=== PATIENT | male | born 1980 | race Caucasian/White ===

== ENCOUNTER 2016-09-02 11:53 | Inpatient (IN) | payer SELFPAY ==
[~2016-09-02] VITALS: Ht 175.3 cm; Wt 111.7 kg
[2016-09-02] MEDS ORDERED: IV NORMAL SALINE 1000ML BAG 1,000 ML IV SCH (13:00)
[2016-09-02] MEDS ORDERED: ONDANSETRON PF 4 MG/2 ML VIAL. IV ONE (13:00)
[2016-09-02] MEDS: FENTANYL PF 100 MCG/2 ML VIAL. IV PRN ×4 (13:13→14:52)
--- NOTE | 2016-09-02 13:13 | PHYS DOC ---
Past Medical History Past Medical History: Cancer, Other Additional Past Medical Histor: gastric ulcers; C-diff Past Surgical History: Tonsillectomy, Other Additional Past Surgical Histo: partial colectomy; ulcer sx Alcohol Use: Rarely Drug Use: None Adult General Chief Complaint Chief Complaint: NAUSEA/VOMITING/DIARRHA HPI HPI Patient is a 35 year old male with a history of colon resection in 2010 due to colon cancer presents with a several day to 2 week history of vomiting and diarrhea and stomach cramps. He was seen last night at [facility] and given a liter of IV fluids, reports that CT scan didn't show anything. He was discharged from the ED, states that he has vomited twice this morning and had diarrhea about 3 times an hour. He's had blood in his emesis and stool. He continues to have stomach cramps. He does have an ongoing problem with stomach cramps, he was referred to a GI doctor at . He has seen Dr. Gallegos at [facility]. He had an endoscopy in April 2016 that showed "a lot of inflammation" but he doesn't believe they gave him a specific diagnosis. Review of Systems Review of Systems Constitutional: Denies fever or chills [] Eyes: Denies change in visual acuity, redness, or eye pain [] HENT: Denies nasal congestion or sore throat [] Respiratory: Denies cough or shortness of breath [] Cardiovascular: Denies chest pain GI: As in history of present illness : Denies dysuria or hematuria [] Musculoskeletal: Denies back pain or joint pain [] Integument: Denies rash or skin lesions [] Neurologic: Denies headache, focal weakness or sensory changes [] Current Medications Current Medications Current Medications Medications (Trade) Dose Ordered Sig/Roel Start Time Stop Time Status Last Admin Dose Admin Fentanyl Citrate (Fentanyl 2ml Vial) 25 mcg PRN Q15MIN PRN 09/02/16 13:00 09/02/16 16:50 DC 09/02/16 14:52 25 MCG Ondansetron HCl 4 mg 4 mg 1X ONCE 09/02/16 13:00 09/02/16 13:05 DC 09/02/16 13:12 4 MG Sodium Chloride (Iv Sodium Chloride 0.9% 1000ml Bag) 1,000 ml @ 1,000 mls/hr 1X ONCE 09/02/16 16:00 09/02/16 16:59 DC 09/02/16 16:06 1,000 MLS/HR Allergies Allergies Allergies Coded Allergies Type Severity Reaction Last Updated Verified No Known Drug Allergies 09/02/16 No Physical Exam Physical Exam Constitutional: Well developed, well nourished, no acute distress, non-toxic appearance. Tachycardic in the 130s, alert, mentating normally. HENT: Normocephalic, atraumatic, bilateral external ears normal, nose normal. [ ] Eyes: conjunctiva normal, no discharge. [] Neck: Normal range of motion, no stridor. [] Cardiovascular:Heart rate regular tachycardia, no murmur [] Lungs & Thorax: Bilateral breath sounds clear to auscultation [] Abdomen: Bowel sounds quiet, not obstructive sounding,, soft, nondistended, no masses, no pulsatile masses. Mild tenderness to palpation on the right side of the abdomen nonspecifically. No rebound or guarding. Skin: Warm, dry, no erythema, no rash. [] Back: No tenderness, no CVA tenderness. [] Extremities: No tenderness, no cyanosis, no clubbing, ROM intact, no edema. [] Neurologic: Alert and oriented X 3, normal motor function, normal sensory function, no focal deficits noted. [] Current Patient Data Vital Signs Vital Signs Date Time Temp Pulse Resp B/P Pulse Ox O2 Delivery O2 Flow Rate FiO2 09/02/16 16:01 114 18 156/97 94 09/02/16 15:31 Room Air 09/02/16 12:40 98.4 98.4 Lab Values Laboratory Tests Test 09/02/16 12:46 09/02/16 13:10 09/02/16 16:00 White Blood Count 46.8x10^3/uL (4.0-11.0) *H Red Blood Count 6.10x10^6/uL (4.30-5.70) H Hemoglobin 18.1g/dL (13.0-17.5) H Hematocrit 52.6% (39.0-53.0) Mean Corpuscular Volume 86fL (79-100) Mean Corpuscular Hemoglobin 30pg (25-35) Mean Corpuscular Hemoglobin Concent 35g/dL (31-37) Red Cell Distribution Width 12.9% (11.5-14.5) Platelet Count 596x10^3/uL (140-400) H Neutrophils (%) (Auto) 87% (31-73) H Lymphocytes (%) (Auto) 10% (24-48) L Monocytes (%) (Auto) 4% (0-9) Eosinophils (%) (Auto) 0% (0-3) Basophils (%) (Auto) 0% (0-3) Neutrophils # (Auto) 40.6x10^3uL (1.8-7.7) H Lymphocytes # (Auto) 4.5x10^3/uL (1.0-4.8) Monocytes # (Auto) 1.7x10^3/uL (0.0-1.1) H Eosinophils # (Auto) 0.0x10^3/uL (0.0-0.7) Basophils # (Auto) 0.1x10^3/uL (0.0-0.2) Segmented Neutrophils % 75% (35-66) H Band Neutrophils % 6% (0-9) Lymphocytes % 16% (24-48) L Monocytes % 3% (0-10) Toxic Granulation Slight Platelet Estimate Adequate (ADEQUATE) Sodium Level 139mmol/L (136-145) Potassium Level 3.5mmol/L (3.5-5.1) Chloride Level 101mmol/L (98-107) Carbon Dioxide Level 17mmol/L (21-32) L Anion Gap 21 (6-14) H Blood Urea Nitrogen 16mg/dL (8-26) Creatinine 1.3mg/dL (0.7-1.3) Estimated GFR (Cockcroft-Gault) 62.5 BUN/Creatinine Ratio 12 (6-20) Glucose Level 239mg/dL (70-99) H Calcium Level 9.8mg/dL (8.5-10.1) Total Bilirubin 0.7mg/dL (0.2-1.0) Aspartate Amino Transferase (AST) 38U/L (15-37) H Alanine Aminotransferase (ALT) 88U/L (16-63) H Alkaline Phosphatase 113U/L (46-116) Total Protein 9.0g/dL (6.4-8.2) H Albumin 4.2g/dL (3.4-5.0) Albumin/Globulin Ratio 0.9 (1.0-1.7) L Lipase 124U/L (73-393) Urine Collection Type Unknown Urine Color [place] Urine Clarity Clear Urine pH 6.0 Urine Specific [place] >=1.030 Urine Protein 100mg/dL (NEG-TRACE) Urine Glucose (UA) 100mg/dL (NEG) Urine Ketones (Stick) 15mg/dL (NEG) Urine Blood Negative (NEG) Urine Nitrite Negative (NEG) Urine Bilirubin Negative (NEG) Urine Urobilinogen Dipstick 0.2mg/dL (0.2 mg/dL) Urine Leukocyte Esterase Negative (NEG) Urine RBC 0/HPF (0-2) Urine WBC 0/HPF (0-4) Urine Bacteria 0/HPF (0-FEW) Urine Hyaline Casts Many/HPF Urine Mucus Marked/LPF Urine Opiates Screen Pos (NEG) Urine Methadone Screen Neg (NEG) Urine Barbiturates Neg (NEG) Urine Phencyclidine Screen Neg (NEG) Urine Amphetamine/Methamphetamine Neg (NEG) Urine Benzodiazepines Screen Neg (NEG) Urine Cocaine Screen Neg (NEG) Urine Cannabinoids Screen Neg (NEG) Urine Ethyl Alcohol Neg (NEG) Lactic Acid Level 2.6mmol/L (0.4-2.0) H Laboratory Tests 09/02/16 12:46 Laboratory Tests 09/02/16 12:46 EKG EKG 12-lead EKG read by me. Sinus tachycardia. Heart rate 135. There are no acute ST or T wave changes indicative of ischemia or infarction. No STEMI. 1238 [] Radiology/Procedures Radiology/Procedures I reviewed the patient's CT scan of the abdomen and pelvis results from last night at [facility]. Radiologist reading is no acute findings. One view portable chest x-ray today read by the radiologist. No acute abnormality. [] Course & Med Decision Making Course & Med Decision Making Pertinent Labs and Imaging studies reviewed. (See chart for details) I talked to the patient and his . Since he just had a CT scan last night at [facility], we will not repeat that. His abdomen exam is quite benign today. He is quite tachycardic, likely from dehydration. We will give him a liter of IV fluids and check some labs. They're agreeable to that plan. After 2 L the patient remained tachycardic although improved from 130s to 1 teens. I ordered a third liter of IV fluids. Last night in the [facility] ED his white count was elevated at over 29,000, today it is even much higher at 46, 000. We do not have an explanation for this. The patient's abdomen exam is really quite benign. CT scan last night was unrevealing. I don't believe that his leukocytosis is from an intra-abdominal etiology. Although he complained of diarrhea 3 times an hour, he was in the ED for several hours and didn't have any diarrhea at all here. He didn't have any vomiting but was given an antiemetic. We will admit the patient for his marked leukocytosis. I discussed the case with Dr. leger, [facility]. He will admit the patient. I wrote bridge orders. [] Dragon Disclaimer Dragon Disclaimer This electronic medical record was generated, in whole or in part, using a voice recognition dictation system. Departure Departure Impression: Primary Impression: Leukocytosis Additional Impression: Dehydration Disposition: ADMITTED INPATIENT Admitting Physician: Bing Leger Condition: IMPROVED Referrals: ILIANA GALLEGOS (PCP) Problem Qualifiers NALDO DAVENPORT MD Sep 02, 2016 13:13
[2016-09-02 13:19] LABS: CALCIUM 9.8 mg/dL (8.5-10.1); CREATININE 1.3 mg/dL (0.7-1.3); GFR 62.5; POTASSIUM 3.5 mmol/L (3.5-5.1)
[2016-09-02 13:24] LABS: ALBUMIN 4.2 g/dL (3.4-5.0); ALBUMIN/GLOBULIN RATIO 0.9 (1.0-1.7); TOTAL BILIRUBIN 0.7 mg/dL (0.2-1.0)
[2016-09-02 13:25] LABS: BILIRUBIN,URINE NEGATIVE (NEG); GLUCOSE,URINE 100 mg/dL (NEG); NITRITE,URINE NEGATIVE (NEG); PROTEIN,URINE 100 mg/dL (NEG-TRACE); UROBILINOGEN,URINE 0.2 mg/dL (0.2 mg/dL)
[2016-09-02 13:26] LABS: BASO # 0.1 x10^3/uL (0.0-0.2); BASO % 0 % (0-3); EOS % 0 % (0-3); HEMATOCRIT 52.6 % (39.0-53.0); HEMOGLOBIN 18.1 g/dL (13.0-17.5); LYMPH # 4.5 x10^3/uL (1.0-4.8); LYMPH % 10 % (24-48); MEAN CORPUSCULAR HEMOGLOBIN 30 pg (25-35); MEAN CORPUSCULAR HGB CONC 35 g/dL (31-37); MEAN CORPUSCULAR VOLUME 86 fL (79-100); MONO % 4 % (0-9); NEUT % 87 % (31-73); PLATELET COUNT 596 x10^3/uL (140-400); RED CELL DISTRIBUTION WIDTH 12.9 % (11.5-14.5)
[2016-09-02 13:33] LABS: BARBITURATES NEG (NEG); BENZODIAZEPINES NEG (NEG); CANNABINOIDS NEG (NEG); COCAINE NEG (NEG); ETHANOL, URINE NEG (NEG); METHADONE NEG (NEG); OPIATES POS (NEG); PHENCYCLIDINE NEG (NEG)
[2016-09-02 13:36] LABS: BACTERIA,URINE 0 /HPF (0-FEW); RBC,URINE 0 /HPF (0-2); WBC,URINE 0 /HPF (0-4)
[2016-09-02 13:39] LABS: WHITE BLOOD COUNT 46.8 x10^3/uL (4.0-11.0)
[2016-09-02] MEDS ORDERED: IV NORMAL SALINE 1000ML BAG 1,000 ML IV ONE ×3 (13:45→23:00)
--- NOTE | 2016-09-02 14:01 | EKG ---
[facility] [address] [place] [address] Test Date: 2016-09-02 Test Time: 12:38:57 Pat Name: DEB HOWELL Department: Room: Gender: M Grab Hooker: : 1980 Requested By: NALDO DAVENPORT Order Number: [id number] Reading MD: Carolyne Burnette Measurements Intervals [place] Rate: 135 P: -86 NV: 124 QRS: 12 QRSD: 90 T: 62 QT: 294 QTc: 445 Interpretive Statements SINUS TACHYCARDIA OTHERWISE NORMAL ECG RI6.01 No previous ECG available for comparison Electronically Signed On 09-06-2016 15:29:00 X RAY SERVICE TECHNICIAN by Carolyne Burnette
[2016-09-02 14:51] LABS: PLT ESTIMATE ADEQUATE (ADEQUATE); TOXIC GRANULATION SLIGHT
--- NOTE | 2016-09-02 16:11 | RAD ---
Portable AP upright view CXR: Clinical indications: Epigastric pain with nausea and vomiting. Leukocytosis.. Comparison: None available. Findings: No acute lung infiltrate or pleural effusion or pulmonary edema or lung mass or pneumothorax is seen. The heart size, pulmonary vasculature, mediastinum and both miguel angel are unremarkable. Impression: No acute radiographic abnormality is seen.
[2016-09-02] MEDS ORDERED: FENTANYL PF 100 MCG/2 ML VIAL. IV PRN (16:15)
[2016-09-02] MEDS ORDERED: ONDANSETRON PF 4 MG/2 ML VIAL. IV PRN (16:15)
--- NOTE | 2016-09-02 16:57 | PDOC1 ---
History and Physical Date of Admission Date of Admission DATE: 09/02/16 TIME: 16:52 Identification/Chief Complaint Chief Complaint abd pain, diarrhea Source Source: Caregiver, Chart review, Patient History of Present Illness History of Present Illness Mr Bower, is a 35 year old male with a history of colon resection in 2010 due to colon cancer. He has a 2 day history of abd pain and diarrhea. He was seen in ER at [facility] yesterday, marked leukocytosis, appeared dehydrated, given 2 liters IV fluid and DC from ER Pt has mult freq stools, he feels unlike prior c. diff due to smell./ He has history of multiple c.diff infections, reports 8 prior infection evenet his PCP had recently given him Toradol for abd pain, and patient reports vomiting "blood clots" last night, and abd pain is worse, 02/[address] Gallegos at [facility] Past Medical History Cardiovascular: No pertinent hx Pulmonary: No pertinent hx GI: Gastritis, Other (c.diff) Heme/Onc: Cancer Psych: No pertinent hx Rheumatologic: No pertinent hx Infectious disease: Other ENT: No pertinent hx Renal/: No pertinent hx Endocrine: No pertinent hx Dermatology: No pertinent hx Social History Smoke: No ALCOHOL: none Drugs: None Current Problem List Problem List Problems Medical Problems: (1) Dehydration Status: Acute (2) Leukocytosis Status: Acute Problems: Current Medications Current Medications Current Medications Fentanyl Citrate 25 mcg 25 mcg PRN Q15MIN PRN IV PAIN GREATER THAN 3/10 Last administered on 09/02/16 14:52; Start 09/02/16 at 13:00; Stop 09/02/16 at 16:50; Status DC Sodium Chloride (Iv Sodium Chloride 0.9% 1000ml Bag) 1,000 ml @ 1,000 mls/hr Q1H IV Last administered on 09/02/16 13:12; Start 09/02/16 at 13:00; Stop at 13:59; Status DC Ondansetron HCl 4 mg 4 mg 1X ONCE IV Last administered on 09/02/16 13:12; Start 09/02/16 at 13:00; Stop 09/02/16 at 13:05; Status DC Sodium Chloride 1,000 ml @ 1,000 mls/hr 1X ONCE IV Last administered on 14:08; Start 09/02/16 at 13:45; Stop 09/02/16 at 14:44; Status DC Sodium Chloride (Iv Sodium Chloride 0.9% 1000ml Bag) 1,000 ml @ 1,000 mls/hr 1X ONCE IV Last administered on 09/02/16t 16:06; Start 09/02/16 at 16:00; Stop 09/02/16 at 16:59 Ondansetron HCl (Zofran) 4 mg PRN Q8HRS PRN IV NAUSEA/VOMITING; Start 09/02/16 at 16:15; Stop 09/03/16 at 16:14 Fentanyl Citrate 50 mcg 50 mcg PRN Q1HR PRN IV PAIN; Start 09/02/16 at 16:15; Stop 09/04/16 at 23:59 Sodium Chloride (Iv Sodium Chloride 0.9% 1000ml Bag) 1,000 ml @ 100 mls/hr Q10H IV ; Start 09/02/16 at 16:06; Stop 09/03/16 at 16:05 Metronidazole (Flagyl) 500 mg Q8HRS PO ; Start 09/02/16 at 17:00 Morphine Sulfate 4 mg PRN Q2HR PRN IV pain; Start 09/02/16 at 17:00 Oxycodone/ Acetaminophen (Percocet 7.5/ 325) 1 tab PRN Q4HRS PRN PO pain; Start 09/02/16 at 17:00 Multi-Ingredient Mouthwash/Gargle (Gi Cocktail Single Dose) 15 ml 1X ONCE SWSW ; Start 09/02/16 at 17:00; Stop 09/02/16 at 17:01 Sucralfate (Carafate) 1 gm BID PO ; Start 09/02/16 at 21:00 Pantoprazole Sodium (Protonix Vial) 40 mg 1X ONCE IVP ; Start 09/02/16 at 17:00 ; Stop 09/02/16 at 17:01 Pantoprazole Sodium (Protonix) 40 mg BIDAC PO ; Start 09/03/16 at 07:30 Insulin Aspart (Novolog) 0-7 UNITS TIDWMEALS SQ ; Start 09/02/16 at 17:00; Status UNV Dextrose 12.5 gm 12.5 gm PRN Q15MIN PRN IV SEE COMMENTS; Start 09/02/16 at 17:00 ; Status UNV Potassium Chloride (KCl Premix 10meq) 100 ml @ 100 mls/hr Q1H IV ; Start at 17:00; Stop 09/02/16 at 18:59; Status UNV Allergies Allergies: Coded Allergies: No Known Drug Allergies (Unverified , 09/02/16) ROS General: YES: Appetite, Fatigue, Malaise, No: Chills, Night Sweats, Other PSYCHOLOGICAL ROS: No: Anxiety, Behavioral Disorder, Concentration difficultie , Decreased libido, Depression, Disorientation, Hallucinations, Hostility, Irritablity, Memory difficulties, Mood Swings, Obsessive thoughts, Other, Physical abuse, Sexual abuse, Sleep disturbances, Suicidal ideation Eyes: No Blurry vision, No Decreased vision, No Double vision, No Dry eyes, No Excessive tearing, No Eye Pain, No Itchy Eyes, No Loss of vision, No Other, No Photophobia, No Scotomata, No Uses contacts, No Uses glasses HEENT: No: Epistaxis, Heacaches, Hearing change, Nasal congestion, Nasal discharge, Oral lesions, Other, Sinus pain, Sneezing, Snoring, Sore Throat, Tinnitus, Vertigo, Visual Changes, Vocal changes Respiratory: No: Cough, Hemoptysis, Orthopnea, Other, Pleuritic Pain, SOB with excertion, Shortness of breath, Sputum Changes, Stridor, Tachypnea, Wheezing Cardiovascular: No Chest Pain, No Edema, No Lt Headedness, No Orthopnea, No Other, No Palpitations, No Paroxysmal Noc. Dyspnea Gastrointestinal: Yes Abdominal Pain, Yes Diarrhea, Yes Nausea, Yes Other ( hematemesis), Yes Vomiting, No Constipation, No Hematochezia, No Melena Genitourinary: No , No , No , No , No , No , No , No Discharge, No Dysuria, No Flank Pain, No Frequency, No Hematuria, No Incontinence, No Other, No Pain, No Retention, No Urgency Musculoskeletal: No Gait Disturbance, No Joint Pain, No Joint Stiffness, No Joint Swelling, No Muscle Pain, No Muscular Weakness, No Other, No Pain In:, No Swelling In: Neurological: No Behavorial Changes, No Bowel/Bladder ControlChng, No Confusion , No Dizziness, No Gait Disturbance, No Headaches, No Impaired Coord/balance, No Memory Loss, No Numbness/Tingling, No Other, No Seizures, No Speech Problems , No Tremors, No Visual Changes, No Weakness Skin: Yes Dry Skin, No Acne, No Eczema, No Hair Changes, No Lumps, No Mole Changes, No Mottling, No Nail Changes, No Other, No Pruritus, No Rash, No Skin Lesion Changes Physical Exam General: Alert, Oriented X3, Cooperative, mild distress HEENT: Atraumatic, PERRLA, EOMI, Mucous membr. moist/pink Lungs: Clear to auscultation, Normal air movement Heart: S1S2 Abdomen: Normal bowel sounds, Soft (tender diffusely) Rectal Exam: not examined Extremities: No clubbing Skin: No rashes, Other (dry, poor turgor) Neuro: Normal speech, Normal tone, Sensation intact Psych/Mental Status: Mood NL Vitals Vitals Vital Signs Date Time Temp Pulse Resp B/P Pulse Ox O2 Delivery O2 Flow Rate FiO2 09/02/16 15:31 108 18 150/87 94 Room Air 09/02/16 12:40 98.4 98.4 Labs Labs Laboratory Tests Test 09/02/16 12:46 09/02/16 13:10 09/02/16 16:00 White Blood Count 46.8x10^3/uL (4.0-11.0) Red Blood Count 6.10x10^6/uL (4.30-5.70) Hemoglobin 18.1g/dL (13.0-17.5) Hematocrit 52.6% (39.0-53.0) Mean Corpuscular Volume 86fL (79-100) Mean Corpuscular Hemoglobin 30pg (25-35) Mean Corpuscular Hemoglobin Concent 35g/dL (31-37) Red Cell Distribution Width 12.9% (11.5-14.5) Platelet Count 596x10^3/uL (140-400) Neutrophils (%) (Auto) 87% (31-73) Lymphocytes (%) (Auto) 10% (24-48) Monocytes (%) (Auto) 4% (0-9) Eosinophils (%) (Auto) 0% (0-3) Basophils (%) (Auto) 0% (0-3) Neutrophils # (Auto) 40.6x10^3uL (1.8-7.7) Lymphocytes # (Auto) 4.5x10^3/uL (1.0-4.8) Monocytes # (Auto) 1.7x10^3/uL (0.0-1.1) Eosinophils # (Auto) 0.0x10^3/uL (0.0-0.7) Basophils # (Auto) 0.1x10^3/uL (0.0-0.2) Segmented Neutrophils % 75% (35-66) Band Neutrophils % 6% (0-9) Lymphocytes % 16% (24-48) Monocytes % 3% (0-10) Toxic Granulation Slight Platelet Estimate Adequate (ADEQUATE) Sodium Level 139mmol/L (136-145) Potassium Level 3.5mmol/L (3.5-5.1) Chloride Level 101mmol/L (98-107) Carbon Dioxide Level 17mmol/L (21-32) Anion Gap 21 (6-14) Blood Urea Nitrogen 16mg/dL (8-26) Creatinine 1.3mg/dL (0.7-1.3) Estimated GFR (Cockcroft-Gault) 62.5 BUN/Creatinine Ratio 12 (6-20) Glucose Level 239mg/dL (70-99) Calcium Level 9.8mg/dL (8.5-10.1) Total Bilirubin 0.7mg/dL (0.2-1.0) Aspartate Amino Transf (AST/SGOT) 38U/L (15-37) Alanine Aminotransferase (ALT/SGPT) 88U/L (16-63) Alkaline Phosphatase 113U/L (46-116) Total Protein 9.0g/dL (6.4-8.2) Albumin 4.2g/dL (3.4-5.0) Albumin/Globulin Ratio 0.9 (1.0-1.7) Lipase 124U/L (73-393) Urine Collection Type Unknown Urine Color [place] Urine Clarity Clear Urine pH 6.0 Urine Specific [place] >=1.030 Urine Protein 100mg/dL (NEG-TRACE) Urine Glucose (UA) 100mg/dL (NEG) Urine Ketones (Stick) 15mg/dL (NEG) Urine Blood Negative (NEG) Urine Nitrite Negative (NEG) Urine Bilirubin Negative (NEG) Urine Urobilinogen Dipstick 0.2mg/dL (0.2 mg/dL) Urine Leukocyte Esterase Negative (NEG) Urine RBC 0/HPF (0-2) Urine WBC 0/HPF (0-4) Urine Bacteria 0/HPF (0-FEW) Urine Hyaline Casts Many/HPF Urine Mucus Marked/LPF Urine Opiates Screen Pos (NEG) Urine Methadone Screen Neg (NEG) Urine Barbiturates Neg (NEG) Urine Phencyclidine Screen Neg (NEG) Urine Amphetamine/Methamphetamine Neg (NEG) Urine Benzodiazepines Screen Neg (NEG) Urine Cocaine Screen Neg (NEG) Urine Cannabinoids Screen Neg (NEG) Urine Ethyl Alcohol Neg (NEG) Lactic Acid Level 2.6mmol/L (0.4-2.0) Laboratory Tests Test 09/02/16 12:46 09/02/16 13:10 09/02/16 16:00 White Blood Count 46.8x10^3/uL (4.0-11.0) Red Blood Count 6.10x10^6/uL (4.30-5.70) Hemoglobin 18.1g/dL (13.0-17.5) Hematocrit 52.6% (39.0-53.0) Mean Corpuscular Volume 86fL (79-100) Mean Corpuscular Hemoglobin 30pg (25-35) Mean Corpuscular Hemoglobin Concent 35g/dL (31-37) Red Cell Distribution Width 12.9% (11.5-14.5) Platelet Count 596x10^3/uL (140-400) Neutrophils (%) (Auto) 87% (31-73) Lymphocytes (%) (Auto) 10% (24-48) Monocytes (%) (Auto) 4% (0-9) Eosinophils (%) (Auto) 0% (0-3) Basophils (%) (Auto) 0% (0-3) Neutrophils # (Auto) 40.6x10^3uL (1.8-7.7) Lymphocytes # (Auto) 4.5x10^3/uL (1.0-4.8) Monocytes # (Auto) 1.7x10^3/uL (0.0-1.1) Eosinophils # (Auto) 0.0x10^3/uL (0.0-0.7) Basophils # (Auto) 0.1x10^3/uL (0.0-0.2) Segmented Neutrophils % 75% (35-66) Band Neutrophils % 6% (0-9) Lymphocytes % 16% (24-48) Monocytes % 3% (0-10) Toxic Granulation Slight Platelet Estimate Adequate (ADEQUATE) Sodium Level 139mmol/L (136-145) Potassium Level 3.5mmol/L (3.5-5.1) Chloride Level 101mmol/L (98-107) Carbon Dioxide Level 17mmol/L (21-32) Anion Gap 21 (6-14) Blood Urea Nitrogen 16mg/dL (8-26) Creatinine 1.3mg/dL (0.7-1.3) Estimated GFR (Cockcroft-Gault) 62.5 BUN/Creatinine Ratio 12 (6-20) Glucose Level 239mg/dL (70-99) Calcium Level 9.8mg/dL (8.5-10.1) Total Bilirubin 0.7mg/dL (0.2-1.0) Aspartate Amino Transf (AST/SGOT) 38U/L (15-37) Alanine Aminotransferase (ALT/SGPT) 88U/L (16-63) Alkaline Phosphatase 113U/L (46-116) Total Protein 9.0g/dL (6.4-8.2) Albumin 4.2g/dL (3.4-5.0) Albumin/Globulin Ratio 0.9 (1.0-1.7) Lipase 124U/L (73-393) Urine Collection Type Unknown Urine Color [place] Urine Clarity Clear Urine pH 6.0 Urine Specific [place] >=1.030 Urine Protein 100mg/dL (NEG-TRACE) Urine Glucose (UA) 100mg/dL (NEG) Urine Ketones (Stick) 15mg/dL (NEG) Urine Blood Negative (NEG) Urine Nitrite Negative (NEG) Urine Bilirubin Negative (NEG) Urine Urobilinogen Dipstick 0.2mg/dL (0.2 mg/dL) Urine Leukocyte Esterase Negative (NEG) Urine RBC 0/HPF (0-2) Urine WBC 0/HPF (0-4) Urine Bacteria 0/HPF (0-FEW) Urine Hyaline Casts Many/HPF Urine Mucus Marked/LPF Urine Opiates Screen Pos (NEG) Urine Methadone Screen Neg (NEG) Urine Barbiturates Neg (NEG) Urine Phencyclidine Screen Neg (NEG) Urine Amphetamine/Methamphetamine Neg (NEG) Urine Benzodiazepines Screen Neg (NEG) Urine Cocaine Screen Neg (NEG) Urine Cannabinoids Screen Neg (NEG) Urine Ethyl Alcohol Neg (NEG) Lactic Acid Level 2.6mmol/L (0.4-2.0) VTE Prophylaxis Ordered VTE Prophylaxis Devices: No VTE Pharmacological Prophylaxi: Yes Assessment/Plan Assessment/Plan acute abd pain, w/. diarrhea isolate, send c.diff due to prior hx, start flagyl, consult ID Acute abd pain, hematemesis, given NSAID for pain recently, PPI IV x1, then PO BID, carafate GI consult, for GERD, maybe active ulcer Metabolic gap acidosis, tachycardia, tachpnea, leukocytosis, sepsis, lactate pending 3 liters IV Fluid given in ER, HR still 110, will cont iv fluid unsure if CKD2 or vasomotor, aggressive IV fluid potassium X2 due to aggressive fluid admit from ER LUPE LIVE MD Sep 02, 2016 16:57
[2016-09-02] MEDS ORDERED: POTASSIUM CHLORIDE 20 MEQ TABLET.ER. PO ONE (17:00)
[2016-09-02] MEDS ORDERED: DEXTROSE 50% 25 GM / 50ML DISP.SYRIN. IV PRN (17:00)
[2016-09-02] MEDS ORDERED: LIDO:MAALOX:DONNATAL 1:1:1 15 ML SINGLE DOSE SWSW ONE (17:00)
[2016-09-02] MEDS ORDERED: PANTOPRAZOLE IV PUSH 40 MG VIAL. IVP ONE (17:00)
[2016-09-02] MEDS: IV NORMAL SALINE 1000ML BAG 1,000 ML IV SCH (17:20)
[2016-09-02] MEDS: METRONIDAZOLE 500 MG TABLET. PO SCH ×2 (17:21→20:54)
[2016-09-02] MEDS: INSULIN ASPART 300 UNITS/3 ML INSULN.PEN SQ SCH (17:30)
[2016-09-02] MEDS: POTASSIUM CHLORIDE 10MEQ 100 ML IV SCH ×2 (18:21→19:56)
[2016-09-02] MEDS: ENOXAPARIN 40 MG/0.4 ML DISP.SYRIN. SQ SCH (18:31)
[2016-09-02 19:00] VITALS: BP 113/90
[2016-09-02] MEDS: SUCRALFATE 1 GM TABLET. PO SCH (20:54)
[2016-09-02] MEDS: MORPHINE SULFATE 4 MG/ML DISP.SYRIN. IV PRN ×2 (20:55→23:15)
[2016-09-02] MEDS ORDERED: ZOLP10TA4 PO (21:02)
[2016-09-02 22:34] VITALS: BP 123/66
[2016-09-02] MEDS: CIPROFLOXACIN HCL 250 MG TABLET PO SCH (23:58)
[2016-09-03 00:08] LABS: CALCIUM 8.2 mg/dL (8.5-10.1); CREATININE 0.8 mg/dL (0.7-1.3); GFR 109.4; POTASSIUM 3.4 mmol/L (3.5-5.1)
[2016-09-03] MEDS: OXYCODONE/APAP 7.5/325 TABLET. PO PRN ×4 (00:23→21:25)
[2016-09-03] MEDS: IV NORMAL SALINE 1000ML BAG 1,000 ML IV SCH ×2 (00:24→11:47)
[2016-09-03] MEDS: MORPHINE SULFATE 4 MG/ML DISP.SYRIN. IV PRN ×8 (01:43→20:04)
[2016-09-03 03:00] VITALS: BP 151/67
[2016-09-03] MEDS: METRONIDAZOLE 500 MG TABLET. PO SCH (05:30)
[2016-09-03 07:15] LABS: BASO # 0.1 x10^3/uL (0.0-0.2); BASO % 0 % (0-3); EOS % 0 % (0-3); HEMOGLOBIN 13.7 g/dL (13.0-17.5); LYMPH # 5.9 x10^3/uL (1.0-4.8); LYMPH % 21 % (24-48); MEAN CORPUSCULAR HEMOGLOBIN 29 pg (25-35); MEAN CORPUSCULAR HGB CONC 33 g/dL (31-37); MEAN CORPUSCULAR VOLUME 88 fL (79-100); MONO % 5 % (0-9); NEUT % 74 % (31-73); PLATELET COUNT 328 x10^3/uL (140-400); RED BLOOD COUNT 4.66 x10^6/uL (4.30-5.70); RED CELL DISTRIBUTION WIDTH 12.7 % (11.5-14.5); WHITE BLOOD COUNT 28.6 x10^3/uL (4.0-11.0)
[2016-09-03 07:27] VITALS: BP 124/70
[2016-09-03] MEDS: INSULIN ASPART 300 UNITS/3 ML INSULN.PEN SQ SCH ×3 (08:00→16:56)
[2016-09-03] MEDS: PANTOPRAZOLE 40 MG TABLET. PO SCH ×2 (08:39→17:10)
[2016-09-03] MEDS: SUCRALFATE 1 GM TABLET. PO SCH ×2 (08:39→20:04)
[2016-09-03] MEDS: VANCOMYCIN 125 MG/2.5 ML ORAL SOLUTION. PO SCH ×4 (08:39→21:25)
[2016-09-03] MEDS: CIPROFLOXACIN HCL 250 MG TABLET PO SCH (08:39)
[2016-09-03 09:14] LABS: ALBUMIN/GLOBULIN RATIO 0.9 (1.0-1.7); CREATININE 0.8 mg/dL (0.7-1.3); GFR 109.4; POTASSIUM 3.2 mmol/L (3.5-5.1); TOTAL BILIRUBIN 0.6 mg/dL (0.2-1.0); TOTAL PROTEIN 6.2 g/dL (6.4-8.2)
--- NOTE | 2016-09-03 09:57 | PDOC2 ---
GI CONSULT Reason For Consult: Diarrhea, h/o colon cancer HPI: HPI: 35 y/o male w/ h/o colon cancer s/p resection in 2010, C Diff (x8 treated w/ Flagyl and oral vanco), and chronic abdominal pain and irregular bowel habits admitted through the ER w/ n/v, diarrhea, and abdominal cramping. He tells me he's been feeling badly since 2013 but symptoms have been worse x 2 weeks. He denies precipitating events including sick contacts, new medication/antibiotic use, and travel. Symptoms began w/ worsening periumbilical "squeezing and twisting" pain that is occasionally aggravated w/ activity. Vicodin has helped similar pain in the past; he saw a doctor and tried Tramadol this time which unhelpful. Since surgery, his bowel habits have been more diarrhea; usually he has 1-3 stools daily, often after eating. Within the past 2 weeks, this has been significantly worse (says >30 stools one day this week). Diarrhea does not seem like previous C Diff. He has had some nausea, mostly w/ cramping, and 2 episodes of vomiting. On 09/01, emesis might have had "dark blood clots" in it. Denies weight loss. Has occasional heartburn that is untreated. Has "sweats" fairly frequently. Feels all previous evaluations (GI and otherwise) have been "useless." Unemployed due to GI issues. Last EGD and colonoscopy by Dr. Dang on 01/17/16 for nausea, abdominal pain, and diarrhea showed esophagitis, H. pylori negative gastritis, and hyperplastic polyp. Pathology from 04/12/15 indicates another previous colonoscopy by Dr. Cyn Daugherty for chronic diarrhea which showed hyperplastic polyp and normal random colon and terminal ileum biopsies. He has also been to for similar symptoms. In fact, he was supposed to have an MRI (?abdomen) yesterday. Additionally, through [facility], he had abnormal celiac serology in 10/2015. He reports follow-up small bowel biopsy (?at ) was negative for celiac sprue. He has recently been to [facility] ER for these symptoms. CT A/P w/ oral and IV contrast on 09/01/16 showed fatty liver and was unrevealing for acute issue. Leukocytosis and dehydration were noted on labs. Here, labs show WBC 46.8 (now 28.6), Hgb 13.7, AST 38, ALT 88, lactic acid 2.6 ( now 1.5). He has been placed on Carafate, PPI, vanco, Cipro, and metronidazole. Stool tests, cortisol level, and celiac serology have been ordered. ID consulted. PMH: PMH: colon cancer s/p resection 2010, GERD, C Diff, tonsillectomy, fatty liver Social History: Smoke: No ALCOHOL: none Drugs: None ROS: GEN: +sweats HEENT: Denies blurred vision, sore throat CV: Denies chest pain RESP: Denies shortness of air, cough GI: Per HPI : Denies hematuria, dysuria ENDO: Denies weight changes NEURO: Denies confusion, dizziness MSK: Denies weakness, joint pain/swelling SKIN: Denies jaundice, pruritus VItals: Vitals: Vital Signs Date Time Temp Pulse Resp B/P Pulse Ox O2 Delivery O2 Flow Rate FiO2 09/03/16 09:24 Room Air 09/03/16 07:27 97.5 93 20 124/70 96 97.5 Labs: Labs: Laboratory Tests Test 09/02/16 12:46 09/02/16 13:10 09/02/16 16:00 09/02/16 20:45 White Blood Count 46.8x10^3/uL (4.0-11.0) Red Blood Count 6.10x10^6/uL (4.30-5.70) Hemoglobin 18.1g/dL (13.0-17.5) Hematocrit 52.6% (39.0-53.0) Mean Corpuscular Volume 86fL (79-100) Mean Corpuscular Hemoglobin 30pg (25-35) Mean Corpuscular Hemoglobin Concent 35g/dL (31-37) Red Cell Distribution Width 12.9% (11.5-14.5) Platelet Count 596x10^3/uL (140-400) Neutrophils (%) (Auto) 87% (31-73) Lymphocytes (%) (Auto) 10% (24-48) Monocytes (%) (Auto) 4% (0-9) Eosinophils (%) (Auto) 0% (0-3) Basophils (%) (Auto) 0% (0-3) Neutrophils # (Auto) 40.6x10^3uL (1.8-7.7) Lymphocytes # (Auto) 4.5x10^3/uL (1.0-4.8) Monocytes # (Auto) 1.7x10^3/uL (0.0-1.1) Eosinophils # (Auto) 0.0x10^3/uL (0.0-0.7) Basophils # (Auto) 0.1x10^3/uL (0.0-0.2) Segmented Neutrophils % 75% (35-66) Band Neutrophils % 6% (0-9) Lymphocytes % 16% (24-48) Monocytes % 3% (0-10) Toxic Granulation Slight Platelet Estimate Adequate (ADEQUATE) Sodium Level 139mmol/L (136-145) Potassium Level 3.5mmol/L (3.5-5.1) Chloride Level 101mmol/L (98-107) Carbon Dioxide Level 17mmol/L (21-32) Anion Gap 21 (6-14) Blood Urea Nitrogen 16mg/dL (8-26) Creatinine 1.3mg/dL (0.7-1.3) Estimated GFR (Cockcroft-Gault) 62.5 BUN/Creatinine Ratio 12 (6-20) Glucose Level 239mg/dL (70-99) Calcium Level 9.8mg/dL (8.5-10.1) Total Bilirubin 0.7mg/dL (0.2-1.0) Aspartate Amino Transf (AST/SGOT) 38U/L (15-37) Alanine Aminotransferase (ALT/SGPT) 88U/L (16-63) Alkaline Phosphatase 113U/L (46-116) Total Protein 9.0g/dL (6.4-8.2) Albumin 4.2g/dL (3.4-5.0) Albumin/Globulin Ratio 0.9 (1.0-1.7) Lipase 124U/L (73-393) Urine Collection Type Unknown Urine Color [place] Urine Clarity Clear Urine pH 6.0 Urine Specific [place] >=1.030 Urine Protein 100mg/dL (NEG-TRACE) Urine Glucose (UA) 100mg/dL (NEG) Urine Ketones (Stick) 15mg/dL (NEG) Urine Blood Negative (NEG) Urine Nitrite Negative (NEG) Urine Bilirubin Negative (NEG) Urine Urobilinogen Dipstick 0.2mg/dL (0.2 mg/dL) Urine Leukocyte Esterase Negative (NEG) Urine RBC 0/HPF (0-2) Urine WBC 0/HPF (0-4) Urine Bacteria 0/HPF (0-FEW) Urine Hyaline Casts Many/HPF Urine Mucus Marked/LPF Urine Opiates Screen Pos (NEG) Urine Methadone Screen Neg (NEG) Urine Barbiturates Neg (NEG) Urine Phencyclidine Screen Neg (NEG) Urine Amphetamine/Methamphetamine Neg (NEG) Urine Benzodiazepines Screen Neg (NEG) Urine Cocaine Screen Neg (NEG) Urine Cannabinoids Screen Neg (NEG) Urine Ethyl Alcohol Neg (NEG) Lactic Acid Level 2.6mmol/L (0.4-2.0) Glucose (Fingerstick) 124mg/dL (70-99) Test 09/02/16 20:55 09/02/16 23:50 09/03/16 06:45 09/03/16 07:55 Lactic Acid Level 3.0mmol/L (0.4-2.0) 1.5mmol/L (0.4-2.0) Sodium Level 141mmol/L (136-145) Potassium Level 3.4mmol/L (3.5-5.1) Chloride Level 109mmol/L (98-107) Carbon Dioxide Level 24mmol/L (21-32) Anion Gap 8 (6-14) Blood Urea Nitrogen 11mg/dL (8-26) Creatinine 0.8mg/dL (0.7-1.3) Estimated GFR (Cockcroft-Gault) 109.4 Glucose Level 100mg/dL (70-99) Calcium Level 8.2mg/dL (8.5-10.1) White Blood Count 28.6x10^3/uL (4.0-11.0) Red Blood Count 4.66x10^6/uL (4.30-5.70) Hemoglobin 13.7g/dL (13.0-17.5) Hematocrit 41.0% (39.0-53.0) Mean Corpuscular Volume 88fL (79-100) Mean Corpuscular Hemoglobin 29pg (25-35) Mean Corpuscular Hemoglobin Concent 33g/dL (31-37) Red Cell Distribution Width 12.7% (11.5-14.5) Platelet Count 328x10^3/uL (140-400) Neutrophils (%) (Auto) 74% (31-73) Lymphocytes (%) (Auto) 21% (24-48) Monocytes (%) (Auto) 5% (0-9) Eosinophils (%) (Auto) 0% (0-3) Basophils (%) (Auto) 0% (0-3) Neutrophils # (Auto) 21.1x10^3uL (1.8-7.7) Lymphocytes # (Auto) 5.9x10^3/uL (1.0-4.8) Monocytes # (Auto) 1.5x10^3/uL (0.0-1.1) Eosinophils # (Auto) 0.0x10^3/uL (0.0-0.7) Basophils # (Auto) 0.1x10^3/uL (0.0-0.2) Glucose (Fingerstick) 82mg/dL (70-99) Test 09/03/16 08:20 Sodium Level 142mmol/L (136-145) Potassium Level 3.2mmol/L (3.5-5.1) Chloride Level 110mmol/L (98-107) Carbon Dioxide Level 24mmol/L (21-32) Anion Gap 8 (6-14) Blood Urea Nitrogen 12mg/dL (8-26) Creatinine 0.8mg/dL (0.7-1.3) Estimated GFR (Cockcroft-Gault) 109.4 BUN/Creatinine Ratio 15 (6-20) Glucose Level 86mg/dL (70-99) Calcium Level 8.0mg/dL (8.5-10.1) Total Bilirubin 0.6mg/dL (0.2-1.0) Aspartate Amino Transf (AST/SGOT) 48U/L (15-37) Alanine Aminotransferase (ALT/SGPT) 66U/L (16-63) Alkaline Phosphatase 76U/L (46-116) Total Protein 6.2g/dL (6.4-8.2) Albumin 3.0g/dL (3.4-5.0) Albumin/Globulin Ratio 0.9 (1.0-1.7) Allergies: Coded Allergies: No Known Drug Allergies (Unverified , 09/02/16) Medications: Current Medications Medications (Trade) Dose Ordered Sig/Roel Route PRN Reason Start Time Stop Time Status Last Admin Dose Admin Fentanyl Citrate 25 mcg 25 mcg PRN Q15MIN PRN IV PAIN GREATER THAN 3/10 09/02/16 13:00 09/02/16 16:50 DC 09/02/16 14:52 Sodium Chloride (Iv Sodium Chloride 0.9% 1000ml Bag) 1,000 ml @ 1,000 mls/hr Q1H IV 09/02/16 13:00 09/02/16 13:59 DC 09/02/16 13:12 Ondansetron HCl 4 mg 4 mg 1X ONCE IV 09/02/16 13:00 09/02/16 13:05 DC 09/02/16 13:12 Sodium Chloride 1,000 ml @ 1,000 mls/hr 1X ONCE IV 09/02/16 13:45 09/02/16 14:44 DC 09/02/16 14:08 Sodium Chloride (Iv Sodium Chloride 0.9% 1000ml Bag) 1,000 ml @ 1,000 mls/hr 1X ONCE IV 09/02/16 16:00 09/02/16 16:59 DC 09/02/16 16:06 Fentanyl Citrate 50 mcg 50 mcg PRN Q1HR PRN IV PAIN 09/02/16 16:15 09/04/16 23:59 09/02/16 17:21 Sodium Chloride (Iv Sodium Chloride 0.9% 1000ml Bag) 1,000 ml @ 100 mls/hr Q10H IV 09/02/16 16:06 09/03/16 16:05 09/03/16 00:24 Metronidazole (Flagyl) 500 mg Q8HRS PO 09/02/16 17:00 09/03/16 05:30 Morphine Sulfate 4 mg PRN Q2HR PRN IV pain 09/02/16 17:00 09/03/16 08:40 Oxycodone/ Acetaminophen (Percocet 7.5/ 325) 1 tab PRN Q4HRS PRN PO pain 09/02/16 17:00 09/03/16 00:23 Multi-Ingredient Mouthwash/Gargle (Gi Cocktail Single Dose) 15 ml 1X ONCE SWSW 09/02/16 17:00 09/02/16 17:01 DC 09/02/16 17:21 Sucralfate (Carafate) 1 gm BID PO 2/8/17 21:00 09/03/16 08:39 Pantoprazole Sodium (Protonix Vial) 40 mg 1X ONCE IVP 09/02/16 17:00 09/02/16 17:01 DC 09/02/16 17:21 Pantoprazole Sodium 40 mg 40 mg BIDAC PO 09/03/16 07:30 09/03/16 08:39 Potassium Chloride (KCl Premix 10meq) 100 ml @ 100 mls/hr Q1H IV 09/02/16 17:00 09/02/16 18:59 DC 09/02/16 19:56 Potassium Chloride (Klor-Con) 20 meq 1X ONCE PO 09/02/16 17:00 09/02/16 17:01 DC 09/02/16 18:20 Enoxaparin Sodium 40 mg 40 mg Q24H SQ 09/02/16 18:00 09/02/16 18:31 Sodium Chloride (Iv Sodium Chloride 0.9% 1000ml Bag) 1,000 ml @ 1,000 mls/hr 1X ONCE IV 09/02/16 23:00 09/02/16 23:59 DC 09/02/16 23:03 Ciprofloxacin (Cipro) 500 mg BID PO 09/02/16 23:30 09/03/16 08:39 Vancomycin HCl 125 mg [id number] PO 09/03/16 09:00 09/03/16 08:39 Imaging: Imaging: CXR 09/02/16 Impression: No acute radiographic abnormality is seen. PE: GEN: NAD, overweight HEENT: Atraumatic, PERRL LUNGS: CTAB anteriorly HEART: RRR ABD BS+, diffusely tender - more sore from LLQ to periumbilical region EXTREMITY: No edema SKIN: No rashes, no jaundice NEURO/PSYCH: A & O 3 A/P: A/P: Abdominal pain w/ diarrhea -unemployed w/ chronic GI issues -chronic pain (since 2013), worse x 2 weeks w/ activity -associated w/ severe diarrhea -h/o abnormal celiac serology, reports normal SB bx N/v (mostly nausea w/ abd cramping) -one episode ?hematemesis 2 days ago H/o colon cancer s/p resection -last 'scopes in 12/2015 as above H/o C Diff -says previously treated w/ Flagyl and vanc Leukocytosis -improving, ID consulted Dehydration -- Await additional labs. Other per Dr. Caba. MINERVA CHEEK Sep 03, 2016 09:56
[2016-09-03 10:37] LABS: PLT ESTIMATE ADEQUATE (ADEQUATE)
[2016-09-03 11:41] VITALS: BP 112/71
--- NOTE | 2016-09-03 12:13 | PDOC ---
PROGRESS NOTES Chief Complaint Chief Complaint 1. Acute Abdominal Pain w/ diarrhea 2. Metabolic gap acidosis 3. Leukocytosis 4. Sepsis 5. Vasomotor Nephropathy 6. Hematemesis 7. Dehydration 8. Vomiting 9. Hx of Colon Resection History of Present Illness History of Present Illness The pt was awaking sitting comfortably in bed on arrival to his room this AM. He denies any episodes of diarrhea this AM, but states that the crampy diffuse abdominal pain is still present. The pt did state today that he has had luck with Dilaudid in the past to help relieve the abdominal pain. At this time he stated that the morphine is not helping with the pain. The pt also admitted to some nausea in association with the pain but no new episodes of vomiting. DW RN- VSS; pt doing well at this time Vitals Vitals Vital Signs Date Time Temp Pulse Resp B/P Pulse Ox O2 Delivery O2 Flow Rate FiO2 09/03/16 11:45 Room Air 09/03/16 11:41 97.7 89 19 112/71 97 97.7 Physical Exam General: Alert, Oriented X3, Cooperative, No acute distress Heart: Regular rate, No murmurs Lungs: Clear, Other (no wheezes present) Abdomen: Soft (tender diffusely), Other (Tenderness to palpation in all 4 quadrants, Hyperactive Bowel Sounds) Extremities: No clubbing Skin: No rashes, Other (dry, poor turgor) Labs LABS Laboratory Tests Test 09/02/16 12:46 09/02/16 13:10 09/02/16 16:00 09/02/16 20:45 White Blood Count 46.8x10^3/uL (4.0-11.0) Red Blood Count 6.10x10^6/uL (4.30-5.70) Hemoglobin 18.1g/dL (13.0-17.5) Hematocrit 52.6% (39.0-53.0) Mean Corpuscular Volume 86fL (79-100) Mean Corpuscular Hemoglobin 30pg (25-35) Mean Corpuscular Hemoglobin Concent 35g/dL (31-37) Red Cell Distribution Width 12.9% (11.5-14.5) Platelet Count 596x10^3/uL (140-400) Neutrophils (%) (Auto) 87% (31-73) Lymphocytes (%) (Auto) 10% (24-48) Monocytes (%) (Auto) 4% (0-9) Eosinophils (%) (Auto) 0% (0-3) Basophils (%) (Auto) 0% (0-3) Neutrophils # (Auto) 40.6x10^3uL (1.8-7.7) Lymphocytes # (Auto) 4.5x10^3/uL (1.0-4.8) Monocytes # (Auto) 1.7x10^3/uL (0.0-1.1) Eosinophils # (Auto) 0.0x10^3/uL (0.0-0.7) Basophils # (Auto) 0.1x10^3/uL (0.0-0.2) Segmented Neutrophils % 75% (35-66) Band Neutrophils % 6% (0-9) Lymphocytes % 16% (24-48) Monocytes % 3% (0-10) Toxic Granulation Slight Platelet Estimate Adequate (ADEQUATE) Sodium Level 139mmol/L (136-145) Potassium Level 3.5mmol/L (3.5-5.1) Chloride Level 101mmol/L (98-107) Carbon Dioxide Level 17mmol/L (21-32) Anion Gap 21 (6-14) Blood Urea Nitrogen 16mg/dL (8-26) Creatinine 1.3mg/dL (0.7-1.3) Estimated GFR (Cockcroft-Gault) 62.5 BUN/Creatinine Ratio 12 (6-20) Glucose Level 239mg/dL (70-99) Calcium Level 9.8mg/dL (8.5-10.1) Total Bilirubin 0.7mg/dL (0.2-1.0) Aspartate Amino Transf (AST/SGOT) 38U/L (15-37) Alanine Aminotransferase (ALT/SGPT) 88U/L (16-63) Alkaline Phosphatase 113U/L (46-116) Total Protein 9.0g/dL (6.4-8.2) Albumin 4.2g/dL (3.4-5.0) Albumin/Globulin Ratio 0.9 (1.0-1.7) Lipase 124U/L (73-393) Urine Collection Type Unknown Urine Color [place] Urine Clarity Clear Urine pH 6.0 Urine Specific [place] >=1.030 Urine Protein 100mg/dL (NEG-TRACE) Urine Glucose (UA) 100mg/dL (NEG) Urine Ketones (Stick) 15mg/dL (NEG) Urine Blood Negative (NEG) Urine Nitrite Negative (NEG) Urine Bilirubin Negative (NEG) Urine Urobilinogen Dipstick 0.2mg/dL (0.2 mg/dL) Urine Leukocyte Esterase Negative (NEG) Urine RBC 0/HPF (0-2) Urine WBC 0/HPF (0-4) Urine Bacteria 0/HPF (0-FEW) Urine Hyaline Casts Many/HPF Urine Mucus Marked/LPF Urine Opiates Screen Pos (NEG) Urine Methadone Screen Neg (NEG) Urine Barbiturates Neg (NEG) Urine Phencyclidine Screen Neg (NEG) Urine Amphetamine/Methamphetamine Neg (NEG) Urine Benzodiazepines Screen Neg (NEG) Urine Cocaine Screen Neg (NEG) Urine Cannabinoids Screen Neg (NEG) Urine Ethyl Alcohol Neg (NEG) Lactic Acid Level 2.6mmol/L (0.4-2.0) Glucose (Fingerstick) 124mg/dL (70-99) Test 09/02/16 20:55 09/02/16 23:50 09/03/16 06:45 09/03/16 07:55 Lactic Acid Level 3.0mmol/L (0.4-2.0) 1.5mmol/L (0.4-2.0) Sodium Level 141mmol/L (136-145) Potassium Level 3.4mmol/L (3.5-5.1) Chloride Level 109mmol/L (98-107) Carbon Dioxide Level 24mmol/L (21-32) Anion Gap 8 (6-14) Blood Urea Nitrogen 11mg/dL (8-26) Creatinine 0.8mg/dL (0.7-1.3) Estimated GFR (Cockcroft-Gault) 109.4 Glucose Level 100mg/dL (70-99) Calcium Level 8.2mg/dL (8.5-10.1) White Blood Count 28.6x10^3/uL (4.0-11.0) Red Blood Count 4.66x10^6/uL (4.30-5.70) Hemoglobin 13.7g/dL (13.0-17.5) Hematocrit 41.0% (39.0-53.0) Mean Corpuscular Volume 88fL (79-100) Mean Corpuscular Hemoglobin 29pg (25-35) Mean Corpuscular Hemoglobin Concent 33g/dL (31-37) Red Cell Distribution Width 12.7% (11.5-14.5) Platelet Count 328x10^3/uL (140-400) Neutrophils (%) (Auto) 74% (31-73) Lymphocytes (%) (Auto) 21% (24-48) Monocytes (%) (Auto) 5% (0-9) Eosinophils (%) (Auto) 0% (0-3) Basophils (%) (Auto) 0% (0-3) Neutrophils # (Auto) 21.1x10^3uL (1.8-7.7) Lymphocytes # (Auto) 5.9x10^3/uL (1.0-4.8) Monocytes # (Auto) 1.5x10^3/uL (0.0-1.1) Eosinophils # (Auto) 0.0x10^3/uL (0.0-0.7) Basophils # (Auto) 0.1x10^3/uL (0.0-0.2) Segmented Neutrophils % 75% (35-66) Band Neutrophils % 1% (0-9) Lymphocytes % 20% (24-48) Monocytes % 4% (0-10) Platelet Estimate Adequate (ADEQUATE) Glucose (Fingerstick) 82mg/dL (70-99) Test 09/03/16 08:20 09/03/16 10:58 Sodium Level 142mmol/L (136-145) Potassium Level 3.2mmol/L (3.5-5.1) Chloride Level 110mmol/L (98-107) Carbon Dioxide Level 24mmol/L (21-32) Anion Gap 8 (6-14) Blood Urea Nitrogen 12mg/dL (8-26) Creatinine 0.8mg/dL (0.7-1.3) Estimated GFR (Cockcroft-Gault) 109.4 BUN/Creatinine Ratio 15 (6-20) Glucose Level 86mg/dL (70-99) Calcium Level 8.0mg/dL (8.5-10.1) Total Bilirubin 0.6mg/dL (0.2-1.0) Aspartate Amino Transf (AST/SGOT) 48U/L (15-37) Alanine Aminotransferase (ALT/SGPT) 66U/L (16-63) Alkaline Phosphatase 76U/L (46-116) Total Protein 6.2g/dL (6.4-8.2) Albumin 3.0g/dL (3.4-5.0) Albumin/Globulin Ratio 0.9 (1.0-1.7) Glucose (Fingerstick) 80mg/dL (70-99) Review of Systems Review of Systems Complaining of Abdominal Pain Complaining of Nausea All other ROS negative Assessment and Plan Assessmemt and Plan Problems Medical Problems: (1) Dehydration Status: Acute (2) Leukocytosis Status: Acute 1. Acute Abdominal Pain w/ diarrhea 2. Metabolic gap acidosis 3. Leukocytosis 4. Sepsis 5. Vasomotor Nephropathy 6. Hematemesis 7. Dehydration 8. Vomiting 9. Hx of Colon Resection 10. Hx of C. Difficile infection Plan: - Will Continue the Vancomycin, Flagyl, and PO Cipro at this time for possible C. Diff - Leukocytosis improving - Awaiting Stool Sample Results to confirm C. Diff - ID Consulted: await recommendations - GI Consulted- appreciate recommendations - Will continue the Carafate and PPI regimen started on admission - Zofran in place for Nausea prn - PT/OT to evaluated and treat - Will obtain new labs in AM - Labs today show Lactic Acid returned to normal - Continue Home Medications - Will continue Morphine Regimen for pain at this time; discussed effect of opiods on the gut and pt agreeable with plan at this time Problems: Comment Review of Relevant I have reviewed the following items zena (where applicable) has been applied. Labs Laboratory Tests Test 09/02/16 12:46 09/02/16 13:10 09/02/16 16:00 09/02/16 20:45 White Blood Count 46.8x10^3/uL (4.0-11.0) Red Blood Count 6.10x10^6/uL (4.30-5.70) Hemoglobin 18.1g/dL (13.0-17.5) Hematocrit 52.6% (39.0-53.0) Mean Corpuscular Volume 86fL (79-100) Mean Corpuscular Hemoglobin 30pg (25-35) Mean Corpuscular Hemoglobin Concent 35g/dL (31-37) Red Cell Distribution Width 12.9% (11.5-14.5) Platelet Count 596x10^3/uL (140-400) Neutrophils (%) (Auto) 87% (31-73) Lymphocytes (%) (Auto) 10% (24-48) Monocytes (%) (Auto) 4% (0-9) Eosinophils (%) (Auto) 0% (0-3) Basophils (%) (Auto) 0% (0-3) Neutrophils # (Auto) 40.6x10^3uL (1.8-7.7) Lymphocytes # (Auto) 4.5x10^3/uL (1.0-4.8) Monocytes # (Auto) 1.7x10^3/uL (0.0-1.1) Eosinophils # (Auto) 0.0x10^3/uL (0.0-0.7) Basophils # (Auto) 0.1x10^3/uL (0.0-0.2) Segmented Neutrophils % 75% (35-66) Band Neutrophils % 6% (0-9) Lymphocytes % 16% (24-48) Monocytes % 3% (0-10) Toxic Granulation Slight Platelet Estimate Adequate (ADEQUATE) Sodium Level 139mmol/L (136-145) Potassium Level 3.5mmol/L (3.5-5.1) Chloride Level 101mmol/L (98-107) Carbon Dioxide Level 17mmol/L (21-32) Anion Gap 21 (6-14) Blood Urea Nitrogen 16mg/dL (8-26) Creatinine 1.3mg/dL (0.7-1.3) Estimated GFR (Cockcroft-Gault) 62.5 BUN/Creatinine Ratio 12 (6-20) Glucose Level 239mg/dL (70-99) Calcium Level 9.8mg/dL (8.5-10.1) Total Bilirubin 0.7mg/dL (0.2-1.0) Aspartate Amino Transf (AST/SGOT) 38U/L (15-37) Alanine Aminotransferase (ALT/SGPT) 88U/L (16-63) Alkaline Phosphatase 113U/L (46-116) Total Protein 9.0g/dL (6.4-8.2) Albumin 4.2g/dL (3.4-5.0) Albumin/Globulin Ratio 0.9 (1.0-1.7) Lipase 124U/L (73-393) Urine Collection Type Unknown Urine Color [place] Urine Clarity Clear Urine pH 6.0 Urine Specific [place] >=1.030 Urine Protein 100mg/dL (NEG-TRACE) Urine Glucose (UA) 100mg/dL (NEG) Urine Ketones (Stick) 15mg/dL (NEG) Urine Blood Negative (NEG) Urine Nitrite Negative (NEG) Urine Bilirubin Negative (NEG) Urine Urobilinogen Dipstick 0.2mg/dL (0.2 mg/dL) Urine Leukocyte Esterase Negative (NEG) Urine RBC 0/HPF (0-2) Urine WBC 0/HPF (0-4) Urine Bacteria 0/HPF (0-FEW) Urine Hyaline Casts Many/HPF Urine Mucus Marked/LPF Urine Opiates Screen Pos (NEG) Urine Methadone Screen Neg (NEG) Urine Barbiturates Neg (NEG) Urine Phencyclidine Screen Neg (NEG) Urine Amphetamine/Methamphetamine Neg (NEG) Urine Benzodiazepines Screen Neg (NEG) Urine Cocaine Screen Neg (NEG) Urine Cannabinoids Screen Neg (NEG) Urine Ethyl Alcohol Neg (NEG) Lactic Acid Level 2.6mmol/L (0.4-2.0) Glucose (Fingerstick) 124mg/dL (70-99) Test 09/02/16 20:55 09/02/16 23:50 09/03/16 06:45 09/03/16 07:55 Lactic Acid Level 3.0mmol/L (0.4-2.0) 1.5mmol/L (0.4-2.0) Sodium Level 141mmol/L (136-145) Potassium Level 3.4mmol/L (3.5-5.1) Chloride Level 109mmol/L (98-107) Carbon Dioxide Level 24mmol/L (21-32) Anion Gap 8 (6-14) Blood Urea Nitrogen 11mg/dL (8-26) Creatinine 0.8mg/dL (0.7-1.3) Estimated GFR (Cockcroft-Gault) 109.4 Glucose Level 100mg/dL (70-99) Calcium Level 8.2mg/dL (8.5-10.1) White Blood Count 28.6x10^3/uL (4.0-11.0) Red Blood Count 4.66x10^6/uL (4.30-5.70) Hemoglobin 13.7g/dL (13.0-17.5) Hematocrit 41.0% (39.0-53.0) Mean Corpuscular Volume 88fL (79-100) Mean Corpuscular Hemoglobin 29pg (25-35) Mean Corpuscular Hemoglobin Concent 33g/dL (31-37) Red Cell Distribution Width 12.7% (11.5-14.5) Platelet Count 328x10^3/uL (140-400) Neutrophils (%) (Auto) 74% (31-73) Lymphocytes (%) (Auto) 21% (24-48) Monocytes (%) (Auto) 5% (0-9) Eosinophils (%) (Auto) 0% (0-3) Basophils (%) (Auto) 0% (0-3) Neutrophils # (Auto) 21.1x10^3uL (1.8-7.7) Lymphocytes # (Auto) 5.9x10^3/uL (1.0-4.8) Monocytes # (Auto) 1.5x10^3/uL (0.0-1.1) Eosinophils # (Auto) 0.0x10^3/uL (0.0-0.7) Basophils # (Auto) 0.1x10^3/uL (0.0-0.2) Segmented Neutrophils % 75% (35-66) Band Neutrophils % 1% (0-9) Lymphocytes % 20% (24-48) Monocytes % 4% (0-10) Platelet Estimate Adequate (ADEQUATE) Glucose (Fingerstick) 82mg/dL (70-99) Test 09/03/16 08:20 09/03/16 10:58 Sodium Level 142mmol/L (136-145) Potassium Level 3.2mmol/L (3.5-5.1) Chloride Level 110mmol/L (98-107) Carbon Dioxide Level 24mmol/L (21-32) Anion Gap 8 (6-14) Blood Urea Nitrogen 12mg/dL (8-26) Creatinine 0.8mg/dL (0.7-1.3) Estimated GFR (Cockcroft-Gault) 109.4 BUN/Creatinine Ratio 15 (6-20) Glucose Level 86mg/dL (70-99) Calcium Level 8.0mg/dL (8.5-10.1) Total Bilirubin 0.6mg/dL (0.2-1.0) Aspartate Amino Transf (AST/SGOT) 48U/L (15-37) Alanine Aminotransferase (ALT/SGPT) 66U/L (16-63) Alkaline Phosphatase 76U/L (46-116) Total Protein 6.2g/dL (6.4-8.2) Albumin 3.0g/dL (3.4-5.0) Albumin/Globulin Ratio 0.9 (1.0-1.7) Glucose (Fingerstick) 80mg/dL (70-99) Laboratory Tests Test 09/02/16 12:46 09/02/16 13:10 09/02/16 16:00 09/02/16 20:45 White Blood Count 46.8x10^3/uL (4.0-11.0) Red Blood Count 6.10x10^6/uL (4.30-5.70) Hemoglobin 18.1g/dL (13.0-17.5) Hematocrit 52.6% (39.0-53.0) Mean Corpuscular Volume 86fL (79-100) Mean Corpuscular Hemoglobin 30pg (25-35) Mean Corpuscular Hemoglobin Concent 35g/dL (31-37) Red Cell Distribution Width 12.9% (11.5-14.5) Platelet Count 596x10^3/uL (140-400) Neutrophils (%) (Auto) 87% (31-73) Lymphocytes (%) (Auto) 10% (24-48) Monocytes (%) (Auto) 4% (0-9) Eosinophils (%) (Auto) 0% (0-3) Basophils (%) (Auto) 0% (0-3) Neutrophils # (Auto) 40.6x10^3uL (1.8-7.7) Lymphocytes # (Auto) 4.5x10^3/uL (1.0-4.8) Monocytes # (Auto) 1.7x10^3/uL (0.0-1.1) Eosinophils # (Auto) 0.0x10^3/uL (0.0-0.7) Basophils # (Auto) 0.1x10^3/uL (0.0-0.2) Segmented Neutrophils % 75% (35-66) Band Neutrophils % 6% (0-9) Lymphocytes % 16% (24-48) Monocytes % 3% (0-10) Toxic Granulation Slight Platelet Estimate Adequate (ADEQUATE) Sodium Level 139mmol/L (136-145) Potassium Level 3.5mmol/L (3.5-5.1) Chloride Level 101mmol/L (98-107) Carbon Dioxide Level 17mmol/L (21-32) Anion Gap 21 (6-14) Blood Urea Nitrogen 16mg/dL (8-26) Creatinine 1.3mg/dL (0.7-1.3) Estimated GFR (Cockcroft-Gault) 62.5 BUN/Creatinine Ratio 12 (6-20) Glucose Level 239mg/dL (70-99) Calcium Level 9.8mg/dL (8.5-10.1) Total Bilirubin 0.7mg/dL (0.2-1.0) Aspartate Amino Transf (AST/SGOT) 38U/L (15-37) Alanine Aminotransferase (ALT/SGPT) 88U/L (16-63) Alkaline Phosphatase 113U/L (46-116) Total Protein 9.0g/dL (6.4-8.2) Albumin 4.2g/dL (3.4-5.0) Albumin/Globulin Ratio 0.9 (1.0-1.7) Lipase 124U/L (73-393) Urine Collection Type Unknown Urine Color [place] Urine Clarity Clear Urine pH 6.0 Urine Specific [place] >=1.030 Urine Protein 100mg/dL (NEG-TRACE) Urine Glucose (UA) 100mg/dL (NEG) Urine Ketones (Stick) 15mg/dL (NEG) Urine Blood Negative (NEG) Urine Nitrite Negative (NEG) Urine Bilirubin Negative (NEG) Urine Urobilinogen Dipstick 0.2mg/dL (0.2 mg/dL) Urine Leukocyte Esterase Negative (NEG) Urine RBC 0/HPF (0-2) Urine WBC 0/HPF (0-4) Urine Bacteria 0/HPF (0-FEW) Urine Hyaline Casts Many/HPF Urine Mucus Marked/LPF Urine Opiates Screen Pos (NEG) Urine Methadone Screen Neg (NEG) Urine Barbiturates Neg (NEG) Urine Phencyclidine Screen Neg (NEG) Urine Amphetamine/Methamphetamine Neg (NEG) Urine Benzodiazepines Screen Neg (NEG) Urine Cocaine Screen Neg (NEG) Urine Cannabinoids Screen Neg (NEG) Urine Ethyl Alcohol Neg (NEG) Lactic Acid Level 2.6mmol/L (0.4-2.0) Glucose (Fingerstick) 124mg/dL (70-99) Test 09/02/16 20:55 09/02/16 23:50 09/03/16 06:45 09/03/16 07:55 Lactic Acid Level 3.0mmol/L (0.4-2.0) 1.5mmol/L (0.4-2.0) Sodium Level 141mmol/L (136-145) Potassium Level 3.4mmol/L (3.5-5.1) Chloride Level 109mmol/L (98-107) Carbon Dioxide Level 24mmol/L (21-32) Anion Gap 8 (6-14) Blood Urea Nitrogen 11mg/dL (8-26) Creatinine 0.8mg/dL (0.7-1.3) Estimated GFR (Cockcroft-Gault) 109.4 Glucose Level 100mg/dL (70-99) Calcium Level 8.2mg/dL (8.5-10.1) White Blood Count 28.6x10^3/uL (4.0-11.0) Red Blood Count 4.66x10^6/uL (4.30-5.70) Hemoglobin 13.7g/dL (13.0-17.5) Hematocrit 41.0% (39.0-53.0) Mean Corpuscular Volume 88fL (79-100) Mean Corpuscular Hemoglobin 29pg (25-35) Mean Corpuscular Hemoglobin Concent 33g/dL (31-37) Red Cell Distribution Width 12.7% (11.5-14.5) Platelet Count 328x10^3/uL (140-400) Neutrophils (%) (Auto) 74% (31-73) Lymphocytes (%) (Auto) 21% (24-48) Monocytes (%) (Auto) 5% (0-9) Eosinophils (%) (Auto) 0% (0-3) Basophils (%) (Auto) 0% (0-3) Neutrophils # (Auto) 21.1x10^3uL (1.8-7.7) Lymphocytes # (Auto) 5.9x10^3/uL (1.0-4.8) Monocytes # (Auto) 1.5x10^3/uL (0.0-1.1) Eosinophils # (Auto) 0.0x10^3/uL (0.0-0.7) Basophils # (Auto) 0.1x10^3/uL (0.0-0.2) Segmented Neutrophils % 75% (35-66) Band Neutrophils % 1% (0-9) Lymphocytes % 20% (24-48) Monocytes % 4% (0-10) Platelet Estimate Adequate (ADEQUATE) Glucose (Fingerstick) 82mg/dL (70-99) Test 09/03/16 08:20 09/03/16 10:58 Sodium Level 142mmol/L (136-145) Potassium Level 3.2mmol/L (3.5-5.1) Chloride Level 110mmol/L (98-107) Carbon Dioxide Level 24mmol/L (21-32) Anion Gap 8 (6-14) Blood Urea Nitrogen 12mg/dL (8-26) Creatinine 0.8mg/dL (0.7-1.3) Estimated GFR (Cockcroft-Gault) 109.4 BUN/Creatinine Ratio 15 (6-20) Glucose Level 86mg/dL (70-99) Calcium Level 8.0mg/dL (8.5-10.1) Total Bilirubin 0.6mg/dL (0.2-1.0) Aspartate Amino Transf (AST/SGOT) 48U/L (15-37) Alanine Aminotransferase (ALT/SGPT) 66U/L (16-63) Alkaline Phosphatase 76U/L (46-116) Total Protein 6.2g/dL (6.4-8.2) Albumin 3.0g/dL (3.4-5.0) Albumin/Globulin Ratio 0.9 (1.0-1.7) Glucose (Fingerstick) 80mg/dL (70-99) Microbiology 09/02/16 Fecal Leukocyte Stain - Final, Complete Medications Current Medications Fentanyl Citrate 25 mcg 25 mcg PRN Q15MIN PRN IV PAIN GREATER THAN 3/10 Last administered on 09/02/16t 14:52; Start 09/02/16 at 13:00; Stop 09/02/16 at 16:50; Status DC Sodium Chloride (Iv Sodium Chloride 0.9% 1000ml Bag) 1,000 ml @ 1,000 mls/hr Q1H IV Last administered on 09/02/16 13:12; Start 09/02/16 at 13:00; Stop at 13:59; Status DC Ondansetron HCl 4 mg 4 mg 1X ONCE IV Last administered on 09/02/16 13:12; Start 09/02/16 at 13:00; Stop 09/02/16 at 13:05; Status DC Sodium Chloride 1,000 ml @ 1,000 mls/hr 1X ONCE IV Last administered on 14:08; Start 09/02/16 at 13:45; Stop 09/02/16 at 14:44; Status DC Sodium Chloride (Iv Sodium Chloride 0.9% 1000ml Bag) 1,000 ml @ 1,000 mls/hr 1X ONCE IV Last administered on 09/02/16 16:06; Start 09/02/16 at 16:00; Stop 09/02/16 at 16:59; Status DC Ondansetron HCl (Zofran) 4 mg PRN Q8HRS PRN IV NAUSEA/VOMITING; Start 09/02/16 at 16:15; Stop 09/03/16 at 16:14 Fentanyl Citrate 50 mcg 50 mcg PRN Q1HR PRN IV PAIN Last administered on 17:21; Start 09/02/16 at 16:15; Stop 09/04/16 at 23:59 Sodium Chloride (Iv Sodium Chloride 0.9% 1000ml Bag) 1,000 ml @ 100 mls/hr Q10H IV Last administered on 09/03/16 11:47; Start 09/02/16 at 16:06; Stop at 16:05 Metronidazole (Flagyl) 500 mg Q8HRS PO Last administered on 09/03/16 05:30; Start 09/02/16 at 17:00 Morphine Sulfate 4 mg PRN Q2HR PRN IV pain Last administered on 09/03/16 11:45 ; Start 09/02/16 at 17:00 Oxycodone/ Acetaminophen (Percocet 7.5/ 325) 1 tab PRN Q4HRS PRN PO pain Last administered on 09/03/16 11:45; Start 09/02/16 at 17:00 Multi-Ingredient Mouthwash/Gargle (Gi Cocktail Single Dose) 15 ml 1X ONCE SWSW Last administered on 09/02/16 17:21; Start 09/02/16 at 17:00; Stop 09/02/16 at 17:01; Status DC Sucralfate (Carafate) 1 gm BID PO Last administered on 09/03/16 08:39; Start at 21:00 Pantoprazole Sodium (Protonix Vial) 40 mg 1X ONCE IVP Last administered on 09/02 17:21; Start 09/02/16 at 17:00; Stop 09/02/16 at 17:01; Status DC Pantoprazole Sodium (Protonix) 40 mg BIDAC PO Last administered on 09/03/16 08: 39; Start 09/03/16 at 07:30 Insulin Aspart (Novolog) 0-7 UNITS TIDWMEALS SQ ; Start 09/02/16 at 17:30 Dextrose 12.5 gm 12.5 gm PRN Q15MIN PRN IV SEE COMMENTS; Start 09/02/16 at 17:00 Potassium Chloride (KCl Premix 10meq) 100 ml @ 100 mls/hr Q1H IV Last administered on 09/02/16 19:56; Start 09/02/16 at 17:00; Stop 09/02/16 at 18:59; Status DC Potassium Chloride (Klor-Con) 20 meq 1X ONCE PO Last administered on 09/02/16 18:20; Start 09/02/16 at 17:00; Stop 09/02/16 at 17:01; Status DC Enoxaparin Sodium (Lovenox Per Pharmacy Prophylaxis Dosing) 1 each PRN DAILY PRN MC SEE COMMENTS; Start 09/02/16 at 17:00 Enoxaparin Sodium 40 mg 40 mg Q24H SQ Last administered on 09/02/16 18:31; Start 09/02/16 at 18:00 Sodium Chloride (Iv Sodium Chloride 0.9% 1000ml Bag) 1,000 ml @ 1,000 mls/hr 1X ONCE IV Last administered on 09/02/16 23:03; Start 09/02/16 at 23:00; Stop 09/02/16 at 23:59; Status DC Ciprofloxacin (Cipro) 500 mg BID PO Last administered on 09/03/16 08:39; Start 09/02/16 at 23:30 Vancomycin HCl 125 mg [id number] PO Last administered on 09/03/16 08:39; Start 09/03/16 at 09:00 Active Scripts Active Reported Zolpidem Tartrate 10 Mg Tablet 1 Tab PO QHS Vitals/I & O Vital Sign - Last 24 Hours 09/02/16 09/02/16 09/02/16 09/02/16 12:40 13:01 13:13 13:31 Temp 98.4 98.4 Pulse 134 120 122 Resp 20 18 20 20 B/P 183/93 162/86 154/110 Pulse Ox 97 94 97 96 O2 Delivery Room Air Room Air Room Air Room Air 09/02/16 09/02/16 09/02/16 09/02/16 13:48 14:01 14:10 15:01 Pulse 118 112 Resp 18 18 18 16 B/P 136/90 141/92 Pulse Ox 95 94 95 97 O2 Delivery Room Air 09/02/16 09/02/16 09/02/16 09/02/16 15:31 16:01 16:31 17:01 Pulse 108 114 110 118 Resp 18 18 20 24 B/P 150/87 156/97 133/96 151/91 Pulse Ox 94 94 96 95 O2 Delivery Room Air 09/02/16 09/02/16 09/02/16 09/02/16 17:21 17:31 18:01 19:00 Temp 97.7 97.7 Pulse 114 108 Resp 16 20 17 B/P 117/88 117/74 113/90 Pulse Ox 94 94 94 90 O2 Delivery Room Air Room Air 09/02/16 09/02/16 09/02/16 09/02/16 19:30 20:00 20:55 22:34 Temp 96.2 96.2 Pulse 107 Resp 21 B/P 123/66 Pulse Ox 93 O2 Delivery Room Air Room Air Room Air Room Air 09/02/16 09/03/16 09/03/16 09/03/16 23:15 00:23 01:23 01:43 O2 Delivery Room Air Room Air Room Air Room Air 09/03/16 09/03/16 09/03/16 09/03/16 03:00 03:57 06:02 07:27 Temp 97.4 97.5 97.4 97.5 Pulse 108 93 Resp 20 B/P 151/67 124/70 Pulse Ox 94 96 O2 Delivery Room Air Room Air Room Air Room Air 09/03/16 09/03/16 09/03/16 09/03/16 08:40 09:24 11:41 11:45 Temp 97.7 97.7 Pulse 89 Resp 19 B/P 112/71 Pulse Ox 97 O2 Delivery Room Air Room Air Room Air Room Air 09/03/16 11:45 O2 Delivery Room Air Intake and Output 09/02/16 09/02/16 09/03/16 15:00 23:00 07:00 Intake Total 2000 ml 1000 ml 600 ml Balance 2000 ml 1000 ml 600 ml MARJAN VELASCO III DO Sep 03, 2016 12:13
--- NOTE | 2016-09-03 14:11 | PDOC ---
Infectious Disease Note Vital Sign Vital Signs Vital Signs Date Time Temp Pulse Resp B/P Pulse Ox O2 Delivery O2 Flow Rate FiO2 09/03/16 11:45 Room Air 09/03/16 11:41 97.7 89 19 112/71 97 97.7 Labs Lab Laboratory Tests Test 09/02/16 16:00 09/02/16 20:45 09/02/16 20:55 09/02/16 23:50 Lactic Acid Level 2.6mmol/L (0.4-2.0) 3.0mmol/L (0.4-2.0) Glucose (Fingerstick) 124mg/dL (70-99) Sodium Level 141mmol/L (136-145) Potassium Level 3.4mmol/L (3.5-5.1) Chloride Level 109mmol/L (98-107) Carbon Dioxide Level 24mmol/L (21-32) Anion Gap 8 (6-14) Blood Urea Nitrogen 11mg/dL (8-26) Creatinine 0.8mg/dL (0.7-1.3) Estimated GFR (Cockcroft-Gault) 109.4 Glucose Level 100mg/dL (70-99) Calcium Level 8.2mg/dL (8.5-10.1) Test 09/03/16 06:45 09/03/16 07:55 09/03/16 08:20 09/03/16 10:58 White Blood Count 28.6x10^3/uL (4.0-11.0) Red Blood Count 4.66x10^6/uL (4.30-5.70) Hemoglobin 13.7g/dL (13.0-17.5) Hematocrit 41.0% (39.0-53.0) Mean Corpuscular Volume 88fL (79-100) Mean Corpuscular Hemoglobin 29pg (25-35) Mean Corpuscular Hemoglobin Concent 33g/dL (31-37) Red Cell Distribution Width 12.7% (11.5-14.5) Platelet Count 328x10^3/uL (140-400) Neutrophils (%) (Auto) 74% (31-73) Lymphocytes (%) (Auto) 21% (24-48) Monocytes (%) (Auto) 5% (0-9) Eosinophils (%) (Auto) 0% (0-3) Basophils (%) (Auto) 0% (0-3) Neutrophils # (Auto) 21.1x10^3uL (1.8-7.7) Lymphocytes # (Auto) 5.9x10^3/uL (1.0-4.8) Monocytes # (Auto) 1.5x10^3/uL (0.0-1.1) Eosinophils # (Auto) 0.0x10^3/uL (0.0-0.7) Basophils # (Auto) 0.1x10^3/uL (0.0-0.2) Segmented Neutrophils % 75% (35-66) Band Neutrophils % 1% (0-9) Lymphocytes % 20% (24-48) Monocytes % 4% (0-10) Platelet Estimate Adequate (ADEQUATE) Lactic Acid Level 1.5mmol/L (0.4-2.0) Glucose (Fingerstick) 82mg/dL (70-99) 80mg/dL (70-99) Sodium Level 142mmol/L (136-145) Potassium Level 3.2mmol/L (3.5-5.1) Chloride Level 110mmol/L (98-107) Carbon Dioxide Level 24mmol/L (21-32) Anion Gap 8 (6-14) Blood Urea Nitrogen 12mg/dL (8-26) Creatinine 0.8mg/dL (0.7-1.3) Estimated GFR (Cockcroft-Gault) 109.4 BUN/Creatinine Ratio 15 (6-20) Glucose Level 86mg/dL (70-99) Calcium Level 8.0mg/dL (8.5-10.1) Total Bilirubin 0.6mg/dL (0.2-1.0) Aspartate Amino Transf (AST/SGOT) 48U/L (15-37) Alanine Aminotransferase (ALT/SGPT) 66U/L (16-63) Alkaline Phosphatase 76U/L (46-116) Total Protein 6.2g/dL (6.4-8.2) Albumin 3.0g/dL (3.4-5.0) Albumin/Globulin Ratio 0.9 (1.0-1.7) Micro FECAL WBC,GRAM STAIN Final WBCS FEW Objective Assessment Leukocytosis Diarrhea Elevated LFTs, improved from 09/01 [facility]. Fatty liver on CT abd/pelvis. h/o c. diff h/o colon cancer s/p resection, 2010 Obesity Plan Plan of Care initially on cipro and flagyl, but since discontinued per GI Continue po vanc Await stool cultures & C. diff f/u labs Supportive care Thank you [phone] Attending Co-Sign Attending Co-Sign The patient was seen and interviewed as well as examined at the bedside. The chart was reviewed. The case was discussed. Agree with the plan of care. ODALYS KIRBY APRN Sep 03, 2016 13:46 RUFINO VICTOR MD Sep 03, 2016 14:12
[2016-09-03 15:00] VITALS: BP 102/71
[2016-09-03] MEDS: ENOXAPARIN 40 MG/0.4 ML DISP.SYRIN. SQ SCH (17:11)
[2016-09-03 19:46] VITALS: BP 108/72
[2016-09-03 23:19] VITALS: BP 114/71
[2016-09-03] MEDS: ZOLPIDEM 5 MG TABLET. PO PRN (23:21)
[2016-09-03] MEDS: HYDROMORPHONE 2 MG/ML VIAL. IV PRN (23:22)
[2016-09-04] MEDS: HYDROMORPHONE 2 MG/ML VIAL. IV PRN ×8 (02:39→22:21)
[2016-09-04 03:00] VITALS: BP 121/74
[2016-09-04] MEDS: HYDROCORTISONE SOD SUCC/PF 100 MG/2 ML VIAL. IV SCH ×3 (05:12→20:24)
[2016-09-04 05:36] LABS: BASO # 0.1 x10^3/uL (0.0-0.2); BASO % 1 % (0-3); EOS % 1 % (0-3); HEMATOCRIT 40.6 % (39.0-53.0); HEMOGLOBIN 13.8 g/dL (13.0-17.5); LYMPH # 4.7 x10^3/uL (1.0-4.8); LYMPH % 36 % (24-48); MEAN CORPUSCULAR HEMOGLOBIN 30 pg (25-35); MEAN CORPUSCULAR HGB CONC 34 g/dL (31-37); MEAN CORPUSCULAR VOLUME 87 fL (79-100); MONO % 7 % (0-9); NEUT % 55 % (31-73); PLATELET COUNT 256 x10^3/uL (140-400); RED BLOOD COUNT 4.65 x10^6/uL (4.30-5.70); WHITE BLOOD COUNT 13.1 x10^3/uL (4.0-11.0)
[2016-09-04 05:53] LABS: CALCIUM 8.5 mg/dL (8.5-10.1); CREATININE 0.8 mg/dL (0.7-1.3); GFR 109.4
[2016-09-04 07:00] VITALS: BP 132/87
[2016-09-04] MEDS: INSULIN ASPART 300 UNITS/3 ML INSULN.PEN SQ SCH ×3 (08:00→16:55)
[2016-09-04] MEDS: VANCOMYCIN 125 MG/2.5 ML ORAL SOLUTION. PO SCH (08:27)
[2016-09-04] MEDS: PANTOPRAZOLE 40 MG TABLET. PO SCH ×2 (08:27→16:52)
[2016-09-04] MEDS: SUCRALFATE 1 GM TABLET. PO SCH ×2 (08:27→20:24)
--- NOTE | 2016-09-04 10:59 | PDOC ---
Infectious Disease Note Subjective Subjective Still sweats and abd pain. Less diarrhea ROS ROS GEN: Denies fevers HEENT: Denies blurred vision, sore throat CV: Denies chest pain RESP: Denies shortness of air, cough GI: Denies n/v NEURO: Denies confusion, dizziness MSK: Denies weakness, joint pain/swelling Vital Sign Vital Signs Vital Signs Date Time Temp Pulse Resp B/P Pulse Ox O2 Delivery O2 Flow Rate FiO2 09/04/16 09:32 14 98 Room Air 09/04/16 07:00 97.9 89 132/87 97.9 Physical Exam PHYSICAL EXAM GENERAL: NAD, Alert, coop HEENT: PERRL, OC/OP - clear NECK: Supple, no JVD, no LN LUNGS: Clear HEART: S1S2, no gallop, no murmur ABD: Soft, NT, no organomegaly, no rebound. Obese and mild tender EXT: No edema, no cyanosis EDUCATION PROGRAM ASSOCIATE: Alert, oriented x 3, no focal neurologic deficit SKIN: No rash IV: ok Labs Lab Laboratory Tests Test 09/03/16 10:58 09/03/16 16:13 09/03/16 22:05 09/03/16 22:10 Glucose (Fingerstick) 80mg/dL (70-99) 71mg/dL (70-99) 15mg/dL (70-99) 93mg/dL (70-99) Test 09/04/16 04:25 09/04/16 07:22 White Blood Count 13.1x10^3/uL (4.0-11.0) Red Blood Count 4.65x10^6/uL (4.30-5.70) Hemoglobin 13.8g/dL (13.0-17.5) Hematocrit 40.6% (39.0-53.0) Mean Corpuscular Volume 87fL (79-100) Mean Corpuscular Hemoglobin 30pg (25-35) Mean Corpuscular Hemoglobin Concent 34g/dL (31-37) Red Cell Distribution Width 13.0% (11.5-14.5) Platelet Count 256x10^3/uL (140-400) Neutrophils (%) (Auto) 55% (31-73) Lymphocytes (%) (Auto) 36% (24-48) Monocytes (%) (Auto) 7% (0-9) Eosinophils (%) (Auto) 1% (0-3) Basophils (%) (Auto) 1% (0-3) Neutrophils # (Auto) 7.2x10^3uL (1.8-7.7) Lymphocytes # (Auto) 4.7x10^3/uL (1.0-4.8) Monocytes # (Auto) 0.9x10^3/uL (0.0-1.1) Eosinophils # (Auto) 0.2x10^3/uL (0.0-0.7) Basophils # (Auto) 0.1x10^3/uL (0.0-0.2) Sodium Level 144mmol/L (136-145) Potassium Level 3.0mmol/L (3.5-5.1) Chloride Level 108mmol/L (98-107) Carbon Dioxide Level 27mmol/L (21-32) Anion Gap 9 (6-14) Blood Urea Nitrogen 8mg/dL (8-26) Creatinine 0.8mg/dL (0.7-1.3) Estimated GFR (Cockcroft-Gault) 109.4 Glucose Level 73mg/dL (70-99) Calcium Level 8.5mg/dL (8.5-10.1) Glucose (Fingerstick) 80mg/dL (70-99) Objective Assessment Leukocytosis - improved Diarrhea - C-diff neg. ? viral vs other GI process Elevated LFTs, improved from 09/01 [facility]. Fatty liver on CT abd/pelvis. h/o c. diff h/o colon cancer s/p resection, 2010 Obesity Plan Plan of Care Discontinue po vanc Further care per GI RUFINO VICTOR MD Sep 04, 2016 10:59
[2016-09-04 11:00] VITALS: BP 129/77
--- NOTE | 2016-09-04 11:34 | PDOC ---
PROGRESS NOTES Chief Complaint Chief Complaint 1. Acute Abdominal Pain w/ diarrhea 2. Metabolic gap acidosis 3. Leukocytosis 4. Sepsis 5. Vasomotor Nephropathy 6. Hematemesis 7. Dehydration 8. Vomiting 9. Hx of Colon Resection History of Present Illness History of Present Illness Pt states he is feeling better today upon arrival to room. Dilaudid has improved his abdominal pain but the pt states he still has the crampy diffuse pain across the abdomen at times. Pt was agreeable to possible discharge today. DW RN and - would like a referral to Heme/Onc for her . Vitals Vitals Vital Signs Date Time Temp Pulse Resp B/P Pulse Ox O2 Delivery O2 Flow Rate FiO2 09/04/16 11:00 97.5 85 18 129/77 97 97.5 09/04/16 09:32 Room Air Physical Exam General: Alert, Oriented X3, Cooperative, No acute distress Heart: Regular rate, No murmurs Lungs: Clear, Other (no wheezes present) Abdomen: Soft (tender diffusely), Other (Tenderness to palpation in all 4 quadrants, Normoactive Bowel Sounds) Extremities: No clubbing Skin: No rashes, Other (dry, poor turgor) Labs LABS Laboratory Tests Test 09/03/16 16:13 09/03/16 22:05 09/03/16 22:10 09/04/16 04:25 Glucose (Fingerstick) 71mg/dL (70-99) 15mg/dL (70-99) 93mg/dL (70-99) White Blood Count 13.1x10^3/uL (4.0-11.0) Red Blood Count 4.65x10^6/uL (4.30-5.70) Hemoglobin 13.8g/dL (13.0-17.5) Hematocrit 40.6% (39.0-53.0) Mean Corpuscular Volume 87fL (79-100) Mean Corpuscular Hemoglobin 30pg (25-35) Mean Corpuscular Hemoglobin Concent 34g/dL (31-37) Red Cell Distribution Width 13.0% (11.5-14.5) Platelet Count 256x10^3/uL (140-400) Neutrophils (%) (Auto) 55% (31-73) Lymphocytes (%) (Auto) 36% (24-48) Monocytes (%) (Auto) 7% (0-9) Eosinophils (%) (Auto) 1% (0-3) Basophils (%) (Auto) 1% (0-3) Neutrophils # (Auto) 7.2x10^3uL (1.8-7.7) Lymphocytes # (Auto) 4.7x10^3/uL (1.0-4.8) Monocytes # (Auto) 0.9x10^3/uL (0.0-1.1) Eosinophils # (Auto) 0.2x10^3/uL (0.0-0.7) Basophils # (Auto) 0.1x10^3/uL (0.0-0.2) Sodium Level 144mmol/L (136-145) Potassium Level 3.0mmol/L (3.5-5.1) Chloride Level 108mmol/L (98-107) Carbon Dioxide Level 27mmol/L (21-32) Anion Gap 9 (6-14) Blood Urea Nitrogen 8mg/dL (8-26) Creatinine 0.8mg/dL (0.7-1.3) Estimated GFR (Cockcroft-Gault) 109.4 Glucose Level 73mg/dL (70-99) Calcium Level 8.5mg/dL (8.5-10.1) Test 09/04/16 07:22 Glucose (Fingerstick) 80mg/dL (70-99) Review of Systems Review of Systems Complaining of Abdominal Pain Complaining of Weakness Assessment and Plan Assessmemt and Plan Problems Medical Problems: (1) Dehydration Status: Acute (2) Leukocytosis Status: Acute 1. Acute Abdominal Pain w/ diarrhea 2. Metabolic gap acidosis 3. Leukocytosis 4. Sepsis 5. Vasomotor Nephropathy 6. Hematemesis 7. Dehydration 8. Vomiting 9. Hx of Colon Resection Plan: - Leukocytosis improved to 13.1 today - C. Diff PCR: Negative - ID Consulted: await recommendations - Discontinued PO Vanc at this time - Most likely Viral in nature - GI Consulted- appreciate recommendations - Will continue the Carafate and PPI regimen started on admission - IV abx stopped on 09/03/16 as recommended - Zofran in place for Nausea prn - PT/OT to evaluated and treat - Continue Home Medications on discharge - Pt was started on Dilaudid for pain control yesterday; Will give prescription for Percocet on discharge - Heme Consult placed Disposition: Discharge ok if ok with subspecialists; RN given prescription for Percocet; Heme Consult can be outpatient Follow-up Problems: Comment Review of Relevant I have reviewed the following items zena (where applicable) has been applied. Labs Laboratory Tests Test 09/02/16 12:46 09/02/16 13:10 09/02/16 16:00 09/02/16 20:00 White Blood Count 46.8x10^3/uL (4.0-11.0) Red Blood Count 6.10x10^6/uL (4.30-5.70) Hemoglobin 18.1g/dL (13.0-17.5) Hematocrit 52.6% (39.0-53.0) Mean Corpuscular Volume 86fL (79-100) Mean Corpuscular Hemoglobin 30pg (25-35) Mean Corpuscular Hemoglobin Concent 35g/dL (31-37) Red Cell Distribution Width 12.9% (11.5-14.5) Platelet Count 596x10^3/uL (140-400) Neutrophils (%) (Auto) 87% (31-73) Lymphocytes (%) (Auto) 10% (24-48) Monocytes (%) (Auto) 4% (0-9) Eosinophils (%) (Auto) 0% (0-3) Basophils (%) (Auto) 0% (0-3) Neutrophils # (Auto) 40.6x10^3uL (1.8-7.7) Lymphocytes # (Auto) 4.5x10^3/uL (1.0-4.8) Monocytes # (Auto) 1.7x10^3/uL (0.0-1.1) Eosinophils # (Auto) 0.0x10^3/uL (0.0-0.7) Basophils # (Auto) 0.1x10^3/uL (0.0-0.2) Segmented Neutrophils % 75% (35-66) Band Neutrophils % 6% (0-9) Lymphocytes % 16% (24-48) Monocytes % 3% (0-10) Toxic Granulation Slight Platelet Estimate Adequate (ADEQUATE) Sodium Level 139mmol/L (136-145) Potassium Level 3.5mmol/L (3.5-5.1) Chloride Level 101mmol/L (98-107) Carbon Dioxide Level 17mmol/L (21-32) Anion Gap 21 (6-14) Blood Urea Nitrogen 16mg/dL (8-26) Creatinine 1.3mg/dL (0.7-1.3) Estimated GFR (Cockcroft-Gault) 62.5 BUN/Creatinine Ratio 12 (6-20) Glucose Level 239mg/dL (70-99) Calcium Level 9.8mg/dL (8.5-10.1) Total Bilirubin 0.7mg/dL (0.2-1.0) Aspartate Amino Transf (AST/SGOT) 38U/L (15-37) Alanine Aminotransferase (ALT/SGPT) 88U/L (16-63) Alkaline Phosphatase 113U/L (46-116) Total Protein 9.0g/dL (6.4-8.2) Albumin 4.2g/dL (3.4-5.0) Albumin/Globulin Ratio 0.9 (1.0-1.7) Lipase 124U/L (73-393) Urine Collection Type Unknown Urine Color [place] Urine Clarity Clear Urine pH 6.0 Urine Specific [place] >=1.030 Urine Protein 100mg/dL (NEG-TRACE) Urine Glucose (UA) 100mg/dL (NEG) Urine Ketones (Stick) 15mg/dL (NEG) Urine Blood Negative (NEG) Urine Nitrite Negative (NEG) Urine Bilirubin Negative (NEG) Urine Urobilinogen Dipstick 0.2mg/dL (0.2 mg/dL) Urine Leukocyte Esterase Negative (NEG) Urine RBC 0/HPF (0-2) Urine WBC 0/HPF (0-4) Urine Bacteria 0/HPF (0-FEW) Urine Hyaline Casts Many/HPF Urine Mucus Marked/LPF Urine Opiates Screen Pos (NEG) Urine Methadone Screen Neg (NEG) Urine Barbiturates Neg (NEG) Urine Phencyclidine Screen Neg (NEG) Urine Amphetamine/Methamphetamine Neg (NEG) Urine Benzodiazepines Screen Neg (NEG) Urine Cocaine Screen Neg (NEG) Urine Cannabinoids Screen Neg (NEG) Urine Ethyl Alcohol Neg (NEG) Lactic Acid Level 2.6mmol/L (0.4-2.0) Clostridium difficile Toxin (PCR) Negative (Negative) Test 09/02/16 20:45 09/02/16 20:55 09/02/16 23:50 09/03/16 06:45 Glucose (Fingerstick) 124mg/dL (70-99) Lactic Acid Level 3.0mmol/L (0.4-2.0) 1.5mmol/L (0.4-2.0) Sodium Level 141mmol/L (136-145) Potassium Level 3.4mmol/L (3.5-5.1) Chloride Level 109mmol/L (98-107) Carbon Dioxide Level 24mmol/L (21-32) Anion Gap 8 (6-14) Blood Urea Nitrogen 11mg/dL (8-26) Creatinine 0.8mg/dL (0.7-1.3) Estimated GFR (Cockcroft-Gault) 109.4 Glucose Level 100mg/dL (70-99) Calcium Level 8.2mg/dL (8.5-10.1) White Blood Count 28.6x10^3/uL (4.0-11.0) Red Blood Count 4.66x10^6/uL (4.30-5.70) Hemoglobin 13.7g/dL (13.0-17.5) Hematocrit 41.0% (39.0-53.0) Mean Corpuscular Volume 88fL (79-100) Mean Corpuscular Hemoglobin 29pg (25-35) Mean Corpuscular Hemoglobin Concent 33g/dL (31-37) Red Cell Distribution Width 12.7% (11.5-14.5) Platelet Count 328x10^3/uL (140-400) Neutrophils (%) (Auto) 74% (31-73) Lymphocytes (%) (Auto) 21% (24-48) Monocytes (%) (Auto) 5% (0-9) Eosinophils (%) (Auto) 0% (0-3) Basophils (%) (Auto) 0% (0-3) Neutrophils # (Auto) 21.1x10^3uL (1.8-7.7) Lymphocytes # (Auto) 5.9x10^3/uL (1.0-4.8) Monocytes # (Auto) 1.5x10^3/uL (0.0-1.1) Eosinophils # (Auto) 0.0x10^3/uL (0.0-0.7) Basophils # (Auto) 0.1x10^3/uL (0.0-0.2) Segmented Neutrophils % 75% (35-66) Band Neutrophils % 1% (0-9) Lymphocytes % 20% (24-48) Monocytes % 4% (0-10) Platelet Estimate Adequate (ADEQUATE) Test 09/03/16 07:55 09/03/16 08:20 09/03/16 08:25 09/03/16 10:58 Glucose (Fingerstick) 82mg/dL (70-99) 80mg/dL (70-99) Sodium Level 142mmol/L (136-145) Potassium Level 3.2mmol/L (3.5-5.1) Chloride Level 110mmol/L (98-107) Carbon Dioxide Level 24mmol/L (21-32) Anion Gap 8 (6-14) Blood Urea Nitrogen 12mg/dL (8-26) Creatinine 0.8mg/dL (0.7-1.3) Estimated GFR (Cockcroft-Gault) 109.4 BUN/Creatinine Ratio 15 (6-20) Glucose Level 86mg/dL (70-99) Calcium Level 8.0mg/dL (8.5-10.1) Total Bilirubin 0.6mg/dL (0.2-1.0) Aspartate Amino Transf (AST/SGOT) 48U/L (15-37) Alanine Aminotransferase (ALT/SGPT) 66U/L (16-63) Alkaline Phosphatase 76U/L (46-116) Total Protein 6.2g/dL (6.4-8.2) Albumin 3.0g/dL (3.4-5.0) Albumin/Globulin Ratio 0.9 (1.0-1.7) Cortisol AM Sample 0.7ug/dL (6.2-19.4) Test 09/03/16 16:13 09/03/16 22:05 09/03/16 22:10 09/04/16 04:25 Glucose (Fingerstick) 71mg/dL (70-99) 15mg/dL (70-99) 93mg/dL (70-99) White Blood Count 13.1x10^3/uL (4.0-11.0) Red Blood Count 4.65x10^6/uL (4.30-5.70) Hemoglobin 13.8g/dL (13.0-17.5) Hematocrit 40.6% (39.0-53.0) Mean Corpuscular Volume 87fL (79-100) Mean Corpuscular Hemoglobin 30pg (25-35) Mean Corpuscular Hemoglobin Concent 34g/dL (31-37) Red Cell Distribution Width 13.0% (11.5-14.5) Platelet Count 256x10^3/uL (140-400) Neutrophils (%) (Auto) 55% (31-73) Lymphocytes (%) (Auto) 36% (24-48) Monocytes (%) (Auto) 7% (0-9) Eosinophils (%) (Auto) 1% (0-3) Basophils (%) (Auto) 1% (0-3) Neutrophils # (Auto) 7.2x10^3uL (1.8-7.7) Lymphocytes # (Auto) 4.7x10^3/uL (1.0-4.8) Monocytes # (Auto) 0.9x10^3/uL (0.0-1.1) Eosinophils # (Auto) 0.2x10^3/uL (0.0-0.7) Basophils # (Auto) 0.1x10^3/uL (0.0-0.2) Sodium Level 144mmol/L (136-145) Potassium Level 3.0mmol/L (3.5-5.1) Chloride Level 108mmol/L (98-107) Carbon Dioxide Level 27mmol/L (21-32) Anion Gap 9 (6-14) Blood Urea Nitrogen 8mg/dL (8-26) Creatinine 0.8mg/dL (0.7-1.3) Estimated GFR (Cockcroft-Gault) 109.4 Glucose Level 73mg/dL (70-99) Calcium Level 8.5mg/dL (8.5-10.1) Test 09/04/16 07:22 Glucose (Fingerstick) 80mg/dL (70-99) Laboratory Tests Test 09/03/16 16:13 09/03/16 22:05 09/03/16 22:10 09/04/16 04:25 Glucose (Fingerstick) 71mg/dL (70-99) 15mg/dL (70-99) 93mg/dL (70-99) White Blood Count 13.1x10^3/uL (4.0-11.0) Red Blood Count 4.65x10^6/uL (4.30-5.70) Hemoglobin 13.8g/dL (13.0-17.5) Hematocrit 40.6% (39.0-53.0) Mean Corpuscular Volume 87fL (79-100) Mean Corpuscular Hemoglobin 30pg (25-35) Mean Corpuscular Hemoglobin Concent 34g/dL (31-37) Red Cell Distribution Width 13.0% (11.5-14.5) Platelet Count 256x10^3/uL (140-400) Neutrophils (%) (Auto) 55% (31-73) Lymphocytes (%) (Auto) 36% (24-48) Monocytes (%) (Auto) 7% (0-9) Eosinophils (%) (Auto) 1% (0-3) Basophils (%) (Auto) 1% (0-3) Neutrophils # (Auto) 7.2x10^3uL (1.8-7.7) Lymphocytes # (Auto) 4.7x10^3/uL (1.0-4.8) Monocytes # (Auto) 0.9x10^3/uL (0.0-1.1) Eosinophils # (Auto) 0.2x10^3/uL (0.0-0.7) Basophils # (Auto) 0.1x10^3/uL (0.0-0.2) Sodium Level 144mmol/L (136-145) Potassium Level 3.0mmol/L (3.5-5.1) Chloride Level 108mmol/L (98-107) Carbon Dioxide Level 27mmol/L (21-32) Anion Gap 9 (6-14) Blood Urea Nitrogen 8mg/dL (8-26) Creatinine 0.8mg/dL (0.7-1.3) Estimated GFR (Cockcroft-Gault) 109.4 Glucose Level 73mg/dL (70-99) Calcium Level 8.5mg/dL (8.5-10.1) Test 09/04/16 07:22 Glucose (Fingerstick) 80mg/dL (70-99) Microbiology 09/02/16 Blood Culture - Preliminary, Resulted NO GROWTH AFTER 1 DAY 09/02/16 Fecal Leukocyte Stain - Final, Complete Medications Current Medications Fentanyl Citrate 25 mcg 25 mcg PRN Q15MIN PRN IV PAIN GREATER THAN 3/10 Last administered on 09/02/16 14:52; Start 09/02/16 at 13:00; Stop 09/02/16 at 16:50; Status DC Sodium Chloride (Iv Sodium Chloride 0.9% 1000ml Bag) 1,000 ml @ 1,000 mls/hr Q1H IV Last administered on 09/02/16 13:12; Start 09/02/16 at 13:00; Stop at 13:59; Status DC Ondansetron HCl 4 mg 4 mg 1X ONCE IV Last administered on 09/02/16 13:12; Start 09/02/16 at 13:00; Stop 09/02/16 at 13:05; Status DC Sodium Chloride 1,000 ml @ 1,000 mls/hr 1X ONCE IV Last administered on 14:08; Start 09/02/16 at 13:45; Stop 09/02/16 at 14:44; Status DC Sodium Chloride (Iv Sodium Chloride 0.9% 1000ml Bag) 1,000 ml @ 1,000 mls/hr 1X ONCE IV Last administered on 09/02/16 16:06; Start 09/02/16 at 16:00; Stop 09/02/16 at 16:59; Status DC Ondansetron HCl (Zofran) 4 mg PRN Q8HRS PRN IV NAUSEA/VOMITING; Start 09/02/16 at 16:15; Stop 09/03/16 at 16:14; Status DC Fentanyl Citrate 50 mcg 50 mcg PRN Q1HR PRN IV PAIN Last administered on 17:21; Start 09/02/16 at 16:15; Stop 09/04/16 at 23:59 Sodium Chloride (Iv Sodium Chloride 0.9% 1000ml Bag) 1,000 ml @ 100 mls/hr Q10H IV Last administered on 09/03/16 11:47; Start 09/02/16 at 16:06; Stop at 16:05; Status DC Metronidazole (Flagyl) 500 mg Q8HRS PO Last administered on 09/03/16 05:30; Start 09/02/16 at 17:00; Stop 09/03/16 at 12:50; Status DC Morphine Sulfate 4 mg PRN Q2HR PRN IV pain Last administered on 09/03/16 20:04 ; Start 09/02/16 at 17:00 Oxycodone/ Acetaminophen (Percocet 7.5/ 325) 1 tab PRN Q4HRS PRN PO pain Last administered on 09/03/16 21:25; Start 09/02/16 at 17:00 Multi-Ingredient Mouthwash/Gargle (Gi Cocktail Single Dose) 15 ml 1X ONCE SWSW Last administered on 09/02/16 17:21; Start 09/02/16 at 17:00; Stop 09/02/16 at 17:01; Status DC Sucralfate (Carafate) 1 gm BID PO Last administered on 09/04/16 08:27; Start 09/02/16 at 21:00 Pantoprazole Sodium (Protonix Vial) 40 mg 1X ONCE IVP Last administered on 09/02 17:21; Start 09/02/16 at 17:00; Stop 09/02/16 at 17:01; Status DC Pantoprazole Sodium (Protonix) 40 mg BIDAC PO Last administered on 09/04/16 08 :27; Start 09/03/16 at 07:30 Insulin Aspart (Novolog) 0-7 UNITS TIDWMEALS SQ ; Start 09/02/16 at 17:30 Dextrose 12.5 gm 12.5 gm PRN Q15MIN PRN IV SEE COMMENTS; Start 09/02/16 at 17:00 Potassium Chloride (KCl Premix 10meq) 100 ml @ 100 mls/hr Q1H IV Last administered on 09/02/16 19:56; Start 09/02/16 at 17:00; Stop 09/02/16 at 18:59; Status DC Potassium Chloride (Klor-Con) 20 meq 1X ONCE PO Last administered on 09/02/16 18:20; Start 09/02/16 at 17:00; Stop 09/02/16 at 17:01; Status DC Enoxaparin Sodium (Lovenox Per Pharmacy Prophylaxis Dosing) 1 each PRN DAILY PRN MC SEE COMMENTS; Start 09/02/16 at 17:00 Enoxaparin Sodium 40 mg 40 mg Q24H SQ Last administered on 09/03/16 17:11; Start 09/02/16 at 18:00 Sodium Chloride (Iv Sodium Chloride 0.9% 1000ml Bag) 1,000 ml @ 1,000 mls/hr 1X ONCE IV Last administered on 09/02/16 23:03; Start 09/02/16 at 23:00; Stop 09/02/16 at 23:59; Status DC Ciprofloxacin (Cipro) 500 mg BID PO Last administered on 09/03/16 08:39; Start 09/02/16 at 23:30; Stop 09/03/16 at 12:50; Status DC Vancomycin HCl 125 mg [id number] PO Last administered on 09/04/16 08:27; Start at 09:00; Stop 09/04/16 at 10:59; Status DC Hydromorphone HCl (Dilaudid) 1 mg PRN Q2HR PRN IV PAIN Last administered on 08:28; Start 09/03/16 at 22:30 Zolpidem Tartrate (Ambien) 10 mg PRN QHS PRN PO INSOMNIA Last administered on 23:21; Start 09/03/16 at 22:30 Hydrocortisone Sodium Succinate (Solu-Cortef) 100 mg Q8HRS IV Last administered on 09/04/16 05:12; Start 09/04/16 at 06:00 Active Scripts Active Reported Zolpidem Tartrate 10 Mg Tablet 1 Tab PO QHS Vitals/I & O Vital Sign - Last 24 Hours 09/03/16 09/03/16 09/03/16 09/03/16 11:41 11:45 11:45 14:14 Temp 97.7 97.7 Pulse 89 Resp 19 B/P 112/71 Pulse Ox 97 O2 Delivery Room Air Room Air Room Air Room Air 09/03/16 09/03/16 09/03/16 09/03/16 15:00 17:11 17:11 19:46 Temp 97.9 97.5 97.9 97.5 Pulse 85 92 Resp 18 18 B/P 102/71 108/72 Pulse Ox 96 99 O2 Delivery Room Air Room Air Room Air Room Air 09/03/16 09/03/16 09/03/1617 20:00 20:04 20:34 21:25 O2 Delivery Room Air Room Air Room Air Room Air 09/03/16 09/03/16 09/03/16 09/04/16 22:25 23:19 23:22 02:39 Temp 97.7 97.7 Pulse 76 Resp 18 B/P 114/71 Pulse Ox 95 O2 Delivery Room Air Room Air Room Air Room Air 09/04/16 09/04/16 09/04/16 09/04/16 03:00 05:13 07:00 08:00 Temp 100.4 97.9 100.4 97.9 Pulse 98 89 Resp 18 18 B/P 121/74 132/87 Pulse Ox 95 98 O2 Delivery Room Air Room Air Room Air Room Air 09/04/16 09/04/16 09/04/16 08:28 09:32 11:00 Temp 97.5 97.5 Pulse 85 Resp 16 14 18 B/P 129/77 Pulse Ox 98 98 97 O2 Delivery Room Air Room Air Intake and Output 09/03/16 09/03/16 09/04/16 15:00 23:00 07:00 Intake Total 880 ml 750 ml Balance 880 ml 750 ml MARJAN VELASCO III DO Sep 04, 2016 11:34
[2016-09-04] MEDS ORDERED: POTASSIUM CHLORIDE 20 MEQ TABLET.ER. PO ONE (12:00)
--- NOTE | 2016-09-04 12:17 | PDOC ---
Subjective: Subjective: Some diarrhea this morning, ongoing abd pain. Objective: Objective: Per RN - upset, pt not feeling well and asking for IV Dilaudid, Dr. Mccarty consulted. Note discharge orders. Vital Signs: Vital Signs Date Time Temp Pulse Resp B/P Pulse Ox O2 Delivery O2 Flow Rate FiO2 09/04/16 11:38 14 97 Room Air 09/04/16 11:00 97.5 85 129/77 97.5 Labs: Laboratory Tests Test 09/03/16 16:13 09/03/16 22:05 09/03/16 22:10 09/04/16 04:25 Glucose (Fingerstick) 71mg/dL 15mg/dL 93mg/dL White Blood Count 13.1x10^3/uL Red Blood Count 4.65x10^6/uL Hemoglobin 13.8g/dL Hematocrit 40.6% Mean Corpuscular Volume 87fL Mean Corpuscular Hemoglobin 30pg Mean Corpuscular Hemoglobin Concent 34g/dL Red Cell Distribution Width 13.0% Platelet Count 256x10^3/uL Neutrophils (%) (Auto) 55% Lymphocytes (%) (Auto) 36% Monocytes (%) (Auto) 7% Eosinophils (%) (Auto) 1% Basophils (%) (Auto) 1% Neutrophils # (Auto) 7.2x10^3uL Lymphocytes # (Auto) 4.7x10^3/uL Monocytes # (Auto) 0.9x10^3/uL Eosinophils # (Auto) 0.2x10^3/uL Basophils # (Auto) 0.1x10^3/uL Sodium Level 144mmol/L Potassium Level 3.0mmol/L Chloride Level 108mmol/L Carbon Dioxide Level 27mmol/L Anion Gap 9 Blood Urea Nitrogen 8mg/dL Creatinine 0.8mg/dL Estimated GFR (Cockcroft-Gault) 109.4 Glucose Level 73mg/dL Calcium Level 8.5mg/dL Test 09/04/16 07:22 09/04/16 11:44 Glucose (Fingerstick) 80mg/dL 120mg/dL PE: GEN: NAD LUNGS:clear anteriorly HEART: RRR ABD: BS quiet, diffusely tender NEURO/PSYCH: A & O 3 A/P: Chronic abdominal pain w/ diarrhea -worse x 2 weeks prior to admission -h/o C Diff - neg this admission (now off atbx) -h/o colon cancer s/p resection, last 'scopes 2015 -celiac serology pending Leukocytosis - improved Low cortisol -now on hydrocortisone IV -- Will review w/ Dr. Caba. MINERVA CHEEK Sep 04, 2016 12:17
[2016-09-04] MEDS: OXYCODONE/APAP 7.5/325 TABLET. PO PRN ×2 (13:23→22:21)
--- NOTE | 2016-09-04 13:25 | PDOC ---
Provider Note Provider Note Onc consult dictated- [id number] H/O colon cancer s/p resxn [place] 5 [place]- Scans and recent endoscopy without any evidence of recurrence. No further onc f/u needed. Initial neutrophilia, erythrocytosis, thrombocytosis- due to Hemoconcentration from n/v/d, now normal D/W - no concern for MPN. D/W Dr. Ewing. LESLI VYAS DO Sep 04, 2016 13:25
[2016-09-04 15:00] VITALS: BP 141/80
[2016-09-04] MEDS: ENOXAPARIN 40 MG/0.4 ML DISP.SYRIN. SQ SCH (16:54)
--- NOTE | 2016-09-04 18:03 | CONS ---
DATE OF CONSULTATION: 09/02/2016 REFERRING PHYSICIAN: Dr. Leger REASON FOR CONSULT: Diarrhea with a history of Clostridium difficile. HISTORY OF PRESENT ILLNESS: This patient is a 35-year-old gentleman with a history of colon cancer at the age of 34, status post resection in 2010, who presents with a two-week history of diarrhea associated with abdominal cramping and nausea. He was initially seen at [facility] on the . A CT of abdomen/pelvis with oral and IV contrast revealed a diffuse fatty infiltration of the liver, no ascites or inflammatory mass, negative for abdominopelvic adenopathy. At that time, he had elevated white blood cell count of 29,900 with segs 73% and bands 1%. Lipase level was 122. His AST was 52, ALT 95 and alkaline phosphatase 139. He received IV fluids, dicyclomine, simethicone, Phenergan and [place] prescriptions and released home. However, the patient's symptoms persisted. He has since been admitted to [facility]. On admission, his white blood cell count increased to 46,800. Stool cultures have been ordered as well as checked for C. difficile. He was dosed with metronidazole and ciprofloxacin. Dr. Victor was notified and added oral vancomycin. The patient has a history of having 8 episodes of Clostridium difficile associated diarrhea. He denies recent antibiotics within the last 6 months or so. He did not feel that he has C. diff. He denies recent traveling, change in diet or dinning out. Denies significant weight changes. Aside from cold and hot sweats, denies fevers. He had an episode of vomiting prior to admission, but none since. PAST MEDICAL HISTORY: Colon cancer at the age of 34, status post resection. Tonsillectomy, gastric ulcer, Clostridium difficile. FAMILY HISTORY: No history of cancer. SOCIAL HISTORY: The patient is . He lives at home. 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 He is a nonsmoker. No history of alcohol or illicit drug use. ALLERGIES: No known drug allergies. MEDICATIONS: Oral vancomycin, recent ciprofloxacin and metronidazole which have been discontinued. Other medications are available and have been reviewed on the MAR. REVIEW OF SYSTEMS: Per HPI, otherwise all other review of systems are negative. PHYSICAL EXAMINATION: GENERAL: gentleman, propped up in bed on his computer, no apparent distress. VITAL SIGNS: Afebrile. Stable. Weight 235 pounds. HEENT: Pupils equally round and reactive. Normal conjunctivae. Oral mucosa is pink and moist. No lesions seen. NECK: Supple, no adenopathy present. LUNGS: Clear to auscultation. HEART: Normal S1 and S2. ABDOMEN: Nondistended. Bowel sounds are present, soft, mild mid abdominal tenderness. No rebound. EXTREMITIES: No gross edema or cyanosis. SKIN: Without rash. Warm to touch. NEUROLOGIC: Alert and oriented x 3. Moves all extremities. LABORATORY DATA: Today's WBC 28,600, hemoglobin 13.7, hematocrit 41.0, platelet count 328,000, segs 75%, bands 1%. Sodium 142, potassium 3.2, creatinine 0.8, BUN 12, glucose 86, total bilirubin 0.6, AST 48, ALT 66, albumin 3.0. Lipase 124. Urinalysis is unremarkable for infection. Urine toxicology positive for opiates. Fecal leukocyte stain shows few WBCs. Stool cultures and C. diff pending. Blood cultures pending. IMPRESSION: 1. Leukocytosis. 2. Diarrhea. 3. Elevated LFTs, improving. 4. History of Clostridium difficile. 5. History of colon cancer, status post resection in 2010. 6. Obesity. PLAN: Continue the oral vancomycin. Await stool cultures and results of C. diff. We will follow up on morning laboratory values. Maintain hydration. Supportive care. Thank you, Dr. Leger for asking us to participate in this patient's care. Should you have further questions or concerns, please call. RUFINO VICTOR MD DR: JESS/leonard JOB#: [id number] / [id number]
[2016-09-04 19:15] VITALS: BP 138/87
[2016-09-04] MEDS: ZOLPIDEM 5 MG TABLET. PO PRN (22:21)
[2016-09-04 23:14] VITALS: BP 139/88
--- NOTE | 2016-09-05 00:53 | DS ---
DATE OF DISCHARGE: 09/04/2016 ADMISSION DIAGNOSES: Abdominal pain, possible C. difficile, dehydration, leukocytosis, and history of colon cancer. DISCHARGE DIAGNOSES: Resolving abdominal pain, resolving dehydration, resolving leukocytosis, history of colon cancer, and history of radiation therapy. CONSULTS: GI and Dr. Mccarty (I just consulted him this morning at the ____ for a second opinion). PROCEDURES: None. HOSPITAL COURSE: The patient is a pleasant 35-year-old male with a previous history of colon cancer. Basically, presented to the ER with abdominal pain. He also has history of C. difficile. We were concerned he could have C. difficile because he did have some diarrhea. His white count was surprisingly high in the mid 40,000 range. We gave him fluids and antibiotics, consulted GI. Basically, over the last couple of days, he has returned to his baseline. His pain has gone and his diarrhea has gone. His white count is down to 13 and his hemoglobin and platelets were normal. If okay with GI, we are going to let the patient go home with close outpatient followup. DISPOSITION: Home. ACTIVITY: As tolerated. DIET: Low sodium. MEDICATIONS: Please see the MRAD. TOTAL TIME FOR DISCHARGE: 32 minutes. ____ okay with GI and Heme/Onc, we are going to discharge. MARJAN VELASCO DO DR: NÉSTOR/leonard JOB#: [id number] / [id number]
[2016-09-05] MEDS: HYDROMORPHONE 2 MG/ML VIAL. IV PRN ×10 (01:22→22:14)
[2016-09-05 03:25] VITALS: BP 137/83
[2016-09-05] MEDS: OXYCODONE/APAP 7.5/325 TABLET. PO PRN ×4 (04:15→22:15)
[2016-09-05 06:17] LABS: CREATININE 0.7 mg/dL (0.7-1.3); GFR 127.6; POTASSIUM 3.1 mmol/L (3.5-5.1)
[2016-09-05] MEDS: HYDROCORTISONE SOD SUCC/PF 100 MG/2 ML VIAL. IV SCH ×3 (06:32→22:14)
[2016-09-05 07:00] VITALS: BP 162/96
[2016-09-05 07:13] LABS: BASO % 0 % (0-3); EOS % 0 % (0-3); HEMATOCRIT 44.5 % (39.0-53.0); HEMOGLOBIN 14.8 g/dL (13.0-17.5); LYMPH # 4.8 x10^3/uL (1.0-4.8); LYMPH % 24 % (24-48); MEAN CORPUSCULAR HEMOGLOBIN 29 pg (25-35); MEAN CORPUSCULAR HGB CONC 33 g/dL (31-37); MEAN CORPUSCULAR VOLUME 87 fL (79-100); MONO % 7 % (0-9); NEUT % 69 % (31-73); PLATELET COUNT 338 x10^3/uL (140-400); RED BLOOD COUNT 5.13 x10^6/uL (4.30-5.70); RED CELL DISTRIBUTION WIDTH 12.5 % (11.5-14.5); WHITE BLOOD COUNT 20.3 x10^3/uL (4.0-11.0)
[2016-09-05] MEDS: INSULIN ASPART 300 UNITS/3 ML INSULN.PEN SQ SCH ×3 (08:00→16:58)
[2016-09-05] MEDS: SUCRALFATE 1 GM TABLET. PO SCH ×2 (08:30→20:13)
[2016-09-05] MEDS: PANTOPRAZOLE 40 MG TABLET. PO SCH ×2 (08:31→16:56)
[2016-09-05] MEDS: POTASSIUM CHLORIDE 20 MEQ TABLET.ER. PO SCH (08:31)
[2016-09-05] MEDS ORDERED: POTASSIUM CHLORIDE 20 MEQ TABLET.ER. PO ONE (09:00)
[2016-09-05 11:00] VITALS: BP 162/92
--- NOTE | 2016-09-05 11:21 | PDOC ---
PROGRESS NOTES Chief Complaint Chief Complaint 1. Acute Abdominal Pain w/ diarrhea 2. Metabolic gap acidosis 3. Leukocytosis 4. Sepsis 5. Vasomotor Nephropathy 6. Hematemesis 7. Dehydration 8. Vomiting 9. H/O colon cancer s/p resxn and chemo out of state 5 yr ago History of Present Illness History of Present Illness Pt feeling better today Pt still has mild diarrhea and abd pain Pt will stay in hospital another day dt elevated WBC VSS DW RN Vitals Vitals Vital Signs Date Time Temp Pulse Resp B/P Pulse Ox O2 Delivery O2 Flow Rate FiO2 09/05/16 10:39 16 94 Room Air 09/05/16 07:00 98.1 111 162/96 98.1 Physical Exam General: Alert, Oriented X3, Cooperative, No acute distress Heart: Regular rate, No murmurs Lungs: Clear, Other (no wheezes present) Abdomen: Soft (tender diffusely), Other (Abd tenderness x4 quadrants, Normoactive Bowel Sounds) Extremities: No clubbing Skin: No rashes, Other (dry, poor turgor) Labs LABS Laboratory Tests Test 09/04/16 11:44 09/04/16 16:54 09/04/16 20:39 09/05/16 04:37 Glucose (Fingerstick) 120mg/dL (70-99) 120mg/dL (70-99) 139mg/dL (70-99) White Blood Count 20.3x10^3/uL (4.0-11.0) Red Blood Count 5.13x10^6/uL (4.30-5.70) Hemoglobin 14.8g/dL (13.0-17.5) Hematocrit 44.5% (39.0-53.0) Mean Corpuscular Volume 87fL (79-100) Mean Corpuscular Hemoglobin 29pg (25-35) Mean Corpuscular Hemoglobin Concent 33g/dL (31-37) Red Cell Distribution Width 12.5% (11.5-14.5) Platelet Count 338x10^3/uL (140-400) Neutrophils (%) (Auto) 69% (31-73) Lymphocytes (%) (Auto) 24% (24-48) Monocytes (%) (Auto) 7% (0-9) Eosinophils (%) (Auto) 0% (0-3) Basophils (%) (Auto) 0% (0-3) Neutrophils # (Auto) 14.1x10^3uL (1.8-7.7) Lymphocytes # (Auto) 4.8x10^3/uL (1.0-4.8) Monocytes # (Auto) 1.3x10^3/uL (0.0-1.1) Eosinophils # (Auto) 0.0x10^3/uL (0.0-0.7) Basophils # (Auto) 0.0x10^3/uL (0.0-0.2) Test 09/05/16 05:30 09/05/16 08:57 Sodium Level 142mmol/L (136-145) Potassium Level 3.1mmol/L (3.5-5.1) Chloride Level 103mmol/L (98-107) Carbon Dioxide Level 30mmol/L (21-32) Anion Gap 9 (6-14) Blood Urea Nitrogen 8mg/dL (8-26) Creatinine 0.7mg/dL (0.7-1.3) Estimated GFR (Cockcroft-Gault) 127.6 Glucose Level 87mg/dL (70-99) Calcium Level 9.0mg/dL (8.5-10.1) Glucose (Fingerstick) 102mg/dL (70-99) Review of Systems Review of Systems Complains of diarrhea Complains of abd pain Assessment and Plan Assessmemt and Plan Problems Medical Problems: (1) Dehydration Status: Acute (2) Leukocytosis Status: Acute Assessment: 1. Acute Abdominal Pain w/ diarrhea 2. Metabolic gap acidosis 3. Leukocytosis 4. Sepsis 5. Vasomotor Nephropathy 6. Hematemesis 7. Dehydration 8. Vomiting 9. H/O colon cancer s/p resxn and chemo out of state 5 yr ago Plan: Await subspecialty input regarding WBC trending back up Await celiac serology Onc consult ruled out recurrence of colon cancer Repeat labs Continue pain control PTOT [place] RN Problems: Comment Review of Relevant I have reviewed the following items zena (where applicable) has been applied. Labs Laboratory Tests Test 09/03/16 16:13 09/03/16 22:05 09/03/16 22:10 09/04/16 04:25 Glucose (Fingerstick) 71mg/dL (70-99) 15mg/dL (70-99) 93mg/dL (70-99) White Blood Count 13.1x10^3/uL (4.0-11.0) Red Blood Count 4.65x10^6/uL (4.30-5.70) Hemoglobin 13.8g/dL (13.0-17.5) Hematocrit 40.6% (39.0-53.0) Mean Corpuscular Volume 87fL (79-100) Mean Corpuscular Hemoglobin 30pg (25-35) Mean Corpuscular Hemoglobin Concent 34g/dL (31-37) Red Cell Distribution Width 13.0% (11.5-14.5) Platelet Count 256x10^3/uL (140-400) Neutrophils (%) (Auto) 55% (31-73) Lymphocytes (%) (Auto) 36% (24-48) Monocytes (%) (Auto) 7% (0-9) Eosinophils (%) (Auto) 1% (0-3) Basophils (%) (Auto) 1% (0-3) Neutrophils # (Auto) 7.2x10^3uL (1.8-7.7) Lymphocytes # (Auto) 4.7x10^3/uL (1.0-4.8) Monocytes # (Auto) 0.9x10^3/uL (0.0-1.1) Eosinophils # (Auto) 0.2x10^3/uL (0.0-0.7) Basophils # (Auto) 0.1x10^3/uL (0.0-0.2) Sodium Level 144mmol/L (136-145) Potassium Level 3.0mmol/L (3.5-5.1) Chloride Level 108mmol/L (98-107) Carbon Dioxide Level 27mmol/L (21-32) Anion Gap 9 (6-14) Blood Urea Nitrogen 8mg/dL (8-26) Creatinine 0.8mg/dL (0.7-1.3) Estimated GFR (Cockcroft-Gault) 109.4 Glucose Level 73mg/dL (70-99) Calcium Level 8.5mg/dL (8.5-10.1) Test 09/04/16 07:22 09/04/16 11:44 09/04/16 16:54 09/04/16 20:39 Glucose (Fingerstick) 80mg/dL (70-99) 120mg/dL (70-99) 120mg/dL (70-99) 139mg/dL (70-99) Test 09/05/16 04:37 09/05/16 05:30 09/05/16 08:57 White Blood Count 20.3x10^3/uL (4.0-11.0) Red Blood Count 5.13x10^6/uL (4.30-5.70) Hemoglobin 14.8g/dL (13.0-17.5) Hematocrit 44.5% (39.0-53.0) Mean Corpuscular Volume 87fL (79-100) Mean Corpuscular Hemoglobin 29pg (25-35) Mean Corpuscular Hemoglobin Concent 33g/dL (31-37) Red Cell Distribution Width 12.5% (11.5-14.5) Platelet Count 338x10^3/uL (140-400) Neutrophils (%) (Auto) 69% (31-73) Lymphocytes (%) (Auto) 24% (24-48) Monocytes (%) (Auto) 7% (0-9) Eosinophils (%) (Auto) 0% (0-3) Basophils (%) (Auto) 0% (0-3) Neutrophils # (Auto) 14.1x10^3uL (1.8-7.7) Lymphocytes # (Auto) 4.8x10^3/uL (1.0-4.8) Monocytes # (Auto) 1.3x10^3/uL (0.0-1.1) Eosinophils # (Auto) 0.0x10^3/uL (0.0-0.7) Basophils # (Auto) 0.0x10^3/uL (0.0-0.2) Sodium Level 142mmol/L (136-145) Potassium Level 3.1mmol/L (3.5-5.1) Chloride Level 103mmol/L (98-107) Carbon Dioxide Level 30mmol/L (21-32) Anion Gap 9 (6-14) Blood Urea Nitrogen 8mg/dL (8-26) Creatinine 0.7mg/dL (0.7-1.3) Estimated GFR (Cockcroft-Gault) 127.6 Glucose Level 87mg/dL (70-99) Calcium Level 9.0mg/dL (8.5-10.1) Glucose (Fingerstick) 102mg/dL (70-99) Laboratory Tests Test 09/04/16 11:44 09/04/16 16:54 09/04/16 20:39 09/05/16 04:37 Glucose (Fingerstick) 120mg/dL (70-99) 120mg/dL (70-99) 139mg/dL (70-99) White Blood Count 20.3x10^3/uL (4.0-11.0) Red Blood Count 5.13x10^6/uL (4.30-5.70) Hemoglobin 14.8g/dL (13.0-17.5) Hematocrit 44.5% (39.0-53.0) Mean Corpuscular Volume 87fL (79-100) Mean Corpuscular Hemoglobin 29pg (25-35) Mean Corpuscular Hemoglobin Concent 33g/dL (31-37) Red Cell Distribution Width 12.5% (11.5-14.5) Platelet Count 338x10^3/uL (140-400) Neutrophils (%) (Auto) 69% (31-73) Lymphocytes (%) (Auto) 24% (24-48) Monocytes (%) (Auto) 7% (0-9) Eosinophils (%) (Auto) 0% (0-3) Basophils (%) (Auto) 0% (0-3) Neutrophils # (Auto) 14.1x10^3uL (1.8-7.7) Lymphocytes # (Auto) 4.8x10^3/uL (1.0-4.8) Monocytes # (Auto) 1.3x10^3/uL (0.0-1.1) Eosinophils # (Auto) 0.0x10^3/uL (0.0-0.7) Basophils # (Auto) 0.0x10^3/uL (0.0-0.2) Test 09/05/16 05:30 09/05/16 08:57 Sodium Level 142mmol/L (136-145) Potassium Level 3.1mmol/L (3.5-5.1) Chloride Level 103mmol/L (98-107) Carbon Dioxide Level 30mmol/L (21-32) Anion Gap 9 (6-14) Blood Urea Nitrogen 8mg/dL (8-26) Creatinine 0.7mg/dL (0.7-1.3) Estimated GFR (Cockcroft-Gault) 127.6 Glucose Level 87mg/dL (70-99) Calcium Level 9.0mg/dL (8.5-10.1) Glucose (Fingerstick) 102mg/dL (70-99) Microbiology 09/02/16 Blood Culture - Preliminary, Resulted NO GROWTH AFTER 2 DAYS 09/02/16 Fecal Leukocyte Stain - Final, Complete Medications Current Medications Fentanyl Citrate 25 mcg 25 mcg PRN Q15MIN PRN IV PAIN GREATER THAN 3/10 Last administered on 09/02/16 14:52; Start 09/02/16 at 13:00; Stop 09/02/16 at 16:50; Status DC Sodium Chloride (Iv Sodium Chloride 0.9% 1000ml Bag) 1,000 ml @ 1,000 mls/hr Q1H IV Last administered on 09/02/16 13:12; Start 09/02/16 at 13:00; Stop at 13:59; Status DC Ondansetron HCl 4 mg 4 mg 1X ONCE IV Last administered on 09/02/16 13:12; Start 09/02/16 at 13:00; Stop 09/02/16 at 13:05; Status DC Sodium Chloride 1,000 ml @ 1,000 mls/hr 1X ONCE IV Last administered on 14:08; Start 09/02/16 at 13:45; Stop 09/02/16 at 14:44; Status DC Sodium Chloride (Iv Sodium Chloride 0.9% 1000ml Bag) 1,000 ml @ 1,000 mls/hr 1X ONCE IV Last administered on 09/02/16 16:06; Start 09/02/16 at 16:00; Stop 09/02/16 at 16:59; Status DC Ondansetron HCl (Zofran) 4 mg PRN Q8HRS PRN IV NAUSEA/VOMITING; Start 09/02/16 at 16:15; Stop 09/03/16 at 16:14; Status DC Fentanyl Citrate 50 mcg 50 mcg PRN Q1HR PRN IV PAIN Last administered on 17:21; Start 09/02/16 at 16:15; Stop 09/04/16 at 23:59 Sodium Chloride (Iv Sodium Chloride 0.9% 1000ml Bag) 1,000 ml @ 100 mls/hr Q10H IV Last administered on 09/03/16 11:47; Start 09/02/16 at 16:06; Stop at 16:05; Status DC Metronidazole (Flagyl) 500 mg Q8HRS PO Last administered on 09/03/16 05:30; Start 09/02/16 at 17:00; Stop 09/03/16 at 12:50; Status DC Morphine Sulfate 4 mg PRN Q2HR PRN IV pain Last administered on 09/03/16 20:04 ; Start 09/02/16 at 17:00 Oxycodone/ Acetaminophen (Percocet 7.5/ 325) 1 tab PRN Q4HRS PRN PO pain Last administered on 09/05/16 08:31; Start 09/02/16 at 17:00 Multi-Ingredient Mouthwash/Gargle (Gi Cocktail Single Dose) 15 ml 1X ONCE SWSW Last administered on 09/02/16 17:21; Start 09/02/16 at 17:00; Stop 09/02/16 at 17:01; Status DC Sucralfate (Carafate) 1 gm BID PO Last administered on 09/05/16 08:30; Start 09/02/16 at 21:00 Pantoprazole Sodium (Protonix Vial) 40 mg 1X ONCE IVP Last administered on 09/02 17:21; Start 09/02/16 at 17:00; Stop 09/02/16 at 17:01; Status DC Pantoprazole Sodium (Protonix) 40 mg BIDAC PO Last administered on 09/05/16 08 :31; Start 09/03/16 at 07:30 Insulin Aspart (Novolog) 0-7 UNITS TIDWMEALS SQ ; Start 09/02/16 at 17:30 Dextrose 12.5 gm 12.5 gm PRN Q15MIN PRN IV SEE COMMENTS; Start 09/02/16 at 17:00 Potassium Chloride (KCl Premix 10meq) 100 ml @ 100 mls/hr Q1H IV Last administered on 09/02/16 19:56; Start 09/02/16 at 17:00; Stop 09/02/16 at 18:59; Status DC Potassium Chloride (Klor-Con) 20 meq 1X ONCE PO Last administered on 09/02/16 18:20; Start 09/02/16 at 17:00; Stop 09/02/16 at 17:01; Status DC Enoxaparin Sodium (Lovenox Per Pharmacy Prophylaxis Dosing) 1 each PRN DAILY PRN MC SEE COMMENTS; Start 09/02/16 at 17:00 Enoxaparin Sodium 40 mg 40 mg Q24H SQ Last administered on 09/04/16 16:54; Start 09/02/16 at 18:00 Sodium Chloride (Iv Sodium Chloride 0.9% 1000ml Bag) 1,000 ml @ 1,000 mls/hr 1X ONCE IV Last administered on 09/02/16 23:03; Start 09/02/16 at 23:00; Stop 09/02/16 at 23:59; Status DC Ciprofloxacin (Cipro) 500 mg BID PO Last administered on 09/03/16 08:39; Start 09/02/16 at 23:30; Stop 09/03/16 at 12:50; Status DC Vancomycin HCl 125 mg [id number] PO Last administered on 09/04/16 08:27; Start at 09:00; Stop 09/04/16 at 10:59; Status DC Hydromorphone HCl (Dilaudid) 1 mg PRN Q2HR PRN IV PAIN Last administered on 10:39; Start 09/03/16 at 22:30 Zolpidem Tartrate (Ambien) 10 mg PRN QHS PRN PO INSOMNIA Last administered on 22:21; Start 09/03/16 at 22:30 Hydrocortisone Sodium Succinate (Solu-Cortef) 100 mg Q8HRS IV Last administered on 09/05/16 06:32; Start 09/04/16 at 06:00 Potassium Chloride (Klor-Con) 40 meq 1X ONCE PO Last administered on 13:17; Start 09/04/16 at 12:00; Stop 09/04/16 at 12:01; Status DC Potassium Chloride (Klor-Con) 20 meq [id number] PO Last administered on 08:31; Start 09/05/16 at 08:00 Potassium Chloride (Klor-Con) 40 meq 1X ONCE PO Last administered on 10:38; Start 09/05/16 at 09:00; Stop 09/05/16 at 09:01; Status DC Active Scripts Active Reported Zolpidem Tartrate 10 Mg Tablet 1 Tab PO QHS Vitals/I & O Vital Sign - Last 24 Hours 09/04/16 09/04/16 09/04/16 09/04/16 11:38 13:23 14:41 15:00 Temp 97.9 97.9 Pulse 89 Resp 14 14 16 18 B/P 141/80 Pulse Ox 97 97 97 98 O2 Delivery Room Air Room Air Room Air 09/04/16 09/04/16 09/04/16 09/04/16 16:53 19:15 20:00 20:25 Temp 98.1 98.1 Pulse 98 Resp 16 16 B/P 138/87 Pulse Ox 98 95 O2 Delivery Room Air Room Air Room Air Room Air 09/04/16 09/04/16 09/04/16 09/05/16 22:21 22:21 23:14 01:22 Temp 98.8 98.8 Pulse 96 Resp 16 B/P 139/88 Pulse Ox 96 O2 Delivery Room Air Room Air Room Air Room Air 09/05/16 09/05/16 09/05/16 09/05/16 03:25 04:10 04:15 06:32 Temp 97.9 97.9 Pulse 98 Resp 16 B/P 137/83 Pulse Ox 94 O2 Delivery Room Air Room Air Room Air Room Air 09/05/16 09/05/16 09/05/16 09/05/16 07:00 08:00 08:31 08:31 Temp 98.1 98.1 Pulse 111 Resp 16 16 16 B/P 162/96 Pulse Ox 95 94 94 O2 Delivery Room Air Room Air Room Air Room Air 09/05/16 09/05/16 09/05/16 09:01 09:31 10:39 Resp 16 16 16 Pulse Ox 94 94 94 O2 Delivery Room Air Room Air Room Air Intake and Output 09/04/16 09/04/16 09/05/16 15:00 23:00 07:00 Intake Total 450 ml 480 ml Output Total 350 ml Balance 100 ml 480 ml MARJAN VELASCO III DO Sep 05, 2016 11:21
--- NOTE | 2016-09-05 13:40 | PDOC ---
G I PROGRESS NOTE Reason for Follow-up Abd pain Subjective Tolerating po Physical Exam Lungs clear CV S1 S2 AABd +BS, soft, mild tenderness Review of Relevant I have reviewed the following items zena (where applicable) has been applied. Labs Laboratory Tests Test 09/03/16 16:13 09/03/16 22:05 09/03/16 22:10 09/04/16 04:25 Glucose (Fingerstick) 71mg/dL (70-99) 15mg/dL (70-99) 93mg/dL (70-99) White Blood Count 13.1x10^3/uL (4.0-11.0) Red Blood Count 4.65x10^6/uL (4.30-5.70) Hemoglobin 13.8g/dL (13.0-17.5) Hematocrit 40.6% (39.0-53.0) Mean Corpuscular Volume 87fL (79-100) Mean Corpuscular Hemoglobin 30pg (25-35) Mean Corpuscular Hemoglobin Concent 34g/dL (31-37) Red Cell Distribution Width 13.0% (11.5-14.5) Platelet Count 256x10^3/uL (140-400) Neutrophils (%) (Auto) 55% (31-73) Lymphocytes (%) (Auto) 36% (24-48) Monocytes (%) (Auto) 7% (0-9) Eosinophils (%) (Auto) 1% (0-3) Basophils (%) (Auto) 1% (0-3) Neutrophils # (Auto) 7.2x10^3uL (1.8-7.7) Lymphocytes # (Auto) 4.7x10^3/uL (1.0-4.8) Monocytes # (Auto) 0.9x10^3/uL (0.0-1.1) Eosinophils # (Auto) 0.2x10^3/uL (0.0-0.7) Basophils # (Auto) 0.1x10^3/uL (0.0-0.2) Sodium Level 144mmol/L (136-145) Potassium Level 3.0mmol/L (3.5-5.1) Chloride Level 108mmol/L (98-107) Carbon Dioxide Level 27mmol/L (21-32) Anion Gap 9 (6-14) Blood Urea Nitrogen 8mg/dL (8-26) Creatinine 0.8mg/dL (0.7-1.3) Estimated GFR (Cockcroft-Gault) 109.4 Glucose Level 73mg/dL (70-99) Calcium Level 8.5mg/dL (8.5-10.1) Test 09/04/16 07:22 09/04/16 11:44 09/04/16 16:54 09/04/16 20:39 Glucose (Fingerstick) 80mg/dL (70-99) 120mg/dL (70-99) 120mg/dL (70-99) 139mg/dL (70-99) Test 09/05/16 04:37 09/05/16 05:30 09/05/16 08:57 09/05/16 12:34 White Blood Count 20.3x10^3/uL (4.0-11.0) Red Blood Count 5.13x10^6/uL (4.30-5.70) Hemoglobin 14.8g/dL (13.0-17.5) Hematocrit 44.5% (39.0-53.0) Mean Corpuscular Volume 87fL (79-100) Mean Corpuscular Hemoglobin 29pg (25-35) Mean Corpuscular Hemoglobin Concent 33g/dL (31-37) Red Cell Distribution Width 12.5% (11.5-14.5) Platelet Count 338x10^3/uL (140-400) Neutrophils (%) (Auto) 69% (31-73) Lymphocytes (%) (Auto) 24% (24-48) Monocytes (%) (Auto) 7% (0-9) Eosinophils (%) (Auto) 0% (0-3) Basophils (%) (Auto) 0% (0-3) Neutrophils # (Auto) 14.1x10^3uL (1.8-7.7) Lymphocytes # (Auto) 4.8x10^3/uL (1.0-4.8) Monocytes # (Auto) 1.3x10^3/uL (0.0-1.1) Eosinophils # (Auto) 0.0x10^3/uL (0.0-0.7) Basophils # (Auto) 0.0x10^3/uL (0.0-0.2) Sodium Level 142mmol/L (136-145) Potassium Level 3.1mmol/L (3.5-5.1) Chloride Level 103mmol/L (98-107) Carbon Dioxide Level 30mmol/L (21-32) Anion Gap 9 (6-14) Blood Urea Nitrogen 8mg/dL (8-26) Creatinine 0.7mg/dL (0.7-1.3) Estimated GFR (Cockcroft-Gault) 127.6 Glucose Level 87mg/dL (70-99) Calcium Level 9.0mg/dL (8.5-10.1) Glucose (Fingerstick) 102mg/dL (70-99) 115mg/dL (70-99) Laboratory Tests Test 09/04/16 16:54 09/04/16 20:39 09/05/16 04:37 09/05/16 05:30 Glucose (Fingerstick) 120mg/dL (70-99) 139mg/dL (70-99) White Blood Count 20.3x10^3/uL (4.0-11.0) Red Blood Count 5.13x10^6/uL (4.30-5.70) Hemoglobin 14.8g/dL (13.0-17.5) Hematocrit 44.5% (39.0-53.0) Mean Corpuscular Volume 87fL (79-100) Mean Corpuscular Hemoglobin 29pg (25-35) Mean Corpuscular Hemoglobin Concent 33g/dL (31-37) Red Cell Distribution Width 12.5% (11.5-14.5) Platelet Count 338x10^3/uL (140-400) Neutrophils (%) (Auto) 69% (31-73) Lymphocytes (%) (Auto) 24% (24-48) Monocytes (%) (Auto) 7% (0-9) Eosinophils (%) (Auto) 0% (0-3) Basophils (%) (Auto) 0% (0-3) Neutrophils # (Auto) 14.1x10^3uL (1.8-7.7) Lymphocytes # (Auto) 4.8x10^3/uL (1.0-4.8) Monocytes # (Auto) 1.3x10^3/uL (0.0-1.1) Eosinophils # (Auto) 0.0x10^3/uL (0.0-0.7) Basophils # (Auto) 0.0x10^3/uL (0.0-0.2) Sodium Level 142mmol/L (136-145) Potassium Level 3.1mmol/L (3.5-5.1) Chloride Level 103mmol/L (98-107) Carbon Dioxide Level 30mmol/L (21-32) Anion Gap 9 (6-14) Blood Urea Nitrogen 8mg/dL (8-26) Creatinine 0.7mg/dL (0.7-1.3) Estimated GFR (Cockcroft-Gault) 127.6 Glucose Level 87mg/dL (70-99) Calcium Level 9.0mg/dL (8.5-10.1) Test 09/05/16 08:57 09/05/16 12:34 Glucose (Fingerstick) 102mg/dL (70-99) 115mg/dL (70-99) Microbiology 09/02/16 Blood Culture - Preliminary, Resulted NO GROWTH AFTER 2 DAYS 09/02/16 Fecal Leukocyte Stain - Final, Complete Medications Current Medications Fentanyl Citrate 25 mcg 25 mcg PRN Q15MIN PRN IV PAIN GREATER THAN 3/10 Last administered on 09/02/16 14:52; Start 09/02/16 at 13:00; Stop 09/02/16 at 16:50; Status DC Sodium Chloride (Iv Sodium Chloride 0.9% 1000ml Bag) 1,000 ml @ 1,000 mls/hr Q1H IV Last administered on 09/02/16 13:12; Start 09/02/16 at 13:00; Stop at 13:59; Status DC Ondansetron HCl 4 mg 4 mg 1X ONCE IV Last administered on 09/02/16 13:12; Start 09/02/16 at 13:00; Stop 09/02/16 at 13:05; Status DC Sodium Chloride 1,000 ml @ 1,000 mls/hr 1X ONCE IV Last administered on 14:08; Start 09/02/16 at 13:45; Stop 09/02/16 at 14:44; Status DC Sodium Chloride (Iv Sodium Chloride 0.9% 1000ml Bag) 1,000 ml @ 1,000 mls/hr 1X ONCE IV Last administered on 09/02/16 16:06; Start 09/02/16 at 16:00; Stop 09/02/16 at 16:59; Status DC Ondansetron HCl (Zofran) 4 mg PRN Q8HRS PRN IV NAUSEA/VOMITING; Start 09/02/16 at 16:15; Stop 09/03/16 at 16:14; Status DC Fentanyl Citrate 50 mcg 50 mcg PRN Q1HR PRN IV PAIN Last administered on 17:21; Start 09/02/16 at 16:15; Stop 09/04/16 at 23:59 Sodium Chloride (Iv Sodium Chloride 0.9% 1000ml Bag) 1,000 ml @ 100 mls/hr Q10H IV Last administered on 09/03/16 11:47; Start 09/02/16 at 16:06; Stop at 16:05; Status DC Metronidazole (Flagyl) 500 mg Q8HRS PO Last administered on 09/03/16 05:30; Start 09/02/16 at 17:00; Stop 09/03/16 at 12:50; Status DC Morphine Sulfate 4 mg PRN Q2HR PRN IV pain Last administered on 09/03/16 20:04 ; Start 09/02/16 at 17:00 Oxycodone/ Acetaminophen (Percocet 7.5/ 325) 1 tab PRN Q4HRS PRN PO pain Last administered on 09/05/16 13:05; Start 09/02/16 at 17:00 Multi-Ingredient Mouthwash/Gargle (Gi Cocktail Single Dose) 15 ml 1X ONCE SWSW Last administered on 09/02/16 17:21; Start 09/02/16 at 17:00; Stop 09/02/16 at 17:01; Status DC Sucralfate (Carafate) 1 gm BID PO Last administered on 09/05/16 08:30; Start 09/02/16 at 21:00 Pantoprazole Sodium (Protonix Vial) 40 mg 1X ONCE IVP Last administered on 09/02 17:21; Start 09/02/16 at 17:00; Stop 09/02/16 at 17:01; Status DC Pantoprazole Sodium (Protonix) 40 mg BIDAC PO Last administered on 09/05/16 08 :31; Start 09/03/16 at 07:30 Insulin Aspart (Novolog) 0-7 UNITS TIDWMEALS SQ ; Start 09/02/16 at 17:30 Dextrose 12.5 gm 12.5 gm PRN Q15MIN PRN IV SEE COMMENTS; Start 09/02/16 at 17:00 Potassium Chloride (KCl Premix 10meq) 100 ml @ 100 mls/hr Q1H IV Last administered on 09/02/16 19:56; Start 09/02/16 at 17:00; Stop 09/02/16 at 18:59; Status DC Potassium Chloride (Klor-Con) 20 meq 1X ONCE PO Last administered on 09/02/16 18:20; Start 09/02/16 at 17:00; Stop 09/02/16 at 17:01; Status DC Enoxaparin Sodium (Lovenox Per Pharmacy Prophylaxis Dosing) 1 each PRN DAILY PRN MC SEE COMMENTS; Start 09/02/16 at 17:00 Enoxaparin Sodium 40 mg 40 mg Q24H SQ Last administered on 09/04/16 16:54; Start 09/02/16 at 18:00 Sodium Chloride (Iv Sodium Chloride 0.9% 1000ml Bag) 1,000 ml @ 1,000 mls/hr 1X ONCE IV Last administered on 09/02/16 23:03; Start 09/02/16 at 23:00; Stop 09/02/16 at 23:59; Status DC Ciprofloxacin (Cipro) 500 mg BID PO Last administered on 09/03/16 08:39; Start 09/02/16 at 23:30; Stop 09/03/16 at 12:50; Status DC Vancomycin HCl 125 mg [id number] PO Last administered on 09/04/16 08:27; Start at 09:00; Stop 09/04/16 at 10:59; Status DC Hydromorphone HCl (Dilaudid) 1 mg PRN Q2HR PRN IV PAIN Last administered on 13:04; Start 09/03/16 at 22:30 Zolpidem Tartrate (Ambien) 10 mg PRN QHS PRN PO INSOMNIA Last administered on 22:21; Start 09/03/16 at 22:30 Hydrocortisone Sodium Succinate (Solu-Cortef) 100 mg Q8HRS IV Last administered on 09/05/16 13:05; Start 09/04/16 at 06:00 Potassium Chloride (Klor-Con) 40 meq 1X ONCE PO Last administered on 13:17; Start 09/04/16 at 12:00; Stop 09/04/16 at 12:01; Status DC Potassium Chloride (Klor-Con) 20 meq [id number] PO Last administered on 08:31; Start 09/05/16 at 08:00 Potassium Chloride (Klor-Con) 40 meq 1X ONCE PO Last administered on 10:38; Start 09/05/16 at 09:00; Stop 09/05/16 at 09:01; Status DC Active Scripts Active Reported Zolpidem Tartrate 10 Mg Tablet 1 Tab PO QHS Vitals/I & O Vital Sign - Last 24 Hours 09/04/16 09/04/16 09/04/16 09/04/16 14:41 15:00 16:53 19:15 Temp 97.9 98.1 97.9 98.1 Pulse 89 98 Resp 16 18 16 16 B/P 141/80 138/87 Pulse Ox 97 98 98 95 O2 Delivery Room Air Room Air Room Air 09/04/16 09/04/16 09/04/16 09/04/16 20:00 20:25 22:21 22:21 O2 Delivery Room Air Room Air Room Air Room Air 09/04/16 09/05/16 09/05/16 09/05/16 23:14 01:22 03:25 04:10 Temp 98.8 97.9 98.8 97.9 Pulse 96 98 Resp 16 16 B/P 139/88 137/83 Pulse Ox 96 94 O2 Delivery Room Air Room Air Room Air Room Air 09/05/16 09/05/16 09/05/16 09/05/16 04:15 06:32 07:00 08:00 Temp 98.1 98.1 Pulse 111 Resp 16 B/P 162/96 Pulse Ox 95 O2 Delivery Room Air Room Air Room Air Room Air 09/05/16 09/05/16 09/05/16 09/05/16 08:31 08:31 09:31 10:39 Resp 16 16 16 16 Pulse Ox 94 94 94 94 O2 Delivery Room Air Room Air Room Air Room Air 09/05/16 09/05/16 09/05/16 09/05/16 11:00 11:09 13:04 13:05 Temp 98.5 98.5 Pulse 84 Resp 18 16 16 16 B/P 162/92 Pulse Ox 95 94 94 94 O2 Delivery Room Air Room Air Room Air Room Air Intake and Output 09/04/16 09/04/16 09/05/16 15:00 23:00 07:00 Intake Total 450 ml 480 ml Output Total 350 ml Balance 100 ml 480 ml Problem List Problems Medical Problems: (1) Dehydration Status: Acute (2) Leukocytosis Status: Acute Assessment Abd pain-with low cortisol level, [place] disease likely, o/p steroid with endocrinology follow up advised DIALLO WAGNER MD Sep 05, 2016 13:40
[2016-09-05 15:00] VITALS: BP 140/83
[2016-09-05] MEDS: ENOXAPARIN 40 MG/0.4 ML DISP.SYRIN. SQ SCH (16:57)
[2016-09-05 19:10] VITALS: BP 140/84
[2016-09-05] MEDS: ZOLPIDEM 5 MG TABLET. PO PRN (22:15)
[2016-09-05 23:49] VITALS: BP 137/77
[2016-09-06] MEDS: HYDROMORPHONE 2 MG/ML VIAL. IV PRN ×10 (00:35→23:01)
[2016-09-06] MEDS: OXYCODONE/APAP 7.5/325 TABLET. PO PRN ×5 (03:25→22:17)
[2016-09-06 03:28] VITALS: BP 129/74
[2016-09-06 05:32] LABS: BASO % 0 % (0-3); EOS % 0 % (0-3); HEMATOCRIT 43.4 % (39.0-53.0); HEMOGLOBIN 14.9 g/dL (13.0-17.5); LYMPH # 4.9 x10^3/uL (1.0-4.8); LYMPH % 22 % (24-48); MEAN CORPUSCULAR HEMOGLOBIN 29 pg (25-35); MEAN CORPUSCULAR HGB CONC 34 g/dL (31-37); MEAN CORPUSCULAR VOLUME 85 fL (79-100); MONO % 5 % (0-9); NEUT % 73 % (31-73); PLATELET COUNT 340 x10^3/uL (140-400); RED BLOOD COUNT 5.11 x10^6/uL (4.30-5.70); RED CELL DISTRIBUTION WIDTH 12.7 % (11.5-14.5)
[2016-09-06] MEDS: HYDROCORTISONE SOD SUCC/PF 100 MG/2 ML VIAL. IV SCH ×2 (05:38→13:42)
[2016-09-06 05:52] LABS: CALCIUM 8.6 mg/dL (8.5-10.1); CREATININE 0.8 mg/dL (0.7-1.3); GFR 109.4; POTASSIUM 3.2 mmol/L (3.5-5.1)
[2016-09-06 07:10] VITALS: BP 160/94
[2016-09-06] MEDS: INSULIN ASPART 300 UNITS/3 ML INSULN.PEN SQ SCH ×3 (08:00→17:00)
[2016-09-06] MEDS: POTASSIUM CHLORIDE 20 MEQ TABLET.ER. PO SCH (08:09)
[2016-09-06] MEDS: PANTOPRAZOLE 40 MG TABLET. PO SCH ×2 (08:09→16:11)
[2016-09-06] MEDS: SUCRALFATE 1 GM TABLET. PO SCH ×2 (08:09→20:33)
[2016-09-06 11:20] VITALS: BP 148/81
--- NOTE | 2016-09-06 14:44 | PDOC ---
PROGRESS NOTES Chief Complaint Chief Complaint 1. Acute Abdominal Pain w/ diarrhea 2. Metabolic gap acidosis 3. Leukocytosis 4. Sepsis 5. Vasomotor Nephropathy 6. Hematemesis 7. Dehydration 8. Vomiting 9. H/O colon cancer s/p resxn and chemo [place] of state 5 yr ago History of Present Illness History of Present Illness Pt feeling better today Pt still has mild diarrhea and abd pain Discussed doing Cortrosyn stimulation test to assess adrenal function with pt and RN VSS Vitals Vitals Vital Signs Date Time Temp Pulse Resp B/P Pulse Ox O2 Delivery O2 Flow Rate FiO2 09/06/16 14:23 16 94 Room Air 09/06/16 11:20 97.7 86 148/81 97.7 Physical Exam General: Alert, Oriented X3, Cooperative, No acute distress Heart: Regular rate, No murmurs Lungs: Clear, Other (no wheezes present) Abdomen: Soft (tender diffusely), Other (Abd tenderness x4 quadrants, Normoactive Bowel Sounds) Extremities: No clubbing Skin: No rashes, Other (dry, poor turgor) Labs LABS Laboratory Tests Test 09/05/16 16:40 09/05/16 20:31 09/06/16 05:00 09/06/16 07:29 Glucose (Fingerstick) 140mg/dL (70-99) 137mg/dL (70-99) 87mg/dL (70-99) White Blood Count 22.0x10^3/uL (4.0-11.0) Red Blood Count 5.11x10^6/uL (4.30-5.70) Hemoglobin 14.9g/dL (13.0-17.5) Hematocrit 43.4% (39.0-53.0) Mean Corpuscular Volume 85fL (79-100) Mean Corpuscular Hemoglobin 29pg (25-35) Mean Corpuscular Hemoglobin Concent 34g/dL (31-37) Red Cell Distribution Width 12.7% (11.5-14.5) Platelet Count 340x10^3/uL (140-400) Neutrophils (%) (Auto) 73% (31-73) Lymphocytes (%) (Auto) 22% (24-48) Monocytes (%) (Auto) 5% (0-9) Eosinophils (%) (Auto) 0% (0-3) Basophils (%) (Auto) 0% (0-3) Neutrophils # (Auto) 16.1x10^3uL (1.8-7.7) Lymphocytes # (Auto) 4.9x10^3/uL (1.0-4.8) Monocytes # (Auto) 1.0x10^3/uL (0.0-1.1) Eosinophils # (Auto) 0.0x10^3/uL (0.0-0.7) Basophils # (Auto) 0.0x10^3/uL (0.0-0.2) Sodium Level 141mmol/L (136-145) Potassium Level 3.2mmol/L (3.5-5.1) Chloride Level 104mmol/L (98-107) Carbon Dioxide Level 30mmol/L (21-32) Anion Gap 7 (6-14) Blood Urea Nitrogen 11mg/dL (8-26) Creatinine 0.8mg/dL (0.7-1.3) Estimated GFR (Cockcroft-Gault) 109.4 Glucose Level 111mg/dL (70-99) Calcium Level 8.6mg/dL (8.5-10.1) Test 09/06/16 10:34 Glucose (Fingerstick) 200mg/dL (70-99) Review of Systems Review of Systems Complains of crampy abd pain Complains of sweating Assessment and Plan Assessmemt and Plan Problems Medical Problems: (1) Dehydration Status: Acute (2) Leukocytosis Status: Acute Assessment: 1. Acute Abdominal Pain w/ diarrhea 2. Metabolic gap acidosis 3. Leukocytosis 4. Sepsis 5. Vasomotor Nephropathy 6. Hematemesis 7. Dehydration 8. Vomiting 9. H/O colon cancer s/p resxn and chemo [place] of state 5 yr ago Plan: GI following - suspects [place] disease, O/P steroids and endocrine follow up Will check cortisol level and do Cortrosyn stimulation test this afternoon Will switch from Hydrocortisone to Dexamethasone so as not to interfere with the Cortrosyn test Recheck labs in am PTOT Problems: Comment Review of Relevant I have reviewed the following items zena (where applicable) has been applied. Labs Laboratory Tests Test 09/04/16 16:54 09/04/16 20:39 09/05/16 04:37 09/05/16 05:30 Glucose (Fingerstick) 120mg/dL (70-99) 139mg/dL (70-99) White Blood Count 20.3x10^3/uL (4.0-11.0) Red Blood Count 5.13x10^6/uL (4.30-5.70) Hemoglobin 14.8g/dL (13.0-17.5) Hematocrit 44.5% (39.0-53.0) Mean Corpuscular Volume 87fL (79-100) Mean Corpuscular Hemoglobin 29pg (25-35) Mean Corpuscular Hemoglobin Concent 33g/dL (31-37) Red Cell Distribution Width 12.5% (11.5-14.5) Platelet Count 338x10^3/uL (140-400) Neutrophils (%) (Auto) 69% (31-73) Lymphocytes (%) (Auto) 24% (24-48) Monocytes (%) (Auto) 7% (0-9) Eosinophils (%) (Auto) 0% (0-3) Basophils (%) (Auto) 0% (0-3) Neutrophils # (Auto) 14.1x10^3uL (1.8-7.7) Lymphocytes # (Auto) 4.8x10^3/uL (1.0-4.8) Monocytes # (Auto) 1.3x10^3/uL (0.0-1.1) Eosinophils # (Auto) 0.0x10^3/uL (0.0-0.7) Basophils # (Auto) 0.0x10^3/uL (0.0-0.2) Sodium Level 142mmol/L (136-145) Potassium Level 3.1mmol/L (3.5-5.1) Chloride Level 103mmol/L (98-107) Carbon Dioxide Level 30mmol/L (21-32) Anion Gap 9 (6-14) Blood Urea Nitrogen 8mg/dL (8-26) Creatinine 0.7mg/dL (0.7-1.3) Estimated GFR (Cockcroft-Gault) 127.6 Glucose Level 87mg/dL (70-99) Calcium Level 9.0mg/dL (8.5-10.1) Test 09/05/16 08:57 09/05/16 12:34 09/05/16 16:40 09/05/16 20:31 Glucose (Fingerstick) 102mg/dL (70-99) 115mg/dL (70-99) 140mg/dL (70-99) 137mg/dL (70-99) Test 09/06/16 05:00 09/06/16 07:29 09/06/16 10:34 White Blood Count 22.0x10^3/uL (4.0-11.0) Red Blood Count 5.11x10^6/uL (4.30-5.70) Hemoglobin 14.9g/dL (13.0-17.5) Hematocrit 43.4% (39.0-53.0) Mean Corpuscular Volume 85fL (79-100) Mean Corpuscular Hemoglobin 29pg (25-35) Mean Corpuscular Hemoglobin Concent 34g/dL (31-37) Red Cell Distribution Width 12.7% (11.5-14.5) Platelet Count 340x10^3/uL (140-400) Neutrophils (%) (Auto) 73% (31-73) Lymphocytes (%) (Auto) 22% (24-48) Monocytes (%) (Auto) 5% (0-9) Eosinophils (%) (Auto) 0% (0-3) Basophils (%) (Auto) 0% (0-3) Neutrophils # (Auto) 16.1x10^3uL (1.8-7.7) Lymphocytes # (Auto) 4.9x10^3/uL (1.0-4.8) Monocytes # (Auto) 1.0x10^3/uL (0.0-1.1) Eosinophils # (Auto) 0.0x10^3/uL (0.0-0.7) Basophils # (Auto) 0.0x10^3/uL (0.0-0.2) Sodium Level 141mmol/L (136-145) Potassium Level 3.2mmol/L (3.5-5.1) Chloride Level 104mmol/L (98-107) Carbon Dioxide Level 30mmol/L (21-32) Anion Gap 7 (6-14) Blood Urea Nitrogen 11mg/dL (8-26) Creatinine 0.8mg/dL (0.7-1.3) Estimated GFR (Cockcroft-Gault) 109.4 Glucose Level 111mg/dL (70-99) Calcium Level 8.6mg/dL (8.5-10.1) Glucose (Fingerstick) 87mg/dL (70-99) 200mg/dL (70-99) Laboratory Tests Test 09/05/16 16:40 09/05/16 20:31 09/06/16 05:00 09/06/16 07:29 Glucose (Fingerstick) 140mg/dL (70-99) 137mg/dL (70-99) 87mg/dL (70-99) White Blood Count 22.0x10^3/uL (4.0-11.0) Red Blood Count 5.11x10^6/uL (4.30-5.70) Hemoglobin 14.9g/dL (13.0-17.5) Hematocrit 43.4% (39.0-53.0) Mean Corpuscular Volume 85fL (79-100) Mean Corpuscular Hemoglobin 29pg (25-35) Mean Corpuscular Hemoglobin Concent 34g/dL (31-37) Red Cell Distribution Width 12.7% (11.5-14.5) Platelet Count 340x10^3/uL (140-400) Neutrophils (%) (Auto) 73% (31-73) Lymphocytes (%) (Auto) 22% (24-48) Monocytes (%) (Auto) 5% (0-9) Eosinophils (%) (Auto) 0% (0-3) Basophils (%) (Auto) 0% (0-3) Neutrophils # (Auto) 16.1x10^3uL (1.8-7.7) Lymphocytes # (Auto) 4.9x10^3/uL (1.0-4.8) Monocytes # (Auto) 1.0x10^3/uL (0.0-1.1) Eosinophils # (Auto) 0.0x10^3/uL (0.0-0.7) Basophils # (Auto) 0.0x10^3/uL (0.0-0.2) Sodium Level 141mmol/L (136-145) Potassium Level 3.2mmol/L (3.5-5.1) Chloride Level 104mmol/L (98-107) Carbon Dioxide Level 30mmol/L (21-32) Anion Gap 7 (6-14) Blood Urea Nitrogen 11mg/dL (8-26) Creatinine 0.8mg/dL (0.7-1.3) Estimated GFR (Cockcroft-Gault) 109.4 Glucose Level 111mg/dL (70-99) Calcium Level 8.6mg/dL (8.5-10.1) Test 09/06/16 10:34 Glucose (Fingerstick) 200mg/dL (70-99) Microbiology 09/02/16 Blood Culture - Preliminary, Resulted NO GROWTH AFTER 3 DAYS 09/02/16 Stool Culture - Final, Resulted 09/02/16 Stool Culture Result 1 (ODALIS) - Final, Resulted 09/02/16 Campylobacter Antigen Assay - Preliminary, Resulted 09/02/16 Campylobactor Result 1 - Preliminary, Resulted 09/02/16 Shiga Toxin Test - Final, Resulted Medications Current Medications Fentanyl Citrate 25 mcg 25 mcg PRN Q15MIN PRN IV PAIN GREATER THAN 3/10 Last administered on 09/02/16 14:52; Start 09/02/16 at 13:00; Stop 09/02/16 at 16:50; Status DC Sodium Chloride (Iv Sodium Chloride 0.9% 1000ml Bag) 1,000 ml @ 1,000 mls/hr Q1H IV Last administered on 09/02/16 13:12; Start 09/02/16 at 13:00; Stop at 13:59; Status DC Ondansetron HCl 4 mg 4 mg 1X ONCE IV Last administered on 09/02/16 13:12; Start 09/02/16 at 13:00; Stop 09/02/16 at 13:05; Status DC Sodium Chloride 1,000 ml @ 1,000 mls/hr 1X ONCE IV Last administered on 14:08; Start 09/02/16 at 13:45; Stop 09/02/16 at 14:44; Status DC Sodium Chloride (Iv Sodium Chloride 0.9% 1000ml Bag) 1,000 ml @ 1,000 mls/hr 1X ONCE IV Last administered on 09/02/16 16:06; Start 09/02/16 at 16:00; Stop 09/02/16 at 16:59; Status DC Ondansetron HCl (Zofran) 4 mg PRN Q8HRS PRN IV NAUSEA/VOMITING; Start 09/02/16 at 16:15; Stop 09/03/16 at 16:14; Status DC Fentanyl Citrate 50 mcg 50 mcg PRN Q1HR PRN IV PAIN Last administered on 17:21; Start 09/02/16 at 16:15; Stop 09/06/16 at 14:04; Status DC Sodium Chloride (Iv Sodium Chloride 0.9% 1000ml Bag) 1,000 ml @ 100 mls/hr Q10H IV Last administered on 09/03/16 11:47; Start 09/02/16 at 16:06; Stop at 16:05; Status DC Metronidazole (Flagyl) 500 mg Q8HRS PO Last administered on 09/03/16 05:30; Start 09/02/16 at 17:00; Stop 09/03/16 at 12:50; Status DC Morphine Sulfate 4 mg PRN Q2HR PRN IV MODERATE PAIN Last administered on 20:04; Start 09/02/16 at 17:00 Oxycodone/ Acetaminophen (Percocet 7.5/ 325) 1 tab PRN Q4HRS PRN PO pain Last administered on 09/06/16 13:53; Start 09/02/16 at 17:00 Multi-Ingredient Mouthwash/Gargle (Gi Cocktail Single Dose) 15 ml 1X ONCE SWSW Last administered on 09/02/16 17:21; Start 09/02/16 at 17:00; Stop 09/02/16 at 17:01; Status DC Sucralfate (Carafate) 1 gm BID PO Last administered on 09/06/16 08:09; Start 09/02/16 at 21:00 Pantoprazole Sodium (Protonix Vial) 40 mg 1X ONCE IVP Last administered on 09/02 17:21; Start 09/02/16 at 17:00; Stop 09/02/16 at 17:01; Status DC Pantoprazole Sodium (Protonix) 40 mg BIDAC PO Last administered on 09/06/16 08 :09; Start 09/03/16 at 07:30 Insulin Aspart (Novolog) 0-7 UNITS TIDWMEALS SQ ; Start 09/02/16 at 17:30 Dextrose 12.5 gm 12.5 gm PRN Q15MIN PRN IV SEE COMMENTS; Start 09/02/16 at 17:00 Potassium Chloride (KCl Premix 10meq) 100 ml @ 100 mls/hr Q1H IV Last administered on 09/02/16 19:56; Start 09/02/16 at 17:00; Stop 09/02/16 at 18:59; Status DC Potassium Chloride (Klor-Con) 20 meq 1X ONCE PO Last administered on 09/02/16 18:20; Start 09/02/16 at 17:00; Stop 09/02/16 at 17:01; Status DC Enoxaparin Sodium (Lovenox Per Pharmacy Prophylaxis Dosing) 1 each PRN DAILY PRN MC SEE COMMENTS; Start 09/02/16 at 17:00 Enoxaparin Sodium 40 mg 40 mg Q24H SQ Last administered on 09/05/16 16:57; Start 09/02/16 at 18:00 Sodium Chloride (Iv Sodium Chloride 0.9% 1000ml Bag) 1,000 ml @ 1,000 mls/hr 1X ONCE IV Last administered on 09/02/16 23:03; Start 09/02/16 at 23:00; Stop 09/02/16 at 23:59; Status DC Ciprofloxacin (Cipro) 500 mg BID PO Last administered on 09/03/16 08:39; Start 09/02/16 at 23:30; Stop 09/03/16 at 12:50; Status DC Vancomycin HCl 125 mg [id number] PO Last administered on 09/04/16 08:27; Start at 09:00; Stop 09/04/16 at 10:59; Status DC Hydromorphone HCl (Dilaudid) 1 mg PRN Q2HR PRN IV SEVERE PAIN Last administered on 09/06/16 13:53; Start 09/03/16 at 22:30 Zolpidem Tartrate (Ambien) 10 mg PRN QHS PRN PO INSOMNIA Last administered on 22:21; Start 09/03/16 at 22:30; Stop 09/05/16 at 16:54; Status DC Hydrocortisone Sodium Succinate (Solu-Cortef) 100 mg Q8HRS IV Last administered on 09/06/16 05:38; Start 09/04/16 at 06:00 Potassium Chloride (Klor-Con) 40 meq 1X ONCE PO Last administered on 13:17; Start 09/04/16 at 12:00; Stop 09/04/16 at 12:01; Status DC Potassium Chloride (Klor-Con) 20 meq [id number] PO Last administered on 08:09; Start 09/05/16 at 08:00 Potassium Chloride (Klor-Con) 40 meq 1X ONCE PO Last administered on 10:38; Start 09/05/16 at 09:00; Stop 09/05/16 at 09:01; Status DC Zolpidem Tartrate (Ambien) 5 mg PRN QHS PRN PO INSOMNIA Last administered on 22:15; Start 09/05/16 at 16:54 Active Scripts Active Reported Zolpidem Tartrate 10 Mg Tablet 1 Tab PO QHS Vitals/I & O Vital Sign - Last 24 Hours 09/05/16 09/05/16 09/05/16 09/05/16 15:00 15:19 17:23 19:10 Temp 97.9 98.4 97.9 98.4 Pulse 102 94 Resp 18 16 16 18 B/P 140/83 140/84 Pulse Ox 95 95 96 O2 Delivery Room Air Room Air Room Air 09/05/16 09/05/16 09/05/16 09/05/16 20:00 20:13 22:14 22:15 Pulse Ox 95 O2 Delivery Room Air Room Air Room Air Room Air 09/05/16 09/06/16 09/06/16 09/06/16 23:49 00:35 03:25 03:25 Temp 97.9 97.9 Pulse 87 Resp 18 B/P 137/77 Pulse Ox 94 O2 Delivery Room Air Room Air Room Air Room Air 09/06/16 09/06/16 09/06/16 09/06/16 03:28 05:34 07:10 08:00 Temp 97.6 97.5 97.6 97.5 Pulse 73 83 Resp 16 17 B/P 129/74 160/94 Pulse Ox 96 97 O2 Delivery Room Air Room Air Room Air Room Air 2/12/09/06/16 09/06/16 09/06/16 08:10 08:10 09:10 11:14 Resp 16 16 16 16 Pulse Ox 97 97 97 97 O2 Delivery Room Air Room Air Room Air Room Air 09/06/16 09/06/16 09/06/16 09/06/16 11:20 13:53 13:53 14:23 Temp 97.7 97.7 Pulse 86 Resp 20 16 16 16 B/P 148/81 Pulse Ox 94 94 94 94 O2 Delivery Room Air Room Air Room Air Room Air Intake and Output 09/05/16 09/05/16 09/06/16 15:00 23:00 07:00 Intake Total 640 ml Balance 640 ml MARJAN VELASCO III DO Sep 06, 2016 14:43
--- NOTE | 2016-09-06 15:07 | PDOC ---
Subjective: Subjective: Onc f/u- Colon cancer, elevated blood counts on admit Pt reports still significant fatigue, diarrhea, abd pain. No change with steroids. Objective: Vital Signs: Vital Signs Date Time Temp Pulse Resp B/P Pulse Ox O2 Delivery O2 Flow Rate FiO2 09/06/16 14:23 16 94 Room Air 09/06/16 11:20 97.7 86 148/81 97.7 Physical Exam: General: Alert, Oriented X3, Cooperative, No acute distress Lungs: Other (no resp distress) Psych/Mental Status: Mental status NL, Mood NL Labs/Imaging: CBC normal with exception of neutrophilia since steroids started Stim test underway Assessment/Plan A/P: 1. H/o colon cancer > 5 years ago- CT and endoscopies neg, likely cured. No further long term f/u needed. 2. Initial erythrocytosis, thrombocytosis, and neutrophilia due to hemoconcentration on admit. No concern for myeloproliferative neoplasms. Now neutrophilia due to steroids, not pathologic. D/W Dr. Ewing. LESLI VYAS DO Sep 06, 2016 15:07
[2016-09-06] MEDS ORDERED: DEXAMETHASONE 4 MG TABLET PO SCH (15:30)
[2016-09-06 15:54] VITALS: BP 151/87
[2016-09-06] MEDS ORDERED: COSYNTROPIN 0.25 MG VIAL IVP ONE (16:00)
[2016-09-06] MEDS: DEXAMETHASONE 4 MG TABLET PO SCH ×2 (18:15→22:17)
[2016-09-06] MEDS: ENOXAPARIN 40 MG/0.4 ML DISP.SYRIN. SQ SCH (18:18)
[2016-09-06 19:56] VITALS: BP 145/86
[2016-09-06] MEDS: ZOLPIDEM 5 MG TABLET. PO PRN (22:17)
[2016-09-06 23:11] VITALS: BP 135/79
--- NOTE | 2016-09-07 01:40 | CONS ---
DATE OF CONSULTATION: ONCOLOGY CONSULT NOTE REFERRING PROVIDER: Dr. Ewing. REASON FOR CONSULTATION: History of colon cancer, elevated blood counts. HISTORY OF PRESENT ILLNESS: The patient is a 35-year-old male who reports a history of stage III colon cancer diagnosed at the age of 30. He reports having an isolated fever of 106 degrees for 5 minutes; at that time, the evaluation was negative. He reports having no evidence of cancer on the CT scans; however, he was referred for a colonoscopy, which revealed cancer involvement. He then went for a hemicolectomy and reports having some invasion through the muscle wall with a few lymph nodes involved. It sounds like he completed chemotherapy with possibly Xelox in 2011. He has not had consistent Oncology followup since that time. He did have one scan after his chemotherapy for Oncology followup. [place]. He has had multiple GI evaluations at different facilities for ongoing abdominal pain. He has also had colonoscopies as recently as April, which have not revealed any further polyps or evidence of cancer. He presented to [facility] with a 3-day history of abdominal pain, nausea, vomiting and diarrhea. His labs were significant for neutrophilia with absolute neutrophil count significantly elevated and WBC 46.8, hemoglobin 19.3, platelets 596 with 2 days of IV fluids, although the counts have now resolved essentially back to normal. His white blood cell count is 13.1, hemoglobin 13.8, platelets 256. CT of the abdomen and pelvis done at [facility] only revealed fatty liver and no other evidence of cancer or other concerning findings. GI has been following him, Infectious Disease has been as well. I was asked to see him today because of his history of colon cancer and his is concerned that he could possibly have polycythemia vera. He did have a temperature of 100.4 at 3:00 a.m. this morning, but has been afebrile the rest of his admission. PAST MEDICAL HISTORY: Colon cancer, recurrent C. diff infection, chronic abdominal pain since 2013, neuropathy in his right hand, morbid obesity. PAST SURGICAL HISTORY: Hemicolectomy, multiple colonoscopies, tonsillectomy, ulcer surgery in 2014. FAMILY HISTORY: Dad from diabetic complications. Mom from heart related complications following oral weight loss medication. He has one sister and two brothers who are healthy. SOCIAL HISTORY: He is . He denies any tobacco, alcohol or drug use. He reports that he has lost multiple jobs due to complications from the ongoing abdominal symptoms. ALLERGIES: No known drug allergies. CURRENT MEDICATIONS: Potassium chloride, Solu-Cortef, Ambien, Dilaudid, Protonix, Carafate, Lovenox, Percocet, morphine, fentanyl. REVIEW OF SYSTEMS: Twelve-point review of systems completed and unremarkable with the exception of the fatigue, abdominal pain, diarrhea, nausea, vomiting, neuropathy in his right hand. His nausea continues, but he does want to progress his diet. PHYSICAL EXAMINATION: VITAL SIGNS: Temperature 97.5, T-max of 100.4 overnight, pulse 85, respiratory rate 18, blood pressure 129/77, 97% O2 on room air. GENERAL: He is alert and oriented, morbidly obese, does not appear to be in any distress at this time. HEENT: Extraocular muscle strength is intact. Mucous membranes are moist. No scleral icterus. CARDIOVASCULAR: Heart is regular in rhythm and rate. LUNGS: Clear to auscultation bilaterally. ABDOMEN: Does not appear tender, but upon palpation and directed questions, he winces with pain. EXTREMITIES: No edema. NEUROLOGIC: No focal deficits. SKIN: No concerning skin rashes or lesions. IMAGING AND LABORATORY DATA: Pertinent CBC and CT findings as above. His CMP was unremarkable with the exception of mild transaminitis, AST 48, ALT 66. C. diff testing negative. ASSESSMENT AND PLAN: The patient is a 35-year-old male with the following medical problems: 1. History of what sounds like possibly stage III colon cancer diagnosed at the age of 30, now 5 years out from his treatments. Clinically it appears he has been cured. He has had multiple scans with his various GI evaluations, which have never showed any recurrence of colon cancer. Our scans at [facility] were also unremarkable. He has had several colonoscopies as well, which have not revealed any recurring cancer. I reassured them that generally colon cancer does not reoccur 5 years out from treatments. Although he had somewhat scattered Oncology care the last 5 years, now at this point, I do not think he needs any further GI evaluation. He should continue with routine colonoscopies as suggested based on his last colonoscopy. 2. Initial neutrophilia, thrombocytosis and erythrocytosis. I discussed with his that this was all artificial due to his significant hemoconcentration from nausea, vomiting and diarrhea before presenting to the Emergency Room. All of his counts have now normalized. We discussed extensively that labs cannot correct that quickly with polycythemia vera but would remain high. He also does not fit the age bracket when myeloproliferative disorders are typically diagnosed. I have no concern about an underlying myeloproliferative disorder for him. I discussed this information both with the patient and over the cell phone with his . I also discussed this information with Dr. Ewing. From an Oncology standpoint, he can be discharged at any time. Thank you for this consultation and allowing me to participate in his care. LESLI VYAS DO DR: Demar JOB#: [id number] / [id number] POP
[2016-09-07 03:06] VITALS: BP 131/71
[2016-09-07 04:57] LABS: BASO % 0 % (0-3); EOS % 0 % (0-3); HEMATOCRIT 44.6 % (39.0-53.0); HEMOGLOBIN 15.2 g/dL (13.0-17.5); LYMPH # 3.4 x10^3/uL (1.0-4.8); LYMPH % 16 % (24-48); MEAN CORPUSCULAR HEMOGLOBIN 30 pg (25-35); MEAN CORPUSCULAR HGB CONC 34 g/dL (31-37); MEAN CORPUSCULAR VOLUME 87 fL (79-100); MONO % 3 % (0-9); NEUT % 81 % (31-73); PLATELET COUNT 330 x10^3/uL (140-400); RED BLOOD COUNT 5.12 x10^6/uL (4.30-5.70); RED CELL DISTRIBUTION WIDTH 13.1 % (11.5-14.5); WHITE BLOOD COUNT 21.7 x10^3/uL (4.0-11.0)
[2016-09-07 05:40] LABS: CALCIUM 9.1 mg/dL (8.5-10.1); CREATININE 0.8 mg/dL (0.7-1.3); GFR 109.4; POTASSIUM 3.1 mmol/L (3.5-5.1)
[2016-09-07] MEDS: DEXAMETHASONE 4 MG TABLET PO SCH ×2 (06:21→14:04)
[2016-09-07] MEDS: HYDROMORPHONE 2 MG/ML VIAL. IV PRN ×3 (06:22→11:07)
[2016-09-07 07:15] VITALS: BP_SYST 127; BP_SYST 129; BP_DIAS 48; BP_DIAS 77
[2016-09-07] MEDS: INSULIN ASPART 300 UNITS/3 ML INSULN.PEN SQ SCH ×2 (08:00→12:00)
[2016-09-07] MEDS: SUCRALFATE 1 GM TABLET. PO SCH (08:33)
[2016-09-07] MEDS: POTASSIUM CHLORIDE 20 MEQ TABLET.ER. PO SCH (08:33)
[2016-09-07] MEDS: PANTOPRAZOLE 40 MG TABLET. PO SCH (08:34)
[2016-09-07] MEDS: OXYCODONE/APAP 7.5/325 TABLET. PO PRN ×2 (08:34→14:04)
[2016-09-07 10:40] VITALS: BP 163/88
--- NOTE | 2016-09-07 12:10 | PDOC ---
PROGRESS NOTES Chief Complaint Chief Complaint 1. Acute Abdominal Pain w/ diarrhea 2. Metabolic gap acidosis 3. Leukocytosis 4. Sepsis 5. Vasomotor Nephropathy 6. Hematemesis 7. Dehydration 8. Vomiting 9. H/O colon cancer s/p resxn and chemo out of state 5 yr ago History of Present Illness History of Present Illness Pt resting in bed Pt still has mild diarrhea and abd pain Spoke with pt's on the phone Discussed following up with endocrine at Possible D/C if OK with GI VSS DW RN Vitals Vitals Vital Signs Date Time Temp Pulse Resp B/P Pulse Ox O2 Delivery O2 Flow Rate FiO2 09/07/16 11:07 97 Room Air 09/07/16 10:40 98.1 92 20 163/88 98.1 Physical Exam General: Alert, Oriented X3, Cooperative, No acute distress Heart: Regular rate, No murmurs Lungs: Clear, Other (no wheezes present) Abdomen: Soft (tender diffusely), Other (Abd tenderness x4 quadrants, Normoactive Bowel Sounds) Extremities: No clubbing Skin: No rashes, Other (dry, poor turgor) Labs LABS Laboratory Tests Test 09/06/16 17:34 09/06/16 20:47 09/07/16 03:22 09/07/16 07:14 Glucose (Fingerstick) 85mg/dL (70-99) 103mg/dL (70-99) 129mg/dL (70-99) White Blood Count 21.7x10^3/uL (4.0-11.0) Red Blood Count 5.12x10^6/uL (4.30-5.70) Hemoglobin 15.2g/dL (13.0-17.5) Hematocrit 44.6% (39.0-53.0) Mean Corpuscular Volume 87fL (79-100) Mean Corpuscular Hemoglobin 30pg (25-35) Mean Corpuscular Hemoglobin Concent 34g/dL (31-37) Red Cell Distribution Width 13.1% (11.5-14.5) Platelet Count 330x10^3/uL (140-400) Neutrophils (%) (Auto) 81% (31-73) Lymphocytes (%) (Auto) 16% (24-48) Monocytes (%) (Auto) 3% (0-9) Eosinophils (%) (Auto) 0% (0-3) Basophils (%) (Auto) 0% (0-3) Neutrophils # (Auto) 17.6x10^3uL (1.8-7.7) Lymphocytes # (Auto) 3.4x10^3/uL (1.0-4.8) Monocytes # (Auto) 0.6x10^3/uL (0.0-1.1) Eosinophils # (Auto) 0.0x10^3/uL (0.0-0.7) Basophils # (Auto) 0.0x10^3/uL (0.0-0.2) Sodium Level 141mmol/L (136-145) Potassium Level 3.1mmol/L (3.5-5.1) Chloride Level 103mmol/L (98-107) Carbon Dioxide Level 29mmol/L (21-32) Anion Gap 9 (6-14) Blood Urea Nitrogen 10mg/dL (8-26) Creatinine 0.8mg/dL (0.7-1.3) Estimated GFR (Cockcroft-Gault) 109.4 Glucose Level 126mg/dL (70-99) Calcium Level 9.1mg/dL (8.5-10.1) Test 09/07/16 11:52 Glucose (Fingerstick) 224mg/dL (70-99) Review of Systems Review of Systems Complains of crampy abd pain Complains of sweating Assessment and Plan Assessmemt and Plan Problems Medical Problems: (1) Dehydration Status: Acute (2) Leukocytosis Status: Acute Assessment: 1. Acute Abdominal Pain w/ diarrhea 2. Metabolic gap acidosis 3. Leukocytosis 4. Sepsis 5. Vasomotor Nephropathy 6. Hematemesis 7. Dehydration 8. Vomiting 9. H/O colon cancer s/p resxn and chemo out of state 5 yr ago Plan: Possible D/C when OK with GI GI following - suspects [place] disease, O/P steroids and endocrine follow up Heme/onc following - no colon cancer recurrence, neutrophilia dt hemoconcentration on admit and dt steroids now, not pathologic Will send home with empiric steroids treating the pt as if he has Godfrey FU with endocrine at [facility] Repeat labs in am PTOT Continue home meds Problems: Comment Review of Relevant I have reviewed the following items zena (where applicable) has been applied. Labs Laboratory Tests Test 09/05/16 12:34 09/05/16 16:40 09/05/16 20:31 09/06/16 05:00 Glucose (Fingerstick) 115mg/dL (70-99) 140mg/dL (70-99) 137mg/dL (70-99) White Blood Count 22.0x10^3/uL (4.0-11.0) Red Blood Count 5.11x10^6/uL (4.30-5.70) Hemoglobin 14.9g/dL (13.0-17.5) Hematocrit 43.4% (39.0-53.0) Mean Corpuscular Volume 85fL (79-100) Mean Corpuscular Hemoglobin 29pg (25-35) Mean Corpuscular Hemoglobin Concent 34g/dL (31-37) Red Cell Distribution Width 12.7% (11.5-14.5) Platelet Count 340x10^3/uL (140-400) Neutrophils (%) (Auto) 73% (31-73) Lymphocytes (%) (Auto) 22% (24-48) Monocytes (%) (Auto) 5% (0-9) Eosinophils (%) (Auto) 0% (0-3) Basophils (%) (Auto) 0% (0-3) Neutrophils # (Auto) 16.1x10^3uL (1.8-7.7) Lymphocytes # (Auto) 4.9x10^3/uL (1.0-4.8) Monocytes # (Auto) 1.0x10^3/uL (0.0-1.1) Eosinophils # (Auto) 0.0x10^3/uL (0.0-0.7) Basophils # (Auto) 0.0x10^3/uL (0.0-0.2) Sodium Level 141mmol/L (136-145) Potassium Level 3.2mmol/L (3.5-5.1) Chloride Level 104mmol/L (98-107) Carbon Dioxide Level 30mmol/L (21-32) Anion Gap 7 (6-14) Blood Urea Nitrogen 11mg/dL (8-26) Creatinine 0.8mg/dL (0.7-1.3) Estimated GFR (Cockcroft-Gault) 109.4 Glucose Level 111mg/dL (70-99) Calcium Level 8.6mg/dL (8.5-10.1) Test 09/06/16 07:29 09/06/16 10:34 09/06/16 17:34 09/06/16 20:47 Glucose (Fingerstick) 87mg/dL (70-99) 200mg/dL (70-99) 85mg/dL (70-99) 103mg/dL (70-99) Test 09/07/16 03:22 09/07/16 07:14 09/07/16 11:52 White Blood Count 21.7x10^3/uL (4.0-11.0) Red Blood Count 5.12x10^6/uL (4.30-5.70) Hemoglobin 15.2g/dL (13.0-17.5) Hematocrit 44.6% (39.0-53.0) Mean Corpuscular Volume 87fL (79-100) Mean Corpuscular Hemoglobin 30pg (25-35) Mean Corpuscular Hemoglobin Concent 34g/dL (31-37) Red Cell Distribution Width 13.1% (11.5-14.5) Platelet Count 330x10^3/uL (140-400) Neutrophils (%) (Auto) 81% (31-73) Lymphocytes (%) (Auto) 16% (24-48) Monocytes (%) (Auto) 3% (0-9) Eosinophils (%) (Auto) 0% (0-3) Basophils (%) (Auto) 0% (0-3) Neutrophils # (Auto) 17.6x10^3uL (1.8-7.7) Lymphocytes # (Auto) 3.4x10^3/uL (1.0-4.8) Monocytes # (Auto) 0.6x10^3/uL (0.0-1.1) Eosinophils # (Auto) 0.0x10^3/uL (0.0-0.7) Basophils # (Auto) 0.0x10^3/uL (0.0-0.2) Sodium Level 141mmol/L (136-145) Potassium Level 3.1mmol/L (3.5-5.1) Chloride Level 103mmol/L (98-107) Carbon Dioxide Level 29mmol/L (21-32) Anion Gap 9 (6-14) Blood Urea Nitrogen 10mg/dL (8-26) Creatinine 0.8mg/dL (0.7-1.3) Estimated GFR (Cockcroft-Gault) 109.4 Glucose Level 126mg/dL (70-99) Calcium Level 9.1mg/dL (8.5-10.1) Glucose (Fingerstick) 129mg/dL (70-99) 224mg/dL (70-99) Laboratory Tests Test 09/06/16 17:34 09/06/16 20:47 09/07/16 03:22 09/07/16 07:14 Glucose (Fingerstick) 85mg/dL (70-99) 103mg/dL (70-99) 129mg/dL (70-99) White Blood Count 21.7x10^3/uL (4.0-11.0) Red Blood Count 5.12x10^6/uL (4.30-5.70) Hemoglobin 15.2g/dL (13.0-17.5) Hematocrit 44.6% (39.0-53.0) Mean Corpuscular Volume 87fL (79-100) Mean Corpuscular Hemoglobin 30pg (25-35) Mean Corpuscular Hemoglobin Concent 34g/dL (31-37) Red Cell Distribution Width 13.1% (11.5-14.5) Platelet Count 330x10^3/uL (140-400) Neutrophils (%) (Auto) 81% (31-73) Lymphocytes (%) (Auto) 16% (24-48) Monocytes (%) (Auto) 3% (0-9) Eosinophils (%) (Auto) 0% (0-3) Basophils (%) (Auto) 0% (0-3) Neutrophils # (Auto) 17.6x10^3uL (1.8-7.7) Lymphocytes # (Auto) 3.4x10^3/uL (1.0-4.8) Monocytes # (Auto) 0.6x10^3/uL (0.0-1.1) Eosinophils # (Auto) 0.0x10^3/uL (0.0-0.7) Basophils # (Auto) 0.0x10^3/uL (0.0-0.2) Sodium Level 141mmol/L (136-145) Potassium Level 3.1mmol/L (3.5-5.1) Chloride Level 103mmol/L (98-107) Carbon Dioxide Level 29mmol/L (21-32) Anion Gap 9 (6-14) Blood Urea Nitrogen 10mg/dL (8-26) Creatinine 0.8mg/dL (0.7-1.3) Estimated GFR (Cockcroft-Gault) 109.4 Glucose Level 126mg/dL (70-99) Calcium Level 9.1mg/dL (8.5-10.1) Test 09/07/16 11:52 Glucose (Fingerstick) 224mg/dL (70-99) Microbiology 09/02/16 Blood Culture - Preliminary, Resulted NO GROWTH AFTER 4 DAYS 09/02/16 Stool Culture - Final, Resulted 09/02/16 Stool Culture Result 1 (ODALIS) - Final, Resulted 09/02/16 Campylobacter Antigen Assay - Preliminary, Resulted 09/02/16 Campylobactor Result 1 - Preliminary, Resulted 09/02/16 Shiga Toxin Test - Final, Resulted Medications Current Medications Fentanyl Citrate 25 mcg 25 mcg PRN Q15MIN PRN IV PAIN GREATER THAN 3/10 Last administered on 09/02/16 14:52; Start 09/02/16 at 13:00; Stop 09/02/16 at 16:50; Status DC Sodium Chloride (Iv Sodium Chloride 0.9% 1000ml Bag) 1,000 ml @ 1,000 mls/hr Q1H IV Last administered on 09/02/16 13:12; Start 09/02/16 at 13:00; Stop at 13:59; Status DC Ondansetron HCl 4 mg 4 mg 1X ONCE IV Last administered on 09/02/16 13:12; Start 09/02/16 at 13:00; Stop 09/02/16 at 13:05; Status DC Sodium Chloride 1,000 ml @ 1,000 mls/hr 1X ONCE IV Last administered on 14:08; Start 09/02/16 at 13:45; Stop 09/02/16 at 14:44; Status DC Sodium Chloride (Iv Sodium Chloride 0.9% 1000ml Bag) 1,000 ml @ 1,000 mls/hr 1X ONCE IV Last administered on 09/02/16 16:06; Start 09/02/16 at 16:00; Stop 09/02/16 at 16:59; Status DC Ondansetron HCl (Zofran) 4 mg PRN Q8HRS PRN IV NAUSEA/VOMITING; Start 09/02/16 at 16:15; Stop 09/03/16 at 16:14; Status DC Fentanyl Citrate 50 mcg 50 mcg PRN Q1HR PRN IV PAIN Last administered on 17:21; Start 09/02/16 at 16:15; Stop 09/06/16 at 14:04; Status DC Sodium Chloride (Iv Sodium Chloride 0.9% 1000ml Bag) 1,000 ml @ 100 mls/hr Q10H IV Last administered on 09/03/16 11:47; Start 09/02/16 at 16:06; Stop at 16:05; Status DC Metronidazole (Flagyl) 500 mg Q8HRS PO Last administered on 09/03/16 05:30; Start 09/02/16 at 17:00; Stop 09/03/16 at 12:50; Status DC Morphine Sulfate 4 mg PRN Q2HR PRN IV MODERATE PAIN Last administered on 20:04; Start 09/02/16 at 17:00 Oxycodone/ Acetaminophen (Percocet 7.5/ 325) 1 tab PRN Q4HRS PRN PO pain Last administered on 09/07/16 08:34; Start 09/02/16 at 17:00 Multi-Ingredient Mouthwash/Gargle (Gi Cocktail Single Dose) 15 ml 1X ONCE SWSW Last administered on 09/02/16 17:21; Start 09/02/16 at 17:00; Stop 09/02/16 at 17:01; Status DC Sucralfate (Carafate) 1 gm BID PO Last administered on 09/07/16 08:33; Start 09/02/16 at 21:00 Pantoprazole Sodium (Protonix Vial) 40 mg 1X ONCE IVP Last administered on 09/02 17:21; Start 09/02/16 at 17:00; Stop 09/02/16 at 17:01; Status DC Pantoprazole Sodium (Protonix) 40 mg BIDAC PO Last administered on 09/07/16 08 :34; Start 09/03/16 at 07:30 Insulin Aspart (Novolog) 0-7 UNITS TIDWMEALS SQ ; Start 09/02/16 at 17:30 Dextrose 12.5 gm 12.5 gm PRN Q15MIN PRN IV SEE COMMENTS; Start 09/02/16 at 17:00 Potassium Chloride (KCl Premix 10meq) 100 ml @ 100 mls/hr Q1H IV Last administered on 09/02/16 19:56; Start 09/02/16 at 17:00; Stop 09/02/16 at 18:59; Status DC Potassium Chloride (Klor-Con) 20 meq 1X ONCE PO Last administered on 09/02/16 18:20; Start 09/02/16 at 17:00; Stop 09/02/16 at 17:01; Status DC Enoxaparin Sodium (Lovenox Per Pharmacy Prophylaxis Dosing) 1 each PRN DAILY PRN MC SEE COMMENTS; Start 09/02/16 at 17:00 Enoxaparin Sodium 40 mg 40 mg Q24H SQ Last administered on 09/06/16 18:18; Start 09/02/16 at 18:00 Sodium Chloride (Iv Sodium Chloride 0.9% 1000ml Bag) 1,000 ml @ 1,000 mls/hr 1X ONCE IV Last administered on 09/02/16 23:03; Start 09/02/16 at 23:00; Stop 09/02/16 at 23:59; Status DC Ciprofloxacin (Cipro) 500 mg BID PO Last administered on 09/03/16 08:39; Start 09/02/16 at 23:30; Stop 09/03/16 at 12:50; Status DC Vancomycin HCl 125 mg [id number] PO Last administered on 09/04/16 08:27; Start at 09:00; Stop 09/04/16 at 10:59; Status DC Hydromorphone HCl (Dilaudid) 1 mg PRN Q2HR PRN IV SEVERE PAIN Last administered on 09/07/16 11:07; Start 09/03/16 at 22:30 Zolpidem Tartrate (Ambien) 10 mg PRN QHS PRN PO INSOMNIA Last administered on 22:21; Start 09/03/16 at 22:30; Stop 09/05/16 at 16:54; Status DC Hydrocortisone Sodium Succinate (Solu-Cortef) 100 mg Q8HRS IV Last administered on 09/06/16 05:38; Start 09/04/16 at 06:00; Stop 09/06/16 at 15:09 ; Status DC Potassium Chloride (Klor-Con) 40 meq 1X ONCE PO Last administered on 13:17; Start 09/04/16 at 12:00; Stop 09/04/16 at 12:01; Status DC Potassium Chloride (Klor-Con) 20 meq [id number] PO Last administered on 08:33; Start 09/05/16 at 08:00 Potassium Chloride (Klor-Con) 40 meq 1X ONCE PO Last administered on 10:38; Start 09/05/16 at 09:00; Stop 09/05/16 at 09:01; Status DC Zolpidem Tartrate (Ambien) 5 mg PRN QHS PRN PO INSOMNIA Last administered on 22:17; Start 09/05/16 at 16:54 Cosyntropin (Cortrosyn) 0.25 mg 1X ONCE IVP Last administered on 09/06/16 16: 12; Start 09/06/16 at 16:00; Stop 09/06/16 at 16:01; Status DC Dexamethasone (Decadron) 4 mg Q8HRS PO ; Start 09/06/16 at 15:30; Stop 09/06/16 at 15:30; Status DC Dexamethasone (Decadron) 4 mg Q8HRS PO Last administered on 09/07/16 06:21; Start 09/06/16 at 17:00 Active Scripts Active Reported Zolpidem Tartrate 10 Mg Tablet 1 Tab PO QHS Vitals/I & O Vital Sign - Last 24 Hours 09/06/16 09/06/16 09/06/16 09/06/16 13:53 13:53 14:53 15:54 Temp 97.7 97.7 Pulse 80 Resp 16 16 16 18 B/P 151/87 Pulse Ox 94 94 94 O2 Delivery Room Air Room Air Room Air 2/07/1109/06/16 09/06/16 09/06/16 16:12 18:15 18:15 19:56 Temp 98.1 98.1 Pulse 74 Resp 16 16 18 18 B/P 145/86 Pulse Ox 94 94 94 95 O2 Delivery Room Air Room Air Room Air Room Air 09/06/16 09/06/16 09/06/16 09/06/16 20:00 20:33 22:17 22:17 Resp 16 18 18 O2 Delivery Room Air Room Air 09/06/16 09/06/16 09/07/16 09/07/16 23:01 23:11 03:06 06:22 Temp 97.7 97.7 97.7 97.7 Pulse 76 79 Resp 18 16 18 14 B/P 135/79 131/71 Pulse Ox 94 100 O2 Delivery Room Air Room Air Room Air 09/07/16 09/07/16 09/07/16 09/07/16 07:15 08:00 08:34 08:35 Temp 99.7 99.7 Pulse 77 Resp 18 B/P 127/77 Pulse Ox 97 97 97 O2 Delivery Room Air Room Air Room Air Room Air 09/07/16 09/07/16 09/07/16 09/07/16 10:40 10:58 10:58 11:07 Temp 98.1 98.1 Pulse 92 Resp 20 B/P 163/88 Pulse Ox 95 97 97 97 O2 Delivery Room Air Room Air Room Air Room Air Intake and Output 09/06/16 09/06/16 09/07/16 15:00 23:00 07:00 Intake Total 580 ml 480 ml Balance 580 ml 480 ml MARJAN VELASCO III DO Sep 07, 2016 12:10
--- NOTE | 2016-09-07 12:22 | PDOC ---
Subjective: Subjective: Ongoing abd pain - comes and goes, cramping. Stools are less frequent and less watery. Eating okay. Says might go home today. Objective: Vital Signs: Vital Signs Date Time Temp Pulse Resp B/P Pulse Ox O2 Delivery O2 Flow Rate FiO2 09/07/16 11:07 97 Room Air 09/07/16 10:40 98.1 92 20 163/88 98.1 Labs: Laboratory Tests Test 09/06/16 17:34 09/06/16 20:47 09/07/16 07:14 09/07/16 11:52 Glucose (Fingerstick) 85mg/dL (70-99) 103mg/dL (70-99) 129mg/dL (70-99) 224mg/dL (70-99) PE: GEN: NAD LUNGS: CTAB HEART: RRR ABD: NABS, S/ND, periumbilical tenderness NEURO/PSYCH: A & O 3 A/P: Chronic abdominal pain w/ diarrhea, low cortisol -worse x 2 weeks prior to admission -h/o C Diff - neg here -h/o colon cancer s/p resection, last 'scopes 2015 -- Some improvement - now on PO steroids. Outpt endocrinology workup recommended, probably [place]. Possible DC today. MINERVA CHEEK Sep 07, 2016 12:22
[2016-09-07 16:20] LABS: TRANSGLUTAMINASE IGA AB <2 U/mL (0-3)
== END 2016-09-07 15:30 | disposition home or self-care (01) | DRG 871 ==
LOC: ER 11:53 → 6 SOUTH 16:05
PROVIDERS: ADMIT Internal Medicine; ATTEND Internal Medicine
DX: A41.9 Sepsis, unspecified organism (principal); N17.0 Acute kidney failure with tubular necrosis; E27.1 Primary adrenocortical insufficiency; K92.0 Hematemesis; E87.2 Acidosis; A04.7 Enterocolitis due to Clostridium difficile; Z90.49 Acquired absence of other specified parts of digestive tract; Z85.038 Personal history of other malignant neoplasm of large intestine; D75.1 Secondary polycythemia; D75.89 Other specified diseases of blood and blood-forming organs; E86.0 Dehydration; G89.29 Other chronic pain; K21.0 Gastro-esophageal reflux disease with esophagitis; K76.0 Fatty (change of) liver, not elsewhere classified; G62.9 Polyneuropathy, unspecified; E66.01 Morbid (severe) obesity due to excess calories; T38.0X5A Adverse effect of glucocorticoids and synthetic analogues, initial encounter; Z83.3 Family history of diabetes mellitus; Z87.11 Personal history of peptic ulcer disease; Z92.3 Personal history of irradiation; Z79.899 Other long term (current) drug therapy; Z68.36 Body mass index [BMI] 36.0-36.9, adult
CPT/HCPCS: 36415; 71010; 80048; 80053; 81001; 82533; 82947; 83516; 83605; 83690; 85007; 85027; 87040; 87045; 87205; 87324; 93005; 96361; 96374; 96375; 96376; C9113; G0481; J0834; J1170; J1650; J1720; J1815; J2270; J2405; J3010; J3480; J7030; J8540; 99285-25